=== PATIENT | male | born 1945 | race Caucasian/White ===

== ENCOUNTER → 2016-12-01 | Day surgery (SDC) | payer MEDICARE, OTHER ==
[~2016-12-01] MED LIST: Buffered Lidocaine 1% SYR 3ML* 3 ML/SYR SYRINGE INTRADERM ONE; Buffered Lidocaine 1% SYR 3ML* 3 ML/SYR SYRINGE ONE; DiMENhydriNATE IV* 50 MG/ML VIAL IV PUSH PRN; Famotidine IV* 10 MG/ML 2 ML (20 mg) IV ONE; Famotidine IV* 10 MG/ML 2 ML (20 mg) ONE; Ketorolac INJ* 30 MG/ML 1 ML VIAL ONE; Lidocaine 1% INJ* 10 MG/ML 30 ML SDV ONE; Lidocaine 2% PF * 5 ML VIAL ONE; Midazolam* 1 MG/ML 5 ML VIAL (5 MG) ONE; Ondansetron INJ* 2 MG/ML VIAL ONE; Propofol* 10 MG/ML 20 ML BTL IV PUSH ONE; fentaNYL* 50 MCG/ML 2 ML VIAL (100 MCG VIAL) ONE
[2016-12-01 10:50] VITALS: BP 130/76
--- NOTE | 2016-12-01 22:40 | OP ---
DATE OF OPERATION: 12/01/16 FORMERLY [facility] DATE OF : 49 SURGEON: Dr. Queen EXIT BOOTH AGENT: [facility] Carvajal ANESTHESIOLOGIST: Yudelka Sanches MD ANESTHESIA: Local MAC. PRE-OP DIAGNOSIS: Left carpal tunnel syndrome. POST-OP DIAGNOSIS: Left carpal tunnel syndrome. OPERATIVE PROCEDURE: Left carpal tunnel release. ESTIMATED BLOOD LOSS: Zero. TOURNIQUET TIME: 5 minutes. INDICATION FOR PROCEDURE: Raghavendra is a 71-year-old man with numbness and tingling in the median nerve distribution of his left hand. He presents for left carpal tunnel release. DESCRIPTION OF PROCEDURE: The patient was brought to the operating room, was given a sedation anesthetic, and a local infiltration with 10 cc of 1% plain lidocaine in the palm of his left hand. The skin of his left hand and forearm was prepped and draped in the usual sterile fashion. The hand and forearm were exsanguinated and the tourniquet elevated to 250 mmHg. A longitudinal incision was made in the palm in line with the ring finger. We dissected through the subcutaneous tissue sharply down to the transverse carpal ligament. The ligament was then incised with a knife and then more proximally with the scissors. The nerve was dissected free from the surrounding tissue, and there was an area of moderate compression at the mid portion of the ligament. The wound was irrigated and the skin edges were reapproximated with 4-0 nylon suture. The wound was dressed with Xeroform, 4x4, Webril, and an Mo wrap. The patient tolerated the procedure well and was brought to the recovery room in good condition. [id number]/[facility] #: [id number] MTDD
--- NOTE | 2016-12-27 21:33 | HP ---
PREOPERATIVE HISTORY AND PHYSICAL EXAM: DATE OF SURGERY/ADMISSION: 12/01/16 FOR[facility]LY [facility] DATE OF OFFICE VISIT/ENCOUNTER: 11/06/16 AGE: 71. ATTENDING SURGEON: Mikayla Queen MD PROCEDURE: Left wrist carpal tunnel release. CHIEF COMPLAINT: Numbness and tingling in left hand. HISTORY OF PRESENT ILLNESS: This is a 71-year-old male complaining of numbness and tingling in his left hand that has been present off and on for several years now. However, over the past month, it has been significantly worsening. He is interested in pursuing definitive treatment at this time in the form of a left carpal tunnel release. He had a right carpal tunnel release performed back in 2014 and has done quite well with that. The patient had a history of atrial fibrillation and has had 3 myocardial infarctions in the past. He has a defibrillator in place. He is on warfarin sodium 5 mg and we will plan on having him remain on warfarin throughout the surgical timeframe. We will also receive clearance for surgery from his sap data analyst, Dr. Abraham. PAST MEDICAL HISTORY: 1. History of atrial fibrillation. 2. Hypertension. 3. History of 3 myocardial infarctions. 4. History of stroke. 5. Hypercholesterolemia. PAST SURGICAL HISTORY: 1. Defibrillator placement. 2. Bilateral total knee arthroplasties by Dr. Perez. 3. Cardiac stent placement. 4. Right carpal tunnel release. CURRENT MEDICATIONS: 1. Amlodipine besylate 2.5 mg b.i.d. 2. Aspirin 81 mg daily. 3. Carvedilol 12.5 mg b.i.d. 4. Crestor 10 mg daily. 5. Irbesartan 150 mg daily. 6. Nitrostat 0.4 mg 1 sublingual q.5 minutes up to 3 doses p.r.n. 7. Ranitidine HCl 75 mg b.i.d. 8. Warfarin sodium 5 mg 1 tab daily 6 days a week; 1.5 tabs on Sunday or as directed. ALLERGIES: LIPITOR causes muscle cramps. NIASPAN, reaction unknown. OXYCODONE , reaction unknown. ULTRACET, reaction unknown. FAMILY MEDICAL HISTORY: Noncontributory. SOCIAL HISTORY: The patient is retired. He reports being a former smoker, but quit 40 years ago. He denies illicit drug use. He does admit to alcohol use on occasion. REVIEW OF SYSTEMS: General: Negative for fevers, chills, or night sweats. No known anesthesia problems. HEENT: Negative for headache, lightheadedness, or syncopal episodes. Integumentary: Negative for abrasions, lesions, or open wounds. Cardiothoracic: Positive for history of myocardial infarction x2. Positive for hypertension. Positive for history of atrial fibrillation. Negative for current chest pain, palpitations, or edema. Pulmonary: Positive for shortness of breath with exertion. Negative for chronic cough or COPD. GI : Negative for nausea, vomiting, diarrhea, constipation, or GERD. : Negative for nocturia, urinary frequency, urgency, history of UTIs, or kidney problems. Musculoskeletal: Positive for current complaint. Negative for chronic or intermittent back pain or history of fractures. Neurological: Positive for history of strokes. Negative for history of seizure or epilepsy. Endocrine: Negative for diabetes or thyroid issues. Hematologic: Positive for easy bruising and easy bleeding secondary to Coumadin. Negative for history of DVT. Infectious Disease: Negative for history of MRSA, hepatitis C , or HIV. PHYSICAL EXAMINATION GENERAL: Well-developed, well-nourished 71-year-old male in no acute distress. VITAL SIGNS: Height 5 feet tall, weight 206 pounds, pulse rate 64, blood pressure 116/80. HEENT: Normocephalic, atraumatic. Pupils are equal, round, and reactive to light and accommodation. Extraocular movements are intact. NECK: Supple. No palpable lymph nodes. Throat is clear. PULMONARY: Lungs are clear to auscultation bilaterally. No wheezes, rales, or rhonchi. CARDIOTHORACIC: Regular rate and rhythm. S1, S2. No murmurs, rubs, or gallops. No edema. ABDOMEN: Positive bowel sounds. Soft, nontender. NEUROLOGICAL: Alert and oriented x3. Cranial nerves II through XII are intact. Sensation is intact to light touch. MUSCULOSKELETAL: On exam of his left upper wrist/hand, he has no thenar wasting. There is a negative Tinel's sign, but decreased sensation to light touch in the median nerve distribution of the left hand. Positive Phalen's test. He has good range of motion of his wrist and can make a full fist. There is some weakness with thumb abduction. DIAGNOSTIC STUDIES: EMG nerve conduction study shows [id number] carpal tunnel syndrome on the left. PLAN: The patient is scheduled to undergo left wrist carpal tunnel release with Dr. Queen on 12/01/16. He will return to the office in 10 to 14 days postop for followup and suture removal. A prescription for [place] was e-scribed to the patient's pharmacy for postoperative pain management as he has allergies to ULTRACET and OXYCODONE. He will remain on his Coumadin throughout the surgical timeframe and we will receive clearance from his sap data analyst, Dr. Abraham, prior to surgery. [facility] JHA [id number]/[facility] #: [id number] YURI
== END | disposition home or self-care (01) ==
LOC: OREAST 08:30
PROVIDERS: ATTEND Orthopaedic Surgery
DX: G56.02 Carpal tunnel syndrome, left upper limb (principal); I25.10 Atherosclerotic heart disease of native coronary artery without angina pectoris; I25.2 Old myocardial infarction; Z95.818 Presence of other cardiac implants and grafts; Z79.01 Long term (current) use of anticoagulants; I48.91 Unspecified atrial fibrillation; I10 Essential (primary) hypertension; G47.33 Obstructive sleep apnea (adult) (pediatric)
CPT/HCPCS: J1885; J2250; J2405; J2704; J3010

== ENCOUNTER 2017-07-13 11:41 | Observation (INO) | payer MEDICARE, OTHER ==
[2017-07-13] MEDS ORDERED: Famotidine IV* 10 MG/ML 2 ML (20 mg) IV SLOW PU ONE (12:05)
[2017-07-13] MEDS ORDERED: methylPREDNISolone 125 MG* 2 ML VIAL IV ONE (12:05)
[2017-07-13 12:57] LABS: Hematocrit 40 % (42-52); Hemoglobin 13.3 g/dl (14.0-18.0); Mean Corpuscular HGB Conc 34 g/dl (31-36); Mean Corpuscular Hemoglobin 31 pg (27-31); Mean Corpuscular Volume 91 fL (80-94); Mean Platelet Volume 8 um3 (7.4-10.4); Red Blood Count 4.36 10^6/ul (4.0-5.4); Red Cell Distribution Width 13 % (10.5-15); White Blood Count 5.9 10^3/ul (3.5-10.8)
[2017-07-13 13:09] LABS: Albumin 3.6 g/dL (3.2-5.2); BUN/Creatinine Ratio 14.3 (8-20); Calcium 8.8 mg/dL (8.6-10.3); EGFR African American 83.4 (>60); EGFR Non-African American 64.8 (>60); Globulin 3.1 g/dL (2-4); Magnesium 1.9 mg/dL (1.9-2.7); Total Bilirubin 0.5 mg/dL (0.2-1.0); Total Protein 6.7 g/dL (6.4-8.9)
--- NOTE | 2017-07-13 13:41 | ED ---
Woody Trujillo Benjamin, scribed for Tre Boogie MD on 07/13/17 at 1204 . Allergic Reaction/Systemic - HPI Summary HPI Summary: 72yo male SHERYL c/o having an allergic reaction 30 minutes after taking flagyl, which the pt was rxed for his diverticulitis. 30 minutes after PO intake of flagyl, pt had low BP, became diaphoretic, and mildly SOB. Pt went to PCP for his symptoms and was given 0.5mg Epi. Pt was also given 50mg IV Benadryl by EMS. Pt has a defibrillator in place. Pt denies any CP or palpitations. No swelling in face, throat, or lips. FHx of [place]. - History of Current Complaint Chief Complaint: EDAllergicReaction Time Seen by Provider: 07/13/17 11:53 Hx Obtained From: Patient Onset/Duration: Sudden Onset, Started hours ago - 1 hour ago, Resolved Timing: Intermittent Severity Initially: Moderate Severity Currently: None Pain Intensity: 0 Pain Scale Used: 0-10 Numeric Associated Signs And Symptoms: Positive: Diaphoresis, Difficulty Breathing, Other: - low BP - Allergies/Home Medications Allergies/Adverse Reactions: Allergies Allergy/AdvReac Type Severity Reaction Status Date / Time Acetaminophen [From Ultracet] Allergy Unknown Verified 07/13/17 12:33 Reaction Details Oxycodone [From Percocet] Allergy Hallucinati Verified 07/13/17 12:33 ons Tramadol [From Ultracet] Allergy Unknown Verified 07/13/17 12:33 Reaction Details Atorvastatin [From Lipitor] AdvReac Severe Muscle Ache Verified 07/13/17 12:33 Niacin [From Niaspan] AdvReac Intermediate Rash Verified 07/13/17 12:33 PMH/Surg Hx/FS Hx/Imm Hx Endocrine/Hematology History: Denies: Hx Anticoagulant Therapy, Hx Diabetes, Hx Sickle Cell Disease Cardiovascular History: Reports: Hx Angina, Hx Auto Implanted Cardiovert Defib, Hx Coronary Artery Disease, Hx Hypercholesterolemia, Hx Hypertension - ON MEDICATION FOR, Hx Myocardial Infarction, Hx Pacemaker/ICD - DR. MORALES FOLLOWS - [facility] DEFIBRILLATOR-, Hx Valvular Heart Disease, Other Cardiovascular Problems/Disorders - IRREGULAR HEART BEAT / HX OF A-FIB Denies: Hx Congestive Heart Failure, Hx Hypotension Respiratory History: Reports: Hx Sleep Apnea - NO MACHINE FOR Denies: Hx Asthma, Hx Chronic Obstructive Pulmonary Disease (COPD), Other Respiratory Problems/Disorders GI History: Reports: Hx Gastroesophageal Reflux Disease - PRN ROLAIDS FOR- STATES WATCHES HIS DIET Denies: Other GI Disorders History: Denies: Hx Renal Disease, Other Problems/Disorders Musculoskeletal History: Reports: Hx Arthritis - BOTH KNEES, BOTH HANDS Sensory History: Reports: Hx Contacts or Glasses - GLASSES, Hx Hearing Aid - BILATERAL EARS Opthamlomology History: Reports: Hx Contacts or Glasses - GLASSES Neurological History: Reports: Hx Headaches - NONE IN A WHILE, Hx Transient Ischemic Attacks (TIA), Other Neuro Impairments/Disorders - Cancer History Hx Chemotherapy: No - Surgical History Surgery Procedure, Year, and Place: 2008 - AICD placement-[facility]. CARDIAC STENT - 1993, [facility]. 1999 ATRIAL SEPTAL REPAIR, [facility]. EGD WITH CLOSED BIOPSY. 2012 RIGHT TOTAL KNEE REPLACEMENT, [facility]. 2013 LEFT TOTAL KNEE REPLACEMENT, [facility]. 10/2014 LEFT KNEE ARTHROSCOPIC SURGERY WITH WASHOUT OF HEMOTOMA AND SYNOVIAL BIOPSY, [facility]. 06/2015 RIGHT CARPAL TUNNEL RELEASE, [facility] Hx Anesthesia Reactions: No - Immunization History Date of Tetanus Vaccine: 2010 Date of Influenza Vaccine: 03/09 Infectious Disease History: No Infectious Disease History: Denies: Traveled Outside the [place] in Last 30 Days - Family History Known Family History: Positive: Cardiac Disease - [place] - Social History Occupation: Retired Lives: With Family Alcohol Use: Weekly Alcohol Amount: EVERY OTHER DAY - SEVERAL DRINKS Substance Use Type: Reports: None Smoking Status (MU): Former Smoker Type: Cigarettes Amount Used/How Often: X 1 YEAR Length of Time of Smoking/Using Tobacco: 1 YEAR (1971) Have You Smoked in the Last Year: No Review of Systems Positive: Skin Diaphoresis. Negative: Fever, Chills Eyes: Negative ENT: Negative Negative: Sore Throat Cardiovascular: Negative Negative: Palpitations, Chest Pain Respiratory: Negative Positive: Shortness Of Breath. Negative: Cough Gastrointestinal: Negative Genitourinary: Negative Positive: no symptoms reported Musculoskeletal: Negative Skin: Negative Negative: Rash Neurological: Negative Psychological: Normal All Other Systems Reviewed And Are Negative: Yes Physical Exam Triage Information Reviewed: Yes Vital Signs On Initial Exam: Initial Vitals Temp Pulse Resp BP Pulse Ox 96.9 F 58 12 131/81 100 07/13/17 11:48 07/13/17 11:48 07/13/17 11:48 07/13/17 11:48 07/13/17 11:48 Vital Signs Reviewed: Yes Appearance: Positive: Well-Appearing, No Pain Distress Skin: Positive: Warm, Skin Color Reflects Adequate Perfusion Head/Face: Positive: Normal Head/Face Inspection ENT: Positive: Pharynx normal Neck: Positive: Nontender Respiratory/Lung Sounds: Positive: Clear to Auscultation, Breath Sounds Present Cardiovascular: Positive: RRR, Other - aicd in right upper anterior chest wall.. Negative: Murmur Abdomen Description: Positive: Nontender Musculoskeletal: Positive: Strength/ROM Intact Neurological: Positive: Sensory/Motor Intact, Alert, Oriented to Person Place, Time, CN Intact II-III, Speech Normal Psychiatric: Positive: Normal Diagnostics - Vital Signs Vital Signs Temp Pulse Resp BP Pulse Ox 07/13/17 11:48 96.9 F 58 12 131/81 100 - Laboratory Result Diagrams: 07/13/17 12:37 07/13/17 12:37 Lab Statement: Any lab studies that have been ordered have been reviewed, and results considered in the medical decision making process. - EKG 1207. Cardiac Rate: Bradycardia - 54bpm EKG Rhythm: Sinus Bradycardia EKG Interpretation: NO STEMI EKG Comparison: No Significant Change - No acute changes compared to 10/04/13. Re-Evaluation - Re-Evaluation First Eval Re-Evaluation Time: 13:07 Change: Improved - Pt states feeling better now. Second Eval Re-Evaluation Time: 13:24 Comment: Reviewed pts lab results with the pt. Also discussed course of treatment and admission disposition. Allergic Reaction Course/Dx - Course Course Of Treatment: Reviewed pts medication and allergy lists. Blood pressure noted. Discussed with Dr. Weiner (Hospitalist) at 1325 hour. The patient should be observed for more time perhaps another 8 hours to be sure he does not relapse. - Diagnoses Provider Diagnoses: Anaphylaxis Discharge - Discharge Plan Condition: Good Disposition: ADMITTED TO [facility] documentation as recorded by the Woody samson Benjamin accurately reflects the service I personally performed and the decisions made by me, Tre Boogie MD.
[2017-07-13 13:43] LABS: TSH (Thyroid Stimulating Horm) 1.21 mcIU/mL (0.34-5.60)
[2017-07-13 14:08] LABS: Urine Bacteria Absent (Absent); Urine Bilirubin Negative (Negative); Urine Glucose Negative (Negative); Urine Nitrite Negative (Negative)
[2017-07-13] MEDS ORDERED: Al Hydrox/Mg Hydrox/Simet LIQ* 30 ML UDC PO PRN (14:20)
[2017-07-13] MEDS ORDERED: Albuterol 2.5 MG/3 ML NEB.SOL* (0.083%) INH PRN (14:20)
[2017-07-13] MEDS ORDERED: Nitroglycerin TAB 0.4 MG* 0.4 MG TAB SL PRN (14:23)
[2017-07-13] MEDS ORDERED: Warfarin TAB(*) 5 MG PO SCH (17:00)
[2017-07-13] MEDS ORDERED: CMC:Irbesartan (NF) 150 MG TAB PO SCH (18:00)
[2017-07-13] MEDS ORDERED: CMC:Rosuvastatin (NF) 20 MG TAB PO SCH (18:00)
--- NOTE | 2017-07-13 21:23 | HP ---
HISTORY AND PHYSICAL: DATE OF ADMISSION: 07/13/17 PRIMARY CARE PHYSICIAN: Dr. Winters. CHIEF COMPLAINT: Hypotension. HISTORY OF PRESENT ILLNESS: This is a 72-year-old man, who was diagnosed with diverticulitis by his PCP 2 days ago, who was being treated with ciprofloxacin and metronidazole. He took his first dose of metronidazole this morning and approximately 30 minutes later, he began to feel lightheaded, diz zy, and like he was going to pass out. He had his take his blood pressure and it was reported to be low; however, he does not remember the numbers. They went to their PCP office, where he began to feel shortness of breath and like "his throat was closing up" and was reported to be hypotensive at his PCP's office as well. He received epinephrine there and was sent to the emergency departmen t. He reports after he received epinephrine at his PCP's office, he began to feel much better quick ly. At the time of symptoms, he denied chest pain, palpitations, nausea, vomiting, but did endorse diaphoresis and shortness of breath. He did not lose consciousness. ED COURSE: Pepcid, Solu-Medrol. He had received 50 mg IV Benadryl in EMS and 0.5 mg of IM epinephr ine at his primary care physician's office. PAST MEDICAL HISTORY: 1. CAD, status post PCI, AICD (he is unsure why this was placed). 2. Diverticulitis diagnosed 2 days ago. 3. CVA without residual deficits. 4. Atrial fibrillation, on anticoagulation. MEDICATIONS: Current home medications: 1. Amlodipine 2.5 mg daily. 2. Crestor 10 mg daily. 3. Irbesartan 150 mg daily. 4. Coreg 12.5 mg b.i.d. 5. Aspirin 81 mg daily. 6. Coumadin 5 mg daily, Sunday through Sunday and 7.5 on Mondays. SOCIAL HISTORY: He lives at home with his at [place]. 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 He does not smoke and he does drink alcohol; however, he was not drinking yesterday or today. REVIEW OF SYSTEMS: Negative for weight loss, fevers, or chills. Positive for diarrhea that is impr oving, left lower quadrant abdominal pain that is improving. Denies nausea. Denies dysuria. Denies weakness, headache. Denies rashes. Denies tongue swelling. PHYSICAL EXAMINATION GENERAL: Alert, well-appearing man, in no distress. VITAL SIGNS: Blood pressure 131/81, heart rate 58, pulse ox 100% on room air, respiratory rate 12, temperature 96.9. HEENT: Pupils equal, round, and reactive to light. Tongue is normal. No pharyngeal exudates. NECK: No JVP. No lymphadenopathy. Thyroid is nonpalpable. CHEST: Regular rate and rhythm with no murmurs. PMI is nondisplaced. AICD is on the right chest w all. Lungs are clear bilaterally. No bronchospasm. ABDOMEN: Soft, mildly tender in the left lower quadrant without guarding or rebound. Bowel sounds are normoactive. EXTREMITIES: Distal hair loss is noted on bilateral legs. No edema. No rashes. No swelling. DIAGNOSTIC STUDIES/LAB DATA: On admission, white blood cells 5.9, hemoglobin 13.3, platelets 198. Sodium 134, potassium 4.0, chloride 104, bicarb 27, BUN 16, creatinine 1.1. LFTs are within normal limits. First troponin was 0.00. EKG: Sinus bradycardia, left axis deviation, first-degree AV block, Q wave in V1 through V3, T-wave inversions precordially, this is unchanged from prior EKG. A CT abdomen on 07/12/17 showed mild diverticulitis of the sigmoid colon. ASSESSMENT AND PLAN: This is a 72-year-old man with history of coronary artery disease, cerebrovasc ular accident, and recent diagnosis of diverticulitis, presenting with shortness of breath and hypot ension shortly after taking his first of metronidazole. 1. Anaphylaxis. While metronidazole is an uncommon medication to cause anaphylaxis, his history, s ymptoms, timing, and presentation do correlate with the diagnosis of anaphylaxis as to his response to epinephrine. His symptoms have all resolved at this time. He is being admitted for observation in case of a biphasic reaction. I will continue IV fluids and monitor his vitals as well as telemet ry. 2. Acute diverticulitis. He has been able to tolerate good p.o. intake. I do not suspect dehydrat ion was contributing to his presentation. I will switch his antibiotics from Cipro and Flagyl to am oxicillin clavulanate p.o. and continue p.o. intake as tolerated. 3. Coronary artery disease. Continue aspirin and statin. No evidence of acute coronary syndrome. 4. Cerebrovascular accident. Continue aspirin and statin. No evidence of neurologic dysfunction. 5. Atrial fibrillation. He is not currently noted to be in atrial fibrillation. Check INR and cont inue warfarin. [id number]/[facility] #: [id number]
[2017-07-13] MEDS: Amoxicillin/Clavulanate TAB* 875 MG PO SCH (21:37)
[2017-07-13] MEDS: Carvedilol TAB* 6.25 MG PO SCH (21:37)
[2017-07-14 06:04] LABS: Hematocrit 40 % (42-52); Hemoglobin 13.5 g/dl (14.0-18.0); Mean Corpuscular HGB Conc 34 g/dl (31-36); Mean Corpuscular Hemoglobin 31 pg (27-31); Mean Corpuscular Volume 92 fL (80-94); Mean Platelet Volume 8 um3 (7.4-10.4); Red Blood Count 4.35 10^6/ul (4.0-5.4); Red Cell Distribution Width 13 % (10.5-15); White Blood Count 9.3 10^3/ul (3.5-10.8)
[2017-07-14 06:21] LABS: Albumin 3.6 g/dL (3.2-5.2); BUN/Creatinine Ratio 15.6 (8-20); Calcium 8.5 mg/dL (8.6-10.3); EGFR African American 107.3 (>60); EGFR Non-African American 83.4 (>60); Potassium 3.9 mmol/L (3.5-5.0); Total Bilirubin 0.4 mg/dL (0.2-1.0); Total Protein 6.6 g/dL (6.4-8.9)
[2017-07-14] MEDS: Carvedilol TAB* 6.25 MG PO SCH (07:53)
[2017-07-14] MEDS: Amoxicillin/Clavulanate TAB* 875 MG PO SCH (07:53)
[2017-07-14] MEDS: NS 0.9% 1000 ML* 1,000 ML IV SCH ×2 (07:53)
[2017-07-14] MEDS ORDERED: Aspirin EC Low Dose* 81 MG TAB.EC PO SCH (09:00)
--- NOTE | 2017-07-14 13:00 | PN ---
Subjective Date of Service: 07/14/17 Interval History: Mr. Ordonez choked while eating breakfast this morning. He thinks it is entirely attributable to the fact that he was eating to fast. He denies any sensation of throat tightness, difficulty swallowing, or shortness of breath. A staff member was at the bedside and performed the heimlich maneuver successfully. He is feeling well now and tolerated lunch without difficulty. Objective Active Medications: Al Hydrox/Mg Hydrox/Simethicone (Maalox Plus*) 30 ml PO Q6H PRN Albuterol (Ventolin 2.5 Mg/3 Ml Neb.Petra*) 2.5 mg INH [id number] AWAKE PRN Amoxicillin/Clavulanate Potassium (Augmentin Tab*) 875 mg PO BID JAIRON Aspirin (Aspirin Ec Low Dose*) 81 mg PO QAM JAIRON Carvedilol (Coreg Tab*) 12.5 mg PO BID JAIRON Sodium Chloride (Ns 0.9% 1000 Ml*) 1,000 mls @ 125 mls/hr IV PER RATE JAIRON Irbesartan (Avapro (Nf)) 75 mg PO QPM JAIRON Nitroglycerin (Nitroglycerin Tab 0.4 Mg*) 0.4 mg SL . NEEDED PRN Rosuvastatin Calcium (Crestor (Nf)) 20 mg PO QPM JAIRON Warfarin Sodium (Coumadin Tab(*)) 5 mg PO SuTuWeThFrSa@1700 JAIRON Warfarin Sodium (Coumadin Tab(*)) 7.5 mg PO Mo@1700 JAIRON Vital Signs: Temp Pulse Resp BP Pulse Ox 97.7 F 59 18 133/80 98 07/14/17 07:27 07/14/17 07:27 07/14/17 08:00 07/14/17 07:27 07/14/17 07:27 Oxygen Devices in Use Now: None Appearance: Male sitting up in bed in NAD Eyes: No Scleral Icterus Ears/Nose/Mouth/Throat: Mucous Membranes Moist Neck: Trachea Midline Respiratory: Symmetrical Chest Expansion and Respiratory Effort, Clear to Auscultation Cardiovascular: NL Sounds; No Murmurs; No JVD, No Edema Abdominal: NL Sounds; No Tenderness; No Distention Lymphatic: No Cervical Adenopathy Extremities: No Edema Skin: No Rash or Ulcers Neurological: Alert and Oriented x 3, NL Muscle Strength and Tone Nutrition: Taking PO's Result Diagrams: 07/14/17 05:57 07/14/17 05:57 Microbiology and Other Data: Microbiology 07/13/17 13:40 Urine Culture - Final Urine No Growth (<1,000 CFU/mL) Assess/Plan/Problems-Billing Assessment: Mr. Ordonez is a 72 yo male with a PMH of CAD, CVA, afib, and recent diagnosis of diverticulitis for which he was placed on cipro and metronidazole who was admitted on 07/13/17 with concern for anaphylaxis to metronidazole. - Patient Problems (1) Anaphylactic reaction Comment: - No evidece of biphasic reaction. (2) Diverticulitis Comment: - Continue augmentin x 10 days. (3) Afib Comment: - Continue warfarin and carvedilol. (4) CAD (coronary artery disease) Comment: - Asymptomatic. - Continue aspirin and rosuvastatin with BB and ARB. (5) DVT prophylaxis Comment: - Early mobility. (6) Full code status Status and Disposition: OBV. Discharge to home.
[2017-07-14 14:03] VITALS: BP 126/71
[2017-07-14] MEDS ORDERED: Enoxaparin(*) 40 MG/0.4 ML SYR SUBCUT SCH (15:00)
--- NOTE | 2017-07-15 02:14 | DS ---
CC: Dr. Ministerio Winters * [facility] MEDICINE DISCHARGE SUMMARY: DATE OF ADMISSION: 07/13/17 DATE OF DISCHARGE: 07/14/17 PRIMARY CARE PHYSICIAN: Dr. Ministerio Winters. ATTENDING PHYSICIAN: Dr. Dae Garcia * (dictation provided by Vesna Brice NP). PRIMARY DIAGNOSIS: Anaphylactic reaction to metronidazole. SECONDARY DIAGNOSES: 1. Atrial fibrillation. 2. History of cerebrovascular accident. 3. History of coronary artery disease, status post PCI. 4. History of AICD placement. 5. Diverticulitis, diagnosed 07/12/17 MEDICATIONS AT THE TIME OF DISCHARGE: 1. Augmentin 875/125 one tab p.o. b.i.d. x10 days. 2. Amlodipine 2.5 mg p.o. daily. 3. Crestor 10 mg p.o. daily. 4. Irbesartan 150 mg p.o. daily. 5. Coreg 12.5 mg p.o. b.i.d. 6. Aspirin 81 mg daily. 7. Coumadin 5 mg Sunday through Sunday and 7.5 mg on Sunday. HOSPITAL COURSE: Mr. Ordonez is a 72-year-old male with a past medical history of diverticulitis diagnosed by his PCP the day before the admission who was treated with ciprofloxacin and metronidazole. He took his first dose of metronidazole and very shortly thereafter states that he felt "weird." He ended up taking his blood pressure and it was low, though he does not know the exact number. He ultimately was seen by his primary care physician and while at the office, he had felt that his throat was tightening. He was given epinephrine and transitioned to the emergency room. In the emergency room, he received Pepcid, Solu-Medrol and Benadryl for suspected anaphylactic reaction to metronidazole. Mr. Ordonez is doing well today. He has been monitored overnight out of concern for possible biphasic reaction. He has had no throat swelling, no evidence of difficulty swallowing, or shortness of breath. I will note that this morning the patient had an episode where he choked on a piece of egg during breakfast. He was given the Heimlich maneuver and recovered well. He feels certain that this happened because he often eats very quickly. He felt no throat tightness prior to that episode or after and has tolerated lunch well. Mr. Ordonez is doing well and is medically stable for discharge to home to follow up with Dr. Winters. DISPOSITION: To home. DIET: Low fat, low salt. ACTIVITY: As tolerated. FOLLOW-UP PLANS: Please follow up with doctor in Dr. Winters in the next 5 to 7 days regarding this acute observation stay in the hospital. TIME SPENT: Approximately 60 minutes were spent on the discharge of this patient, more than half that time was spent with the patient at the bedside reviewing the events leading up this hospitalization, performing the physical exam, and reviewing my plan of care. VESNA BRICE NP [id number]/[facility] #: [id number] YURI
[2017-07-16] MEDS ORDERED: Warfarin TAB(*) 7.5 MG PO SCH (17:00)
== END 2017-07-14 14:05 | disposition home or self-care (01) ==
LOC: ED 11:41 → MEDTELE 13:22
PROVIDERS: ADMIT Internal Medicine; ATTEND Internal Medicine
DX: T88.6XXA Anaphylactic reaction due to adverse effect of correct drug or medicament properly administered, initial encounter (principal); T37.8X5A Adverse effect of other specified systemic anti-infectives and antiparasitics, initial encounter; Y65.8 Other specified misadventures during surgical and medical care; Y92.9 Unspecified place or not applicable; I48.91 Unspecified atrial fibrillation; Z86.73 Personal history of transient ischemic attack (TIA), and cerebral infarction without residual deficits; I25.10 Atherosclerotic heart disease of native coronary artery without angina pectoris; Z95.5 Presence of coronary angioplasty implant and graft; Z95.810 Presence of automatic (implantable) cardiac defibrillator; K57.92 Diverticulitis of intestine, part unspecified, without perforation or abscess without bleeding; Z79.01 Long term (current) use of anticoagulants; Z79.82 Long term (current) use of aspirin; Z88.1 Allergy status to other antibiotic agents; Z88.5 Allergy status to narcotic agent; Z88.8 Allergy status to other drugs, medicaments and biological substances; K21.9 Gastro-esophageal reflux disease without esophagitis; Z96.652 Presence of left artificial knee joint; Z82.49 Family history of ischemic heart disease and other diseases of the circulatory system; Z87.891 Personal history of nicotine dependence
CPT/HCPCS: 36415; 80053; 81003; 81015; 83605; 83735; 84443; 84484; 85025; 85610; 87086; 93005; 96374; 99284; A9270-GY; G0378; J2930

== ENCOUNTER 2017-08-26 12:55 | Observation (INO) | payer MEDICARE, OTHER ==
[2017-08-26] MEDS ORDERED: Nitroglycerin TAB 0.4 MG* 0.4 MG TAB SL ONE (13:12)
[2017-08-26] MEDS ORDERED: Morphine INJ* 4 MG/ML 1 ML CARPUJECT IV ONE (13:12)
[2017-08-26] MEDS ORDERED: Ondansetron INJ* 2 MG/ML VIAL IV ONE (13:12)
[2017-08-26] MEDS: NS 0.9% 1000 ML* 1,000 ML IV SCH ×2 (13:23→17:07)
[2017-08-26] MEDS ORDERED: Pantoprazole IV* 40 MG IV ONE (13:25)
[2017-08-26] MEDS ORDERED: Lidocaine 2% VISCOUS* 15 ML UDC PO ONE (13:25)
[2017-08-26] MEDS ORDERED: Al Hydrox/Mg Hydrox/Simet LIQ* 30 ML UDC PO ONE (13:25)
[2017-08-26] MEDS ORDERED: Heparin for STEMI(*) 5,000 UNITS/ML 1 ML VIAL IV ONE (13:26)
[2017-08-26 13:32] LABS: Hematocrit 39 % (42-52); Hemoglobin 13.5 g/dl (14.0-18.0); Mean Corpuscular HGB Conc 34 g/dl (31-36); Mean Corpuscular Hemoglobin 31 pg (27-31); Mean Corpuscular Volume 91 fL (80-94); Mean Platelet Volume 8 um3 (7.4-10.4); Red Blood Count 4.32 10^6/ul (4.0-5.4); Red Cell Distribution Width 14 % (10.5-15); White Blood Count 7.6 10^3/ul (3.5-10.8)
--- NOTE | 2017-08-26 13:36 | RAD ---
HISTORY: Chest pain COMPARISONS: June 08, 2014 VIEWS: 1: frontal portable view of the chest at 1:20 PM FINDINGS: LINES AND TUBES: An ICD is noted. CARDIOMEDIASTINAL SILHOUETTE: The cardiomediastinal silhouette is normal for portable technique. PLEURA: The costophrenic angles are sharp. No pleural abnormalities are noted. LUNG PARENCHYMA: The lungs are clear. ABDOMEN: The upper abdomen is clear. There is no subphrenic gas. BONES AND SOFT TISSUES: No bone or soft tissue abnormalities are noted. IMPRESSION: NO ACTIVE CARDIOPULMONARY DISEASE.
[2017-08-26 13:45] LABS: Albumin 3.9 g/dL (3.2-5.2); BUN/Creatinine Ratio 16.7 (8-20); C Reactive Protein 1.28 mg/L (< 5.00); Calcium 9.1 mg/dL (8.6-10.3); EGFR African American 99.6 (>60); EGFR Non-African American 77.4 (>60); Potassium 4.4 mmol/L (3.5-5.0); Total Bilirubin 0.7 mg/dL (0.2-1.0); Total Protein 6.9 g/dL (6.4-8.9)
[2017-08-26 13:49] LABS: Troponin I 0.02 ng/mL (<0.04)
[2017-08-26 14:50] LABS: TSH (Thyroid Stimulating Horm) 1.19 mcIU/mL (0.34-5.60)
--- NOTE | 2017-08-26 16:35 | ED ---
Shahram Trujillo Jason, scribed for Jose Martinez MD on 08/26/17 at 1332 . HPI Chest Pain - HPI Summary HPI Summary: This patient is a 72 year old M BIBA to [facility] accompanied by with a chief complaint of intermittent pressured pain across the chest since 0800 today. The patient states that he woke up at 0600 and gradually developed pain that started in the abdomen and travelled to the chest by 0800. Additionally, he reports that the pain reminds him of previous heart attack pain that spread across the chest. The patient rates the pain at 0800 to be 5/10 in severity and the current pain 3/10 in severity. Symptoms aggravated by nothing. Symptoms alleviated by nitroglycerin (administered en route to [facility]), and 324 mg of Aspirin. The patient reports diaphoresis, presence of a gallbladder, history of heartburn, and currently taking HTN and HLD medication. The patient denies nausea, and SOB. 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 Abraham. - History of Current Complaint Chief Complaint: EDChestPainROMI Time Seen by Provider: 08/26/17 13:00 Hx Obtained From: Patient Onset/Duration: Started Hours Ago - 0800, Still Present Timing: Intermittent Initial Severity: Moderate Current Severity: Mild Pain Intensity: 3 Pain Scale Used: 0-10 Numeric Chest Pain Location: Diffuse - Across chest Chest Pain Radiates: No Character: Pressure/Squeezing Aggravating Factor(s): Nothing Alleviating Factor(s): Other: - Nitroglycerin Associated Signs and Symptoms: Positive: Other: - The patient reports diaphoresis. The patient denies nausea, and SOB. - Allergy/Home Medications Allergies/Adverse Reactions: Allergies Allergy/AdvReac Type Severity Reaction Status Date / Time Acetaminophen [From Ultracet] Allergy Unknown Verified 08/26/17 13:24 Reaction Details Metronidazole Allergy Anaphylatic Verified 08/26/17 13:24 Shock Oxycodone [From Percocet] Allergy Hallucinati Verified 08/26/17 13:24 ons Tramadol [From Ultracet] Allergy Unknown Verified 08/26/17 13:24 Reaction Details Atorvastatin [From Lipitor] AdvReac Severe Muscle Ache Verified 08/26/17 13:24 Niacin [From Niaspan] AdvReac Intermediate Rash Verified 08/26/17 13:24 Home Medications: Home Medications Amlodipine Besylate [Amlodipine Besylate] 2.5 mg PO DAILY 08/26/17 [History Confirmed 08/26/17] Multiple Vitamins W/ Minerals [Centrum Silver 50+Men] 1 tab PO DAILY 08/26/17 [ History Confirmed 08/26/17] Garrett-3 Fatty Acids [Fish Oil] 1,000 mg PO DAILY 08/26/17 [History Confirmed ] Ranitidine HCl 150 mg PO BID 08/26/17 [History Confirmed 08/26/17] Warfarin TAB(*) [Coumadin TAB(*)] 6 mg PO MO 08/26/17 [History Confirmed ] PMH/Surg Hx/FS Hx/Imm Hx Previously Healthy: No Endocrine/Hematology History: Denies: Hx Anticoagulant Therapy, Hx Diabetes, Hx Sickle Cell Disease Cardiovascular History: Reports: Hx Angina, Hx Auto Implanted Cardiovert Defib, Hx Coronary Artery Disease, Hx Hypercholesterolemia, Hx Hypertension - ON MEDICATION FOR, Hx Myocardial Infarction, Hx Pacemaker/ICD - DR. ABRAHAM FOLLOWS - [facility] DEFIBRILLATOR-, Hx Valvular Heart Disease, Other Cardiovascular Problems/Disorders - IRREGULAR HEART BEAT / HX OF A-FIB Denies: Hx Congestive Heart Failure, Hx Hypotension Respiratory History: Reports: Hx Sleep Apnea - NO MACHINE FOR Denies: Hx Asthma, Hx Chronic Obstructive Pulmonary Disease (COPD), Other Respiratory Problems/Disorders GI History: Reports: Hx Gastroesophageal Reflux Disease - PRN ROLAIDS FOR- STATES WATCHES HIS DIET Denies: Other GI Disorders History: Denies: Hx Renal Disease, Other Problems/Disorders Musculoskeletal History: Reports: Hx Arthritis - BOTH KNEES, BOTH HANDS Sensory History: Reports: Hx Contacts or Glasses, Hx Hearing Aid Opthamlomology History: Reports: Hx Contacts or Glasses Neurological History: Reports: Hx Headaches - NONE IN A WHILE, Hx Transient Ischemic Attacks (TIA), Other Neuro Impairments/Disorders - Cancer History Hx Chemotherapy: No - Surgical History Surgery Procedure, Year, and Place: 2008 - AICD placement-[facility]. CARDIAC STENT - 1993, [place]. 1999 ATRIAL SEPTAL REPAIR, [facility]. EGD WITH CLOSED BIOPSY. 2012 RIGHT TOTAL KNEE REPLACEMENT, [facility] – [place]. 2013 LEFT TOTAL KNEE REPLACEMENT, [facility] [place]. 10/2014 LEFT KNEE ARTHROSCOPIC SURGERY WITH WASHOUT OF HEMOTOMA AND SYNOVIAL BIOPSY, [facility] – [place]. 06/2015 RIGHT CARPAL TUNNEL RELEASE, [facility] Hx Anesthesia Reactions: No - Immunization History Date of Tetanus Vaccine: 2010 Date of Influenza Vaccine: 03/09 Infectious Disease History: Reports: Hx Shingles Denies: Traveled Outside the [place] in Last 30 Days - Family History Known Family History: Positive: Cardiac Disease - MS - Social History Occupation: Retired Lives: With Family Alcohol Use: Rare Alcohol Amount: EVERY OTHER DAY - SEVERAL DRINKS Substance Use Type: Reports: None Smoking Status (MU): Former Smoker Type: Cigarettes Amount Used/How Often: X 1 YEAR Length of Time of Smoking/Using Tobacco: 1 YEAR (1971) Have You Smoked in the Last Year: No Review of Systems Positive: Skin Diaphoresis Positive: Chest Pain - across chest Negative: Shortness Of Breath Negative: Nausea All Other Systems Reviewed And Are Negative: Yes Physical Exam - Summary Physical Exam Summary: General: well-appearing, no pain distress Skin: warm, color reflects adequate perfusion, dry Head: normal Eyes: EOMI, CINTHIA ENT: normal Neck: supple, nontender Respiratory: CTA, breath sounds present Cardiovascular: RRR Abdomen: soft, nontender Bowel: present Musculoskeletal: normal, strength/ROM intact Neurological: normal, sensory/motor intact, A&O x3 Triage Information Reviewed: Yes Vital Signs On Initial Exam: Initial Vitals Temp Pulse Resp BP Pulse Ox 97.4 F 66 23 120/81 97 08/26/17 13:03 08/26/17 13:03 08/26/17 13:03 08/26/17 13:03 08/26/17 13:03 Vital Signs Reviewed: Yes Diagnostics - Vital Signs Vital Signs Temp Pulse Resp BP Pulse Ox 08/26/17 13:30 72 15 117/79 97 08/26/17 13:27 56 8 115/82 98 08/26/17 13:23 16 08/26/17 13:04 74 16 98 08/26/17 13:03 97.4 F 66 23 120/81 97 - Laboratory Lab Results: Lab Results 08/26/17 08/26/17 08/26/17 Range/Units 13:10 13:10 13:10 WBC (3.5-10.8) 10^3/ul RBC (4.0-5.4) 10^6/ul Hgb (14.0-18.0) g/dl Hct (42-52) % MCV (80-94) fL MCH (27-31) pg MCHC (31-36) g/dl RDW (10.5-15) % Plt Count (150-450) 10^3/ul MPV (7.4-10.4) um3 Neut % (Auto) (38-83) % Lymph % (Auto) (25-47) % [place] % (Auto) (1-9) % Eos % (Auto) (0-6) % Baso % (Auto) (0-2) % Absolute Neuts (auto) (1.5-7.7) 10^3/ul Absolute Lymphs (auto) (1.0-4.8) 10^3/ul Absolute Monos (auto) (0-0.8) 10^3/ul Absolute Eos (auto) (0-0.6) 10^3/ul Absolute Basos (auto) (0-0.2) 10^3/ul Absolute Nucleated RBC 10^3/ul Nucleated RBC % INR (Anticoag Therapy) 2.12 H (0.89-1.11) APTT 35.4 (26.0-36.3) seconds D-Dimer, Quantitative < 200 (Less Than 230) ng/mL Sodium 132 L (133-145) mmol/L Potassium 4.4 (3.5-5.0) mmol/L Chloride 104 (101-111) mmol/L Carbon Dioxide 23 (22-32) mmol/L Anion Gap 5 (2-11) mmol/L BUN 16 (6-24) mg/dL Creatinine 0.96 (0.67-1.17) mg/dL Est GFR ( Amer) 99.6 (>60) Est GFR (Non-Af Amer) 77.4 (>60) BUN/Creatinine Ratio 16.7 (8-20) Glucose 103 H (70-100) mg/dL Lactic Acid (0.5-2.0) mmol/L Calcium 9.1 (8.6-10.3) mg/dL Magnesium 2.0 (1.9-2.7) mg/dL Total Bilirubin 0.70 (0.2-1.0) mg/dL AST 36 (13-39) U/L ALT 36 (7-52) U/L Alkaline Phosphatase 48 (34-104) U/L Total Creatine Kinase 131 (10-223) U/L CK-MB (CK-2) 1.6 (0.6-6.3) ng/mL Myoglobin 39.3 (17.4-105.7) ng/mL Troponin I 0.02 (<0.04) ng/mL C-Reactive Protein 1.28 (< 5.00) mg/L B-Natriuretic Peptide 103 H ( - 100) pg/mL Total Protein 6.9 (6.4-8.9) g/dL Albumin 3.9 (3.2-5.2) g/dL Globulin 3.0 (2-4) g/dL Albumin/Globulin Ratio 1.3 (1-3) Lipase 13 (11.0-82.0) U/L TSH 1.19 (0.34-5.60) mcIU/mL 08/26/17 08/26/17 Range/Units 13:10 13:10 WBC 7.6 (3.5-10.8) 10^3/ul RBC 4.32 (4.0-5.4) 10^6/ul Hgb 13.5 L (14.0-18.0) g/dl Hct 39 L (42-52) % MCV 91 (80-94) fL MCH 31 (27-31) pg MCHC 34 (31-36) g/dl RDW 14 (10.5-15) % Plt Count 214 (150-450) 10^3/ul MPV 8 (7.4-10.4) um3 Neut % (Auto) 71.5 (38-83) % Lymph % (Auto) 17.2 L (25-47) % [place] % (Auto) 7.6 (1-9) % Eos % (Auto) 3.1 (0-6) % Baso % (Auto) 0.6 (0-2) % Absolute Neuts (auto) 5.4 (1.5-7.7) 10^3/ul Absolute Lymphs (auto) 1.3 (1.0-4.8) 10^3/ul Absolute Monos (auto) 0.6 (0-0.8) 10^3/ul Absolute Eos (auto) 0.2 (0-0.6) 10^3/ul Absolute Basos (auto) 0 (0-0.2) 10^3/ul Absolute Nucleated RBC 0 10^3/ul Nucleated RBC % 0 INR (Anticoag Therapy) (0.89-1.11) APTT (26.0-36.3) seconds D-Dimer, Quantitative (Less Than 230) ng/mL Sodium (133-145) mmol/L Potassium (3.5-5.0) mmol/L Chloride (101-111) mmol/L Carbon Dioxide (22-32) mmol/L Anion Gap (2-11) mmol/L BUN (6-24) mg/dL Creatinine (0.67-1.17) mg/dL Est GFR ( Amer) (>60) Est GFR (Non-Af Amer) (>60) BUN/Creatinine Ratio (8-20) Glucose (70-100) mg/dL Lactic Acid 0.9 (0.5-2.0) mmol/L Calcium (8.6-10.3) mg/dL Magnesium (1.9-2.7) mg/dL Total Bilirubin (0.2-1.0) mg/dL AST (13-39) U/L ALT (7-52) U/L Alkaline Phosphatase (34-104) U/L Total Creatine Kinase (10-223) U/L CK-MB (CK-2) (0.6-6.3) ng/mL Myoglobin (17.4-105.7) ng/mL Troponin I (<0.04) ng/mL C-Reactive Protein (< 5.00) mg/L B-Natriuretic Peptide ( - 100) pg/mL Total Protein (6.4-8.9) g/dL Albumin (3.2-5.2) g/dL Globulin (2-4) g/dL Albumin/Globulin Ratio (1-3) Lipase (11.0-82.0) U/L TSH (0.34-5.60) mcIU/mL Result Diagrams: 08/26/17 13:10 08/26/17 13:10 Lab Statement: Any lab studies that have been ordered have been reviewed, and results considered in the medical decision making process. - Radiology CXR Radiology Interpretation Completed By: Radiologist - NO ACTIVE CARDIOPULMONARY DISEASE. ED physician has reviewed this radiology report and agrees. - EKG 1300 Cardiac Rate: Bradycardia EKG Rhythm: Sinus Bradycardia ST Segment: Non-Specific - Anterior ST Elevation Ectopy: PVCs EKG Interpretation: Slight ST depression V5-V6. No ST change in inferior leads. EKG Comparison: No Significant Change - from 2016 EKG 1418 Cardiac Rate: Bradycardia EKG Rhythm: Sinus Bradycardia ST Segment: Non-Specific - Anterior ST Elevation Ectopy: None EKG Interpretation: Slight ST depression V5-V6. No ST change in inferior leads. Re-Evaluation - Re-Evaluation First Eval Re-Evaluation Time: 13:52 Change: Improved Comment: Patient has received pain medication and has improved condition. Chest Pain Course/Dx - Course Course Of Treatment: This patient is a 72 year old M BIBA to [facility] accompanied by with a chief complaint of intermittent pressured pain across the chest since 0800 today. The patient states that he woke up at 0600 and gradually developed pain that started in the abdomen and travelled to the chest by 0800. Additionally, he reports that the pain reminds him of previous heart attack pain that spread across the chest. The patient rates the pain at 0800 to be 5/ 10 in severity and the current pain 3/10 in severity. Symptoms aggravated by nothing. Symptoms alleviated by nitroglycerin. The patient reports diaphoresis, presence of a gallbladder, history of heartburn, and currently taking HTN and HLD medication. The patient denies nausea, and SOB. Critical care time less than 30 minutes. CXR reveals no active cardiopulmonary disease. ON ARRIVAL TO ED, DISCUSSED WITH DR ABRAHAM WHO WAS ALSO ABLE TO REVIEW THE EKG. NO OBVIOUS EKG CHANGES FROM 07/15. PAIN IMPROVED IN ED. TROPONIN NEGATIVE. DR ABRAHAM SAW PATIENT IN ED. ADMIT HOSPITALIST. CRITICAL CARE TIME LESS THAN 30 MINUTES. - Diagnoses Provider Diagnoses: Chest pain, Epigastric pain - Provider Notifications Discussed Care Of Patient With: Jr Abraham Time Discussed With Above Provider: 13:18 Instructed by Provider To: Other - No significant change in EKG since June. Administer medication for GI issues, administer Heparin, and repeat EKG. Discharge - Discharge Plan Condition: Stable Disposition: ADMITTED TO [facility] Consult Consult: [address] Abraham, who recommends admission. [address] Parsons ([facility] hospitalist), who admitted the patient. The documentation as recorded by the Shahram samson Jason accurately reflects the service I personally performed and the decisions made by me, Jose Martinez MD.
[2017-08-26] MEDS ORDERED: Warfarin TAB(*) 5 MG PO SCH (17:00)
[2017-08-26] MEDS ORDERED: Losartan TAB* 25 MG PO SCH (18:00)
[2017-08-26] MEDS ORDERED: CMC: Rosuvastatin (NF) 20 MG TAB PO SCH (18:00)
[2017-08-26] MEDS: Famotidine TAB* 20 MG PO SCH (21:00)
[2017-08-26] MEDS ORDERED: Carvedilol TAB* 6.25 MG PO SCH ×2 (21:00→21:06)
--- NOTE | 2017-08-26 22:42 | HP ---
CC: Jr Abraham MD; Ministerio Winters MD * HISTORY AND PHYSICAL: DATE OF ADMISSION: 08/26/17 PRIMARY CARE PROVIDER: Ministerio Winters MD PRIMARY [employer]OBBIN LOOSE END FINDER: Jr Abraham MD ATTENDING PHYSICIAN: Enriqueta Mckeon DO * (dictated by Nicole Cook NP). CHIEF COMPLAINT: Chest pressure. HISTORY OF PRESENT ILLNESS: Mr. Ordonez is a 72-year-old male with past medical history significant for coronary artery disease, status post NV x3; history of CVA; paroxysmal atrial fibrillation; hypertension; ischemic cardiomyopathy; hyperlipidemia; history of apical thrombus; and sleep apnea, who presented to the emergency room after developing a chest discomfort that did not go away this morning. According to the patient, he was in his usual state of health this morning when he got up and had 2 cups of coffee. Shortly after drinking the 2 cups of coffee, he noticed what he described to be as a gas discomfort in his epigastric area. He was able to burp a few times. He went about his day, ate breakfast. He noticed that he was just not feeling right and he had noticed that he developed a discomfort that had radiated from his epigastric area up his sternum. He describes this as a chest pressure and then he said it radiated across to his breasts, it did not radiate to his arms. He also has associated diaphoresis at that time. He denies any fever or chills, shortness of breath, nausea or vomiting, lightheadedness. The patient took a nitro and had a little bit of relief. When the pain persisted, he had also tried to drink some water, which occasionally helps when he has this discomfort, it did not help. The patient's called EMS. EMS administered 324 mg of aspirin and nitro. The patient had more improvement in his chest discomfort. While in the emergency room, the patient was given GI cocktail, morphine, nitro , and Protonix and his pain resolved. He had a chest x-ray showing no active cardiopulmonary disease. He had 2 EKGs showing sinus lyle with rates in the 50s. He was noted to have ST depression in leads V5 to 6 in addition to T-wave inversions in V4 and flat T-waves in V5 to 6 and AVL. The patient had nondiagnostic ST-T changes. All of these EKG changes are consistent with previous EKG compared to 07/13/17. The patient had labs with initial troponin of 0.02, D-dimer of less than 200. His other labs were fairly unremarkable. Dr. Abraham saw the patient in consultation while in the emergency room. The patient was currently chest pain free when assessed in the emergency room for admission. Due to the patient's cardiac history, it was felt that the patient should be monitored overnight and have a stress test tomorrow, so the hospitalists were asked to evaluate the patient for admission. PAST MEDICAL HISTORY: 1. Coronary artery disease, status post myocardial infarction x3. 2. Cerebrovascular accident. 3. Paroxysmal atrial fibrillation. 4. Hypertension. 5. Ischemic cardiomyopathy. 6. Diverticulitis. 7. Hyperlipidemia. 8. History of apical thrombus. 9. History of TIA. 10. History of patent foramen ovale. 11. Sleep apnea. PAST SURGICAL HISTORY: 1. Status post bilateral carpal tunnel release. 2. Status post ICD placement. 3. Status post atrial septal defect closure. 4. Status post LAD stenting in 1996 and 1998. 5. Status post bilateral total knee replacements. HOME MEDICATIONS: Include: 1. Warfarin 5 mg oral daily on Sunday, Sunday, Sunday, , Sunday, Sunday. 2. Warfarin 6 mg on Mondays. 3. Rosuvastatin 10 mg oral every evening. 4. Nitroglycerin 0.4 mg sublingual as needed for chest pain. 5. Zofran 4 mg oral every 8 hours as needed for nausea. 6. Irbesartan 150 mg oral every evening. 7. Carvedilol 12.5 mg oral twice daily. 8. Aspirin 81 mg oral every morning. 9. Amlodipine 2.5 mg oral twice daily. 10. Ranitidine 150 mg oral twice daily. 11. Centrum Silver 1 tablet oral daily. 12. Fish oil 1000 mg oral daily. ALLERGIES: METRONIDAZOLE caused anaphylactic reaction; OXYCODONE caused hallucinations, ATORVASTATIN caused muscle aches; NIACIN caused a rash. Due to the patient's PERCOCET allergy, ACETAMINOPHEN is listed as an allergy. The patient is unsure if he has had a reaction as he has never taken ACETAMINOPHEN alone to his knowledge. FAMILY HISTORY: The patient's mother had a heart valve replacement. The patient's father had a history of coronary artery disease and passed from a myocardial infarction at age 58. The patient denies any family history of diabetes mellitus or cancer. SOCIAL HISTORY: The patient had a brief stint of smoking at age 19 and currently does not smoke. He drinks 0 to 2 beers daily. The patient denies recreational drug use. He lives with his and his , Austin Ordonez. Austin Ordonez is his surrogate decision maker in the event he is unable to make decisions for himself. REVIEW OF SYSTEMS: I performed a 14-point review of systems. All the pertinent positives and negatives are mentioned in the history of present illness. The patient denies any backaches, radiation of pain to his hands or tingling in his hands. Although the patient reported no shortness of breath during this episode, the patient reports that at baseline if he walks quickly, he develops shortness of breath. The remaining review of systems are negative. PHYSICAL EXAMINATION GENERAL APPEARANCE: The patient is alert, pleasant, appears to be in no acute distress. VITAL SIGNS: Temperature 97.7, heart rate 60, respiratory rate 18, O2 sat 96% on 2 L via nasal cannula, blood pressure 127/88. HEENT: Normocephalic, atraumatic. Pupils are equal and reactive to light. Extraocular movements are intact. RESPIRATORY: There is no accessory muscle use and lungs are clear to auscultation bilaterally. CARDIOVASCULAR: Regular rate and rhythm. S1, S2 present. There are no murmurs , rubs, or gallops heard. ABDOMEN: Soft, nontender, nondistended. There are bowel sounds present x4. EXTREMITIES: There is no lower extremity edema. DP and PT pulses are 2+ and symmetric. MUSCULOSKELETAL: There is no clubbing or cyanosis noted. The patient exhibits good strength in all extremities. NEUROLOGICAL: The patient is alert and oriented x4. Cranial nerves II through XII are grossly intact. PSYCHOLOGICAL: The patient is calm and cooperative. SKIN: There are no rashes or abnormalities seen. The patient is noted to be flush across his cheeks and nose. DIAGNOSTIC STUDIES/LABORATORY DATA: Sodium 132, potassium 4.4, chloride 104, CO2 23, BUN 16, creatinine 0.96, glucose 103. White blood cell count 7.6, hemoglobin 13.5, hematocrit 39, and platelet count 214,000. INR 2.12, D-dimer less than 200 and troponin 0.02. EKG from 1300 shows a sinus lyle with a rate of 57. He had a repeat EKG at 1418 also showing a sinus lyle and a rate of 56. Both EKGs have ST depression in leads V5 to 6 in addition to T-wave inversion in V4 and flat T-waves in V5 to 6 and aVL. The patient appears to be early repolarization in leads V1 to 3. These EKGs are very similar to previous EKG from 07/13/17. Chest x-ray from today. Radiologist impression: No active cardiopulmonary disease. IMPRESSION: Mr. Ordonez is a 72-year-old male with past medical history significant for coronary artery disease, status post 3 myocardial infarctions and cardiac stenting; cerebrovascular accident; paroxysmal atrial fibrillation; hypertension, ischemic cardiomyopathy, hyperlipidemia, history of apical thrombus, history of patent foramen ovale and sleep apnea who presented to the emergency room with complaints of chest pressure and discomfort that started as epigastric pain and radiated to sternal pain. He will be admitted as an observation for chest pain. ASSESSMENT/PLAN: 1. Chest pain. The patient will be monitored on telemetry, we will trend his troponins. He does not have EKG changes when compared to his previous EKG. We will check an EKG in the morning. We will also get a nuclear stress test in the morning in addition to an echocardiogram to evaluate the patient's EF. He was last cathed in 2007 and his last EF was approximately 25% to 30%. I suspect some of the patient's discomfort can be gastroesophageal reflux disease symptoms as this occurred after he had coffee this morning, and he is taking ranitidine currently. I recommend if he continues to have this discomfort, he may benefit from an outpatient GI consult. Dr. Abraham has consulted on the patient. CHIDI score is 3. We will check fasting lipids in the morning. 2. History of coronary artery disease. The patient will be continued on his home aspirin and statin. Continue the patient's home carvedilol. 3. History of cerebrovascular accident. The patient will be continued on his home aspirin and statin. 4. History of paroxysmal atrial fibrillation. The patient is on carvedilol. The patient is anticoagulated with warfarin and his INR is therapeutic. 5. History of hypertension. The patient will be continued on his home carvedilol, amlodipine, and irbesartan. 6. Fluids, electrolytes, and nutrition. The patient will be on heart healthy diet. 7. Code status. Full code. 8. DVT prophylaxis. The patient is at high risk and will be continued on his home warfarin. 9. Disposition. Observation. TIME SPENT: Time for this admission was approximately 60 minutes, greater than half of that was spent with the patient and his discussing medications, past medical history and the events leading up to his arrival today, performing a physical examination. The case has been reviewed with the attending, Dr. Mckeon, who agrees with the plan of care. Reviewed by DAMIAN MARLEY 08/29/17 1313 [id number]/[facility] #: [id number]
[2017-08-27] MEDS: NS 0.9% 1000 ML* 1,000 ML IV SCH
--- NOTE | 2017-08-27 00:04 | CONS ---
CC: Dr. Winters; Jr Abraham MD CARDIOLOGY CONSULTATION: DATE OF CONSULT: 08/26/17 REASON FOR EVALUATION: Chest pain. HISTORY OF PRESENT ILLNESS: This is a very pleasant 72-year-old gentleman with a history of coronary disease, ischemic cardiomyopathy, who was in his usual state of health until this morning about 8 o'clock he had 2 cups of coffee and then developed epigastric discomfort, which radiated to his chest and to both sides. He said he was a little sweaty with it, not short of breath. He said there was some gas with it. He tried drinking water and eating and there was no improvement. Typically in the past, these symptoms have improved with eating or drinking water. He took a nitro with some partial relief. His symptoms persisted, so he called the EMT's at about 12:30 and got to the ER around 1 o' clock. Here, he received additional nitro in the ambulance and 4 baby aspirin. In the emergency room, he still was having some pain, but it improved. He was given a GI cocktail as well as IV Protonix and currently is pain free. He had an EKG consistent with old anterior septal DE and nonspecific lateral ST-T changes, but similar to his previous of June of last year. He denies any diarrhea, fever, chills, sweats, cough. No orthopnea. No peripheral edema. He rides a stationary bike for 20 minutes most days. He said that if he tries to walk quickly, he gets short of breath and that has been longstanding. PAST MEDICAL HISTORY: Includes coronary artery disease with DE in 1996 and LAD stent. He had a repeat cath and stent in LAD in approximately 1998. A re-cath in 2000, stent was patent. Cath in November 2003, LAD 25% and the stent mid 50 , distal 60 to 70, OM branch was large 60% to 70%, dominant circ with a proximal 60% to 70%, EF of 25% similar to 2000. He had a cath in August [address] Colunga, the OM1 was 60%, RCA was non-obstructive, the 40% LAD was patent. EF of 25%. He had apical thrombus in September 2013, started on Coumadin. He had a TIA in December 2003. DONAL revealed PFO and he had a left internal carotid that was less than 40%. He was treated with anticoagulation. He discontinued anticoagulation in February 2010 at his wishes. In December 2010, he had a CVA with impaired speech and comprehension. In January 2011, he had an Amplatzer occlusion device over his atrial septum and was started on Plavix. He developed AFib in 2000 detected on his ICD and he declined anticoagulation. He has a history of hypertension. He declined hypertension at that time. Sleep apnea, hyperlipidemia. PAST SURGICAL HISTORY: Includes ICD placed in September 2008 for primary intervention. He had an infected pocket hematoma, leads were extracted in September 2009; new unit was placed on the right. In October 2009, he had chest pain, hemopericardium, transferred to [facility] with suspected RV beat perforation. In October 2009, he had pericardial drainage and lead revision , a percutaneous ASD repair with an Amplatzer device in January 2011. Right total knee replacement in 2012, ICD replaced in March [address] [employer] model. Knee surgery in May 2014, left knee replacement. In January 2016, he had pharmacologic stress test, revealed dilated LV with infarct anterior, anterior apical, inferior apical with no ischemic changes. EF was 34%. MEDICATIONS: Include: 1. Crestor 10 mg a day. 2. Centrum. 3. Carvedilol 12.5 mg b.i.d. 4. Aspirin 81 mg a day. 5. Amlodipine 2.5 mg twice a day. 6. Fish oil 1000 mg a day. 7. Irbesartan 150 mg a day. 8. Ranitidine 75 mg twice a day. 9. Warfarin as directed. 10. Nitrostat on p.r.n. ALLERGIES: Include LIPITOR, myalgias; NIASPAN, OXYCODONE, ULTRACET, PERCOCET and in June he got clindamycin and had a serious reaction. SOCIAL HISTORY: He smoked a few years when he was 19. He drinks 2 beers a day. He has 2 cups of coffee a day. He exercised on a stationary bike for 20 minutes most days. He is , accompanied by his . He had 3 children, 2 are . He has 1 child who is alive. ROS; neg x 10 except as above. PHYSICAL EXAM: General: He is a well-developed, well-nourished gentleman, in no apparent distress. Pulse is 59, blood pressure 121/80, O2 sat is 98%. Atraumatic, normocephalic. Extraocular muscles are intact. Sclerae anicteric. No significant JVD. Carotids 2+ without bruits. No cervical lymphadenopathy or thyromegaly. Cardiac Exam: S1, S2, with a soft 1/6 holosystolic murmur at the left lower sternal border apex. Chest was clear. No CVAT. Abdomen: Bowel sounds are present, nontender. Femoral pulses are intact with no bruits. Distal pulses intact. No edema. Motor strength 5/5 bilaterally. Deep tendon reflexes 2/4. Skin turgor normal. DIAGNOSTIC STUDIES/LAB DATA: Include sodium 134, potassium of 4.4, BUN of 16, creatinine of 0.9, troponin 0.02, BNP of 103, CRP of 1.28. Cholesterol in March was 145. TSH is pending. White count 7.6, hemoglobin 13.5, hematocrit of 39, MCV of 91. Chest x-ray revealed no active cardiopulmonary disease and EKG from 1300 revealed sinus rhythm with lateral ST-T changes, anterior septal DE and his repeat EKG from 1418 was similar. His EKGs are similar, he had one on 07/13/17 , it was similar. IMPRESSION: My impression is that Mr. Ordonez had an episode of chest discomfort prolonged without significant troponin elevation and no diagnostic EKG changes. Certainly, he is at risk for progression and recurrence of his coronary disease. He did respond to nitro. Other possibilities include gastroesophageal reflux and biliary colic and vasomotor dysfunction. For the time being, I would recommend the followin. I strongly recommend that he decrease his intake of coffee and alcohol in case it was contributing to GI upset. 2. He is to be admitted and follow serial troponins and EKGs. I would suggest obtaining a pharmacologic stress test given his exercise intolerance and an echo tomorrow. 3. We would continue anticoagulation given his history of apical thrombus, paroxysmal atrial fibrillation and transient ischemic attack. 4. Consider obtaining thiamine, B12, folic acid given his mildly elevated MCV and alcohol history. discussed with Elena Steinberg NP. [id number]/[facility] #: [id number] YURI
[2017-08-27 06:59] LABS: HDL Cholesterol 38.4 mg/dL
[2017-08-27] MEDS ORDERED: amLODIPine TAB* 5 MG PO SCH (09:00)
[2017-08-27] MEDS ORDERED: Aspirin EC Low Dose* 81 MG TAB.EC PO SCH (09:00)
[2017-08-27 09:10] LABS: Folate > 20.00 ng/mL (>3.99)
[2017-08-27 09:11] LABS: Vitamin B12 353 pg/mL (180-914)
[2017-08-27] MEDS: Famotidine TAB* 20 MG PO SCH (09:52)
--- NOTE | 2017-08-27 10:28 | RAD ---
Edited for charges. INDICATION: Chest pain. COMPARISON: Comparison is made with a prior myocardial perfusion stress study from October 04, 2013. Technique: A single day myocardial perfusion stress study was performed. Initially the resting study was performed. The patient was given an intravenous injection of 11.0 mCi of technetium 99m tetrofosmin and and the heart was imaged in multiple projections. The patient returned later in the day and under the direction of Dr. Harrison, the patient was given intervenous injection of Lexiscan. Subsequently the patient was given intravenous injection of 25.5 mCi of technetium 99m tetrofosmin and the heart was imaged in multiple projections. Images were reconstructed in the axial, sagittal and coronal planes and in a 3- D format. FINDINGS: There is akinesis at the cardiac apex and otherwise a global hypokinesis. The left ventricular ejection fraction is calculated to be 34% which is similar to the prior study at that time it was 31%. Review of the images demonstrates a large defect centered in the cardiac apex with extension into the anterior, inferior and septal sorensen which appears slightly more prominent than on the prior exam. The defect is mainly fixed with very mild decrease in size on the resting portion of the study consistent with a large infarct with mild vineet-infarct ischemia. IMPRESSION: 1. LARGE INFARCT DESCRIBED WITH MILD VINEET-INFARCT ISCHEMIA. THE INFARCT IS SLIGHTLY LARGER THAN ON THE PRIOR STUDY. 2. LEFT VENTRICULAR EJECTION FRACTION OF 34% SIMILAR TO THE PRIOR EXAM. ASSESSMENT: High risk. Based on imaging criteria from ACC/AHA 2002 Guideline Update for the Management of Patients With Chronic Stable Angina Table 23. Noninvasive Risk Stratification. MTDD
[2017-08-27 10:41] LABS: Urine Bilirubin Negative (Negative); Urine Glucose Negative (Negative); Urine Nitrite Negative (Negative)
[2017-08-27] MEDS ORDERED: Regadenoson* 0.4 MG/5 ML SYRINGE ONE (13:02)
[2017-08-27 15:51] VITALS: BP 135/89
--- NOTE | 2017-08-27 16:24 | ECHO ---
Patient: DELLA SAXENA [facility] Rec#: [id number] : 1945 Date: 08/27/2017 Age: 72y Height: 177.8 cm / 70.0 in Weight: 90.72 kg / 199.9 lbs Sex: M BSA: 2.09 Room#: [facility] Admit Date#: 08/26/2017 Type: Inpatient Referring: Jr Abraham MD Reading: Oli Cornejo MD Boat Joiner: Nicole SolitarioTARIK CC: Ministerio Winters MD Transthoracic Echocardiogram Indication: Chest Pain BP: 122/70 HR: 52 Rhythm: Paced Findings History: CAD, ischemic cardiomyopathy, old NH, s/p PCI stent of LAD, s/p AICD, remote smoker, / systolic murmur. Technical Comments: The study quality is fair. The study is technically limited due to the patient's smoking history. Completed at 1515. Left Ventricle: The left ventricular chamber size is mildly dilated. Mild concentric left ventricular hypertrophy is observed. Severe global hypokinesis of the left ventricle is observed. There is severely decreased left ventricular systolic function. The estimated ejection fraction is 25-30%. There is no consistent Doppler evidence of clinically significant diastolic dysfunction. Left Atrium: The left atrium is severely dilated. Right Ventricle: The right ventricle is mildly dilated. The right ventricular global systolic function is low normal. The septum has abnormal paradoxical motion consistent with RV pacemaker. A pacemaker wire is visualized in the right ventricle. Right Atrium: The right atrium is moderate to severely dilated. A pacemaker wire is visualized in the right atrium. Aortic Valve: The aortic valve is trileaflet. The aortic valve leaflets are mildly thickened. There is evidence of aortic sclerosis without stenosis. There is a trace of aortic regurgitation. There is no evidence of aortic stenosis. Mitral Valve: There is mitral annular calcification. The mitral valve leaflets are mildly thickened. There is mild mitral regurgitation. There is no evidence of mitral stenosis. Tricuspid Valve: The tricuspid valve leaflets are mildly thickened. There is mild to moderate tricuspid regurgitation. The right ventricular systolic pressure is estimated at 40 mmHg. There is evidence of mild pulmonary hypertension. There is no tricuspid stenosis. Pulmonic Valve: The pulmonic valve appears normal. There is a trace pulmonic regurgitation. There is no pulmonic stenosis. Pericardium: There is no significant pericardial effusion. Aorta: There is mild dilatation of the ascending aorta. There is no dilatation of the aortic arch. There is mild dilatation of the aortic root. Pulmonary Artery: The main pulmonary artery appears normal. Venous: The inferior vena cava is dilated. There is an approximate 50% respiratory change in the inferior vena cava dimension. Summary: There are no significant changes when compared to the previous study done on 02/16/17 Conclusions Mild concentric left ventricular hypertrophy is observed. Severe global hypokinesis of the left ventricle is observed. The estimated ejection fraction is 25-30%. There is no consistent Doppler evidence of clinically significant diastolic dysfunction. The right ventricular global systolic function is low normal. There is evidence of aortic sclerosis without stenosis. There is a trace of aortic regurgitation. There is mild mitral regurgitation. There is mild to moderate tricuspid regurgitation. The right ventricular systolic pressure is estimated at 40 mmHg. There is no significant pericardial effusion. There are no significant changes when compared to the previous study done on 02/17/16 Measurements Name Value Normal Range RVIDd (AP) 2D 3.4 cm (0.9 - 2.6) RVDdMajor (2D) 4.6 cm (2.2 - 4.4) RAd ISD 4CH 5.9 cm (3.4 - 4.9) RA (A4C)W 5.4 cm (2.9 - 4.6) IVSd (2D) 1.2 cm (0.6 - 1) LVPWd (2D) 1.1 cm (0.6 - 1) LVIDd (2D) 5.7 cm (3.6 - 5.4) LVIDs (2D) 4.2 cm - LV FS (2D) 26 % (25 - 45) Aortic Annulus 2.3 cm (1.4 - 2.6) Ao root diameter (2D) 3.6 cm (2.1 - 3.5) Ascending Ao 3.9 cm (2.1 - 3.4) Aortic arch 3.1 cm (1.8 - 3.4) LA dimension (AP) 2D 4.8 cm (2.3 - 3.8) LAd ISD 4CH 6.5 cm (2.9 - 5.3) LA ISD 4CH W 5.1 cm (2.5 - 4.5) Name Value Normal Range LA ESV SP 4CH (A/L) 117 ml - LA ESV SP 2CH (A/L) 127 ml - LA ESV BP (A/L) 128 ml - LA ESV BP (A/L) index 61.42 ml/m2 - LA ESV SP 4CH (MOD) 109 ml - LA ESV SP 2CH (MOD) 123 ml - Name Value Normal Range MV E-wave Vmax 1 m/sec - MV deceleration time 208 msec - MV A-wave Vmax 0.4 m/sec - MV E:A ratio 2.13 ratio - LV septal e' Vmax 0.04 m/sec - LV lateral e' Vmax 0.1 m/sec - LV E:e' septal ratio 23.75 ratio - LV E:e' lateral ratio 9.5 ratio - Name Value Normal Range AV Vmax 1.5 m/sec - AV VTI 40 cm - AV peak gradient 9.33 mmHg - AV mean gradient 4.63 mmHg - LVOT Vmax 1 m/sec - LVOT VTI 24.45 cm - LVOT peak gradient 4.06 mmHg - LVOT mean gradient 2.4 mmHg - STEVIE Vmax 0.55 m/sec - Name Value Normal Range TR Vmax 25 m/sec - TR peak gradient 25 mmHg - RAP 15 mmHg - RVSP 40 mmHg - IVC diameter 2.2 cm - Name Value Normal Range PV Vmax 0.7 m/sec - PV peak gradient 1.73 mmHg -
[2017-08-27] MEDS ORDERED: Warfarin TAB(*) 6 MG PO SCH (17:00)
--- NOTE | 2017-08-28 06:52 | DS ---
CC: Dr. Ministerio Winters; Dr. Abraham * DISCHARGE SUMMARY: DATE OF ADMISSION: 08/26/17. DATE OF DISCHARGE: 08/27/17. PRIMARY CARE PROVIDER: Dr. Ministerio Winters. PRIMARY JAVA SPRING DEVELOPER: Dr. Abraham. DISCHARGING PROVIDER: ALBAN Arriaza. SUPERVISING PHYSICIAN: Dr. Latha Santos * (DICTATED BY ALBAN ARRIAZA) PRIMARY DISCHARGE DIAGNOSIS: Chest pain - no evidence of acute coronary syndrome, unclear if this was cardiac versus GI, but it seems more likely to be GI in nature. SECONDARY DISCHARGE DIAGNOSES: 1. Chronic systolic heart failure secondary to ischemic cardiomyopathy with an EF of 25% to 30%. 2. Coronary artery disease. 3. History of cerebrovascular accident. 4. Paroxysmal atrial fibrillation, anticoagulated on Coumadin with a therapeutic INR. 5. Hypertension. 6. Hyperlipidemia. 7. History of apical thrombus, again anticoagulated on Coumadin. 8. Obstructive sleep apnea. DISCHARGE MEDICATIONS: 1. Amlodipine 2.5 mg p.o. daily. 2. Aspirin 81 mg p.o. daily. 3. Carvedilol 12.5 mg p.o. twice daily. 4. Irbesartan 150 mg p.o. daily. 5. Isosorbide mononitrate 30 mg p.o. daily. 6. Multivitamin 1 tablet p.o. daily. 7. Nitro 0.4 mg sublingual as needed for chest pain. 8. Novi-3 fatty acids 1000 mg p.o. daily. 9. Omeprazole 20 mg p.o. twice daily. 10. Crestor 20 mg p.o. daily. 11. Coumadin 5 mg daily with the exception of Sunday where he takes 6 mg. MEDICATION CHANGES: 1. Start omeprazole. 2. Stop ranitidine. 3. Start Imdur. HOSPITAL IMAGIN. Chest x-ray shows no acute process. 2. Nuclear stress test shows a large infarct with mild isai-infarct ischemia perhaps slightly larger than prior studies, LVEF 35% similar to prior to exam with exercise. 3. Transthoracic echocardiogram shows a left ventricular ejection fraction of 25% to 30%. No evidence of diastolic dysfunction, he has mild LVH. No significant valvular disease. When compared to last echo from January 2016, this is essentially unchanged. HOSPITAL COURSE: This is a 72-year-old gentleman with a history of severe ischemic cardiomyopathy prior CVA, paroxysmal AFib, hypertension, hyperlipidemia , and obstructive sleep apnea, who presented to the emergency department with complaints of chest pain. The patient states that his pain started as epigastric discomfort and then radiated into his chest. He has had similar symptoms intermittently for several months and has even had a prior endoscopy procedure which was unrevealing. He has had prior cardiac workups with Dr. Abraham, which did not show any evidence of new ischemia. He is currently on a H2 estephania without improvement in his symptoms. He came to the emergency department yesterday because the pain seems somewhat different and more severe and concentrated in his chest than what was usual for him, and he does have a significant cardiac history, which prompted him to be evaluated in the emergency department. When patient arrived he had normal labs including a CBC. There was an unremarkable D-dimer that is negative. INR therapeutic at 2.1. Comprehensive metabolic panel remarkable only for mildly depressed sodium of 132 mmol/L, glucose 103, troponin negative at 0.02. Inflammatory markers negative. TSH normal. Due to the patient's extensive cardiac history he was subsequently admitted for a period of observation with recommendations for repeat stress test and echocardiogram per his maintenance and custodian supervisor Dr. Abraham. The patient reported that he remained asymptomatic throughout his hospital stay. Repeat troponins remained negative. No changes on EKG. He underwent a nuclear stress test which did show a large infarct, but similar to prior with only a small area of isai-infarct ischemia. His echocardiogram was similar to prior. Due to patient's description of symptoms, they certainly sound GI in origin, but he does have a rather large areas of poor cardiac perfusion with a small area of isai- infarct ischemia and this pain could be cardiac in origin. Discussed treatment options with patient in detail and he elected to initiate a PPI as well as antianginal medication. In the event if the symptoms improve, would first discontinue his antianginal medication to see if it recurs after several weeks. DISPOSITION AND FOLLOWUP PLAN: The patient is being discharged to home. New medications include Imdur and omeprazole, as described above. He requires followup with his primary care provider and maintenance and custodian supervisor regarding this hospitalization, review of symptoms as they respond to changes in medical regimen. ALBAN ARRIAZA [id number]/[facility] #: [id number] [facility] MEDICAL CENTERMerlene
== END 2017-08-27 16:30 | disposition home or self-care (01) ==
LOC: ED 12:55 → MEDTELE 14:05
PROVIDERS: ADMIT Hospitalist; ATTEND Hospitalist
DX: R07.9 Chest pain, unspecified (principal); I11.0 Hypertensive heart disease with heart failure; I50.22 Chronic systolic (congestive) heart failure; I25.10 Atherosclerotic heart disease of native coronary artery without angina pectoris; I48.0 Paroxysmal atrial fibrillation; Z79.01 Long term (current) use of anticoagulants; E78.5 Hyperlipidemia, unspecified; G47.33 Obstructive sleep apnea (adult) (pediatric); Z86.73 Personal history of transient ischemic attack (TIA), and cerebral infarction without residual deficits; Z79.899 Other long term (current) drug therapy; Z88.8 Allergy status to other drugs, medicaments and biological substances; R94.31 Abnormal electrocardiogram [ECG] [EKG]; I51.7 Cardiomegaly
CPT/HCPCS: 36415; 71010; 78452; 80053; 80061; 81003; 82550; 82553; 82607; 82746; 83605; 83690; 83735; 83874; 83880; 84443; 84484; 85025; 85379; 85610; 85730; 86140; 93005; 93017; 93306; 96361; 96374; 96375; 99284; A9270-GY; A9502; G0378; J1644; J2270; J2405; J2785

== ENCOUNTER 2018-02-24 11:52 | Inpatient (IN) | payer MEDICARE, OTHER ==
[2018-02-24] MEDS ORDERED: Morphine INJ* 10 MG/ML 1 ML CARPUJECT ONE (13:31)
[2018-02-24] MEDS ORDERED: Morphine VIAL* 4 MG/ML VIAL (1 ml vial) IV ONE (13:34)
[2018-02-24 14:24] LABS: Hematocrit 36 % (42-52); Hemoglobin 12.5 g/dl (14.0-18.0); Mean Corpuscular HGB Conc 34 g/dl (31-36); Mean Corpuscular Hemoglobin 31 pg (27-31); Mean Corpuscular Volume 89 fL (80-94); Mean Platelet Volume 6.9 um3 (7.4-10.4); Platelet Count 330 10^3/ul (150-450); Red Blood Count 4.08 10^6/ul (4.0-5.4); Red Cell Distribution Width 13 % (10.5-15); White Blood Count 10.9 10^3/ul (3.5-10.8)
[2018-02-24 14:32] LABS: INR 2.49 (0.77-1.02)
[2018-02-24 14:45] LABS: EGFR Non-African American 76.5 (>60)
[2018-02-24] MEDS ORDERED: HYDROcodone/ACETAMIN 5-325 MG* 1 TAB PO ONE (14:47)
--- NOTE | 2018-02-24 16:07 | RAD ---
Indication: Severe RIGHT shoulder pain without proceeding injury. Comparison: No relevant prior exams available on the [facility] PACS for comparison. Technique: AP and scapular Y views RIGHT shoulder. Report: Obliquity on the scapular Y-view limits assessment. Negative for AC joint separation or glenohumeral joint dislocation. Bone density appears decreased. No fracture evident. Mild AC joint osteophytosis. Mild superior subluxation of the humeral head relative to the glenoid and reactive sclerosis and cystic change at the greater tuberosity is consistent with presence of rotator cuff pathology. Small focus of calcific tendinopathy which may involve the supraspinatus or infraspinatus tendons. Unremarkable soft tissue contours. IMPRESSION: Osteoarthritis, stigmata of chronic rotator cuff pathology, and calcific tendinopathy.
--- NOTE | 2018-02-24 16:13 | RAD ---
INDICATION: Severe RIGHT elbow pain and limited range of motion without reported injury. COMPARISON: No relevant prior exams available on the [facility] [place] for comparison. TECHNIQUE: AP, lateral, and oblique views RIGHT elbow. AP and lateral views RIGHT forearm REPORT: While obliquity limits assessment there is suggestion of anterior fat pad displacement at the elbow consistent with joint effusion. Normal articular alignment. No fracture evident about the elbow or forearm. Polyarticular osteoarthritis moderately severe with associated subchondral cystic change and sclerosis at the humeral capitellum. Severe osteophytic lipping at the radial head. Small loose bodies and/or chondrocalcinosis at the peripheral margin of the humeral radial articulation. Additionally there is suggestion of small loose bodies at the dorsal margin of the humeral ulnar articulation. Nonfocal soft tissue swelling. No conspicuous foreign body or subcutaneous emphysema. IMPRESSION: Osteoarthritis. Associated elbow joint effusion and loose bodies. Negative for fracture at the elbow or forearm.
--- NOTE | 2018-02-24 16:13 | RAD ---
INDICATION: Severe RIGHT elbow pain and limited range of motion without reported injury. COMPARISON: No relevant prior exams available on the [facility] PACS for comparison. TECHNIQUE: AP, lateral, and oblique views RIGHT elbow. AP and lateral views RIGHT forearm REPORT: While obliquity limits assessment there is suggestion of anterior fat pad displacement at the elbow consistent with joint effusion. Normal articular alignment. No fracture evident about the elbow or forearm. Polyarticular osteoarthritis moderately severe with associated subchondral cystic change and sclerosis at the humeral capitellum. Severe osteophytic lipping at the radial head. Small loose bodies and/or chondrocalcinosis at the peripheral margin of the humeral radial articulation. Additionally there is suggestion of small loose bodies at the dorsal margin of the humeral ulnar articulation. Nonfocal soft tissue swelling. No conspicuous foreign body or subcutaneous emphysema. IMPRESSION: Osteoarthritis. Associated elbow joint effusion and loose bodies. Negative for fracture at the elbow or forearm.
[2018-02-24 16:37] LABS: Uric Acid 3.7 mg/dL (4.4-7.6)
[2018-02-24] MEDS ORDERED: Vancomycin(*) 1,250 MG in NS 0.9% 250 ML* 250 ML IVPB ONE (19:23)
[2018-02-24] MEDS ORDERED: Lidocaine 1% INJ* 10 MG/ML 30 ML SDV ONE (19:38)
[2018-02-24] MEDS ORDERED: Acetaminophen TAB* 325 MG PO PRN (19:45)
[2018-02-24] MEDS ORDERED: NS 0.9% 1000 ML* 1,000 ML IV SCH (19:45)
--- NOTE | 2018-02-24 20:52 | CONS ---
CONSULTATION REPORT: DATE OF CONSULT: 02/24/18 CHIEF COMPLAINT: Right arm pain. HISTORY OF PRESENT ILLNESS: Raghavendra is 72 years old. He has 2 weeks of right arm pain. Pain is worse with activity. It is relieved by not moving the arm. Initially, it started more up in the shoulder area and more recently it has moved down towards the elbow. It is become more difficult for him to use the arm. He has never had anything like this before. He denies any fevers or constitutional symptoms. The pain became so severe over the last couple of days and was not responding to Tylenol and he came in for evaluation. PAST MEDICAL HISTORY: Significant for coronary artery disease. He does have a stent. He has had a CVA in the past, which has left him with slight impaired speech and comprehension. He has AFib, he has an ICD in place. He also has a history of hypertension, sleep apnea, and hyperlipidemia. PAST SURGICAL HISTORY: ICD placement, September 2008, which became infected and was extracted and he had the ICD most recently replaced in March 2014. He has had a left total knee replacement. He has had what looks like carpal tunnel surgery. MEDICATIONS: 1. Crestor. 2. Carvedilol. 3. Aspirin. 4. Amlodipine. 5. Fish oil. 6. Irbesartan. 7. Ranitidine. 8. Nitrostat. FAMILY HISTORY: He is not able to recall if family history is significant for gout or other inflammatory arthritis. SOCIAL HISTORY: He lives with his spouse. He does not smoke. REVIEW OF SYSTEMS: Full 14-point review of systems was conducted and it is negative except for the right arm pain mentioned above. He denies neck pain. Denies any neurological symptoms. PHYSICAL EXAM: General: Awake and alert, very pleasant. Skin: Intact. There are no rashes or lesions or erythema. Musculoskeletal: The left arm, bilateral lower extremity exam is unremarkable. The right wrist and hand move well without much pain. There are no focal masses that are palpable. The right shoulder moves reasonably well with minimal pain. The right elbow is quite painful with any movement. I cannot get him to passively flex it about through an 80-degree motion arc. Pronation and supination are full with minimal pain. There is not a lot of joint line tenderness. The upper arm and forearm exams were unremarkable. DIAGNOSTIC STUDIES/LAB DATA: Imaging: X-rays of the right shoulder show some degenerative changes, some calcific tendinitis, but otherwise negative. X-rays of the right elbow show arthritis and significant chondrocalcinosis consistent with pseudogout. Forearm x-rays were unremarkable. The visualized wrist was unremarkable. IMPRESSION: Right elbow pain for 2 weeks. I think this is most likely due to pseudogout. PLAN: I aspirated the elbow in the ER. I got 7 cc of cloudy yellow fluid. It did not look purulent, there was good string sign. We will send off for cell count, Gram stain and culture as well as crystal analysis. I did ask him to check in for fungus as well. Additionally, we will have him do the serology for Lyme disease. I think there is a low chance of this due to bacterial infection. I think it is pseudogout, potentially Lyme disease. Either way, we will treat it appropriately and assuming it is not bacterial, then I would have him follow up as an outpatient. His cell count came back as 70,000. Gram stain is negative, no crystals seen. Will do the an incision and drainage of the right elbow this morning. [id number]/[facility] #: [id number] [facility] HOSPITALMerlene
[2018-02-25] MEDS ORDERED: Vancomycin per Pharmacy* NOTE FOLLOW UP PRN (04:09)
[2018-02-25] MEDS: oxyCODONE TAB* 5 MG TAB PO PRN (04:37)
[2018-02-25] MEDS: Vancomycin(*) 1,000 MG in NS 0.9% 250 ML* 250 ML IVPB SCH ×3 (05:49→22:02)
[2018-02-25] MEDS ORDERED: Buffered Lidocaine 0.9% SYRIN* 5 ML/SYR SYRINGE ONE (06:46)
[2018-02-25] MEDS ORDERED: Lidocain 1% EPI 1:100,000 * 30 ML MDV ONE (07:10)
[2018-02-25] MEDS ORDERED: Sodium Bicarbonate 8.4% SYR* 10 ML SYRINGE ONE (07:10)
[2018-02-25] MEDS ORDERED: Bupivacaine 0.25% SDV* 30 ML ONE (07:17)
[2018-02-25] MEDS ORDERED: fentaNYL* 50 MCG/ML 2 ML VIAL (100 MCG VIAL) ONE (08:02)
[2018-02-25] MEDS ORDERED: Lidocaine 2% PF * 5 ML VIAL ONE (08:06)
[2018-02-25] MEDS ORDERED: Propofol* 10 MG/ML 20 ML BTL IV PUSH ONE (08:06)
[2018-02-25] MEDS ORDERED: Midazolam* 1 MG/ML 2 ML VIAL (2 MG) ONE (08:06)
[2018-02-25] MEDS ORDERED: fentaNYL* 50 MCG/ML 2 ML VIAL (100 MCG VIAL) IV PRN (08:37)
[2018-02-25] MEDS ORDERED: Naloxone* 0.4 MG/ML 1 ML VIAL IV PRN (08:37)
[2018-02-25] MEDS ORDERED: diPHENhydraMINE IV* 50 MG/ML 1 ml VIAL (BENADRYL) IV PRN (08:37)
[2018-02-25] MEDS ORDERED: ZOSYN 3.375 GM x ONE DOSE over 30 miuntes IVPB ×2 (09:00)
[2018-02-25] MEDS ORDERED: Magnesium Hydroxide LIQ* 30 ML UDC PO PRN (09:32)
[2018-02-25] MEDS: Losartan TAB* 25 MG PO SCH (09:35)
[2018-02-25] MEDS: CMCS: Rosuvastatin (NF) 10 MG TAB PO SCH (09:36)
[2018-02-25] MEDS: amLODIPine TAB* 5 MG PO SCH (09:37)
[2018-02-25] MEDS ORDERED: Piperacillin/Tazobac ADVAN(*) 3.375 GM in NS 0.9% 100 ML* 100 ML IVPB ONE (09:40)
[2018-02-25] MEDS: Omeprazole CAP* 20 MG PO SCH (09:41)
[2018-02-25] MEDS: Carvedilol TAB* 6.25 MG PO SCH ×2 (09:41→20:57)
[2018-02-25] MEDS ORDERED: Zosyn per Pharmacy* NOTE FOLLOW UP SCH (10:00)
--- NOTE | 2018-02-25 12:31 | OP ---
DATE OF OPERATION: 02/25/18 - ROOM #411 DATE OF : 49 SURGEON: Jovani Corona MD CRIMINAL ANALYST: ALBAN Dukes. An costumer assistant was needed for the procedure to aid in positioning of the arm and retraction. ANESTHESIOLOGIST: Francisco Enriquez MD ANESTHESIA: General. PRE-OP DIAGNOSES: 1. Infected right elbow. 2. Infected right wrist. POST-OP DIAGNOSES: 1. Infected right elbow. 2. Infected right wrist. OPERATIVE PROCEDURE: 1. Arthrotomy for incision and drainage of right elbow joint infection. 2. Arthrotomy for incision and drainage of right wrist joint infection. INDICATIONS: Raghavendra came in to the emergency room last night. I aspirated the elbow joint. The white count came back as 70,000. So, we sent him up for I and D first thing this morning. When I arrived this morning, the right wrist joint overnight had become extremely painful and swollen. I told him I would wash out the right wrist as well. There were no organisms on the Gram stain. ESTIMATED BLOOD LOSS: 2 mL. COMPLICATIONS: None. FINDINGS: Murky fluid in the elbow and to a lesser extent in the wrist. DESCRIPTION OF PROCEDURE: Raghavendra was seen in the preoperative holding area. The correct side, site, and procedure were identified. We came back to the operating room where the arm was prepped and draped in the usual fashion. A time-out was performed. I began by making a 5-cm incision over the lateral elbow. Dissection was carried out. Full-thickness flaps were raised off the retinaculum. I then made an arthrotomy through the lateral elbow, preserving the lateral ulnar collateral ligament. The anterior joint was exposed. The radiocapitellar joints were exposed. There was some murky fluid that came out. I sent cultures , aerobic, anaerobic, fungal, mycobacterial, and also sent the culture for crystal analysis. There was some tissue consistent with pseudogout crystals. I excised this and sent it for tissue examination for crystals. I then took the Cysto tubing, we irrigated out the joint copiously until there was just clear fluid coming out of the joint. I did place a Hemovac drain. The lateral elbow was then closed with 0 PDS and we turned our attention to the wrist. I made a dorsal longitudinal incision over the wrist. Dissection was carried down. The extensor retinaculum was opened over the third dorsal compartment. The septum between the third and fourth dorsal compartments was released. The tendons were retracted out of the way. Dorsal capsulotomy was made. There was again some fluid with what looked like precipitate in it. I took cultures and again some more tissue consistent with pseudogout was excised. I then irrigated the joint copiously with the Cysto tubing and saline. Once the fluid was coming back nice and clear, we closed up the extensor retinaculum with 0 PDS. Skin was closed with 4-0 nylon suture. Wounds were infiltrated with Marcaine and dressed with Xeroform, 4x4, sterile Webril, and a long-arm splint was applied. As the drapes were coming down, the Hemovac drain got pulled out. He was then woken up and taken to recovery room in stable condition. [id number]/[facility] #: [id number] MTDD
[2018-02-25] MEDS: Piperacillin/Tazobactam 13.5 GM IV 24 hour continuous infusion IVPB SCH ×2 (13:11)
[2018-02-25] MEDS: oxyCODONE/Acetamin 5/325 MG* TAB PO PRN ×2 (15:31→19:21)
[2018-02-25] MEDS: Warfarin TAB(*) 5 MG PO SCH (19:21)
[2018-02-25] MEDS: Magnesium Hydroxide LIQ* 30 ML UDC PO SCH (20:57)
[2018-02-26] MEDS ORDERED: Vancomycin Trough Check NOTE FOLLOW UP ONE (06:00)
[2018-02-26 06:05] LABS: EGFR Non-African American 84.5 (>60)
[2018-02-26 06:38] LABS: Vancomycin Trough 12.4 mcg/mL
[2018-02-26] MEDS: Vancomycin(*) 1,000 MG in NS 0.9% 250 ML* 250 ML IVPB SCH ×2 (06:47→13:21)
[2018-02-26] MEDS: Magnesium Hydroxide LIQ* 30 ML UDC PO SCH ×2 (08:40→20:42)
[2018-02-26] MEDS: Omeprazole CAP* 20 MG PO SCH (08:40)
[2018-02-26] MEDS: Carvedilol TAB* 6.25 MG PO SCH ×2 (08:41→20:42)
[2018-02-26] MEDS: Losartan TAB* 25 MG PO SCH (08:41)
[2018-02-26] MEDS: CMCS: Rosuvastatin (NF) 10 MG TAB PO SCH (08:42)
[2018-02-26] MEDS: amLODIPine TAB* 5 MG PO SCH (08:44)
[2018-02-26] MEDS: Morphine VIAL* 4 MG/ML VIAL (1 ml vial) IV PRN ×2 (08:55→16:35)
[2018-02-26 13:00] LABS: White Blood Count 7.4 10^3/ul (3.5-10.8)
[2018-02-26 13:06] LABS: INR 2.86 (0.77-1.02)
[2018-02-26] MEDS: Piperacillin/Tazobactam 13.5 GM IV 24 hour continuous infusion IVPB SCH ×2 (13:14)
[2018-02-26] MEDS: oxyCODONE TAB* 5 MG TAB PO PRN ×2 (13:16→19:51)
--- NOTE | 2018-02-26 13:32 | PN ---
Progress Note - Progress Note Date of Service: 02/26/18 SOAP: Subjective: [Pt was seen sitting up in bed this afternoon while eating lunch. He states that his right hand fingers are swollen and stiff. He states that pain is well controlled currently. He does not have any other complaints. Denies any n/v, n/t , chest pain or SOB. ] Objective: [General: alert, awake and oriented. NAD. Sitting up in bed quite comfortably and talking. MSK, RUE: Inspection reveals a splint covered in an SUSANA which is clean and dry. All digits of the right hand are moderately swollen when compared to the contralateral hand. He is able to flex and extend his digits at the MCP, PIP and DIP joints without pain. There is decreased ROM of all the digits due to the swelling. Cap refill of all digits is less than 2 seconds. Sensation to light touch is intact to all digits. ] Vital Signs Temp 97.9 F 02/26/18 07:47 Pulse 70 02/26/18 07:47 Resp 14 02/26/18 13:16 BP 133/73 02/26/18 07:47 Pulse Ox 97 02/26/18 08:00 Intake & Output 02/25/18 02/26/18 02/26/18 18:59 06:59 18:59 Intake Total 1590 1756 225 Balance 1590 1756 225 Intake: IV Fluids 600 1356 LR 600 1356 Oral 990 400 225 Other: Estimated Void Medium Medium # Bowel Movements 0 # Voids 1 3 Microbiology 02/25/18 08:28 Gram Stain - Final Misc Fluid (See Comment) - Wrist Right Body Fluid Culture - Preliminary No Growth Day 1 Skin and Soft Tissue MRSA/MSSA (PCR - Final Mrsa Negative S.aureus Negative 02/25/18 08:28 Gram Stain - Final Misc Fluid (See Comment) - Elbow Right Body Fluid Culture - Preliminary No Growth Day 1 Skin and Soft Tissue MRSA/MSSA (PCR - Final Mrsa Negative S.aureus Negative 02/25/18 08:28 Anaerobic Culture - Preliminary Wound - Elbow Right No Growth Day 1 Gram Stain - Final Wound Culture - Preliminary No Growth Day 1 02/25/18 08:28 Anaerobic Culture - Preliminary Wound - Wrist Right No Growth Day 1 Gram Stain - Final 02/24/18 17:38 Gram Stain - Final Joint Fluid(Synovial) Body Fluid Culture - Preliminary No Growth Day 2 Skin and Soft Tissue MRSA/MSSA (PCR - Final Mrsa Negative S.aureus Negative Assessment: [POD 1 I&D right elbow and right wrist ] Plan: [Continue with pain medication D/C percocet as the pt states it causes a reaction, pt states it makes him "go crazy" Continue with abx Dr. Awad will be consulted Pt advised to utilize ICE and elevation to help with swelling. Should he feel the splint is causing him discomfort we can be contacted and one of the providers can remove the splint. ]
[2018-02-26] MEDS: Warfarin TAB(*) 5 MG PO SCH (16:36)
--- NOTE | 2018-02-26 17:12 | CONS ---
CONSULTATION REPORT: DATE OF CONSULT: 02/26/18 REQUESTING PROVIDER: ALBAN Bonilla CONSULTING SERVICE: Infectious Disease. REASON FOR CONSULT: Right wrist and elbow effusion. IMPRESSION: 1. Effusion in the right wrist and elbow shortly after right shoulder pain with elevated inflammatory markers, no systemic symptoms. There was apparently not much in the way of cellulitis or soft tissue abnormality between the elbow and wrist. The differential diagnosis include the septic arthritis given there are 77,000 white cells in the fluid; however, I think it is less likely by the negative cultures, negative staphylococcus PCR, and negative constitutional symptoms as well as multiple joints involved without much in the way of intervening soft tissue infection. I think the more likely diagnoses are crystal arthropathies including pseudogout despite the negative fluid crystal analysis, which may be unreliable. Lyme arthritis was raised, that is a possibility, he just shows up a few months after the initial infection. He did not recall a febrile or flu-like illness or rash last fall or early winter; however, still possibility made less likely by the presence of multiple joints involved. 2. Atrial fibrillation, on anticoagulation. RECOMMENDATIONS: Stop vancomycin and Zosyn. The Lyme serology has been sent and is pending. Please ask Dr. Read to evaluate the patient for possibility of pseudogout and its treatment. HISTORY OF PRESENT ILLNESS: This is a 72-year-old man, otherwise healthy, recently admitted with right elbow pain. About 2 weeks ago, he started to have right shoulder pain that hurt so much he could not sleep on it, could not move the arm for a couple of weeks. It started to subside but about the same time, the right elbow started to become painful, swollen, and stiff. The pain was quite severe, so he saw Dr. Corona on 02/24/18. He aspirated 7 cc of cloudy fluid in the emergency room noting no purulence and a string sign at the time and elected to proceed with an incision and drainage the following morning. The initial fluid cultures and studies from the elbow showed 77,000 white cells , 80% neutrophils, no crystals. He was taken to the operating room the next morning. Interestingly, by that time, his right wrist became quite painful. The patient does not recall any swelling, pain, or redness in the area between the elbow and the wrist, just at the wrist that developed overnight and was quite bothersome the next day, so he had those washed out. Dr. Corona noted the changes grossly compatible with pseudogout intraoperatively. He is on vancomycin and Zosyn. He has had no fevers, chills, sweats, or diarrhea here. He had no fevers, chills, sweats, or weight loss while at home. He has not had infection requiring hospitalization in the past. PAST MEDICAL HISTORY: 1. Coronary artery disease, history of PCI. 2. History of stroke. 3. Atrial fibrillation, on anticoagulation. 4. Hypertension. 5. Obstructive sleep apnea. 6. Hyperlipidemia. 7. Status post ICD placement, history of infection and extraction, replaced 2013. 8. Status post bilateral knee arthroplasties. 9. History of carpal tunnel surgery. MEDICATIONS: 1. Tylenol. 2. Amlodipine. 3. Coreg. 4. Losartan. 5. Magnesium. 6. Omeprazole. 7. Zosyn by continuous infusion. 8. Vancomycin 1 g every 8 hours. 9. Warfarin. ALLERGIES: FLAGYL, NIACIN, TRAMADOL, LIPITOR, PERCOCET. FAMILY HISTORY: No apparent infections. SOCIAL HISTORY: He lives in [place]. 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 No travel or sick contacts. 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 He does not recall any tick bites in the last year. REVIEW OF SYSTEMS: All negative except 14-point review of systems except as noted above. PHYSICAL EXAM: Vital Signs: Temperature 36.6, heart rate 70, respiratory rate 14, blood pressure 130/70, oxygen saturation 97% on room air. General: He is awake, and not in distress. Neurologic: He is oriented x3. Follows all commands. HEENT: There is no conjunctival hemorrhage. Oropharynx without lesions. Neck: Supple without mass. Lymph Nodes: There is no inguinal, axillary, or epitrochlear lymphadenopathy. Heart: Regular rate and rhythm without murmurs, rubs, or gallops. Lungs: Clear to auscultation bilaterally. Abdomen: Soft, nontender, nondistended. There are bowel sounds present. Skin : There is no rash or splinter hemorrhages. Musculoskeletal: No spine tenderness to palpation or joint synovitis. Right arm wrapped, the fingers are edematous and with decreased range of motion, though warm. LABORATORY DATA: White blood cell count 10, hemoglobin 12, platelets 330. Creatinine was 0.9. CRP 74. Please see the impressions and recommendation as outlined above. Thanks for asking me to see Mr. Ordonez in consultation. [id number]/[facility] #: [id number] YURI
--- NOTE | 2018-02-26 18:20 | CONSULT ---
Consult Consult: Mr. Ordonez has had an additive oligoarticular inflammatory arthropathy involving his shoulder, then elbow and wrist. Radiographic appearance revealed chondrocalcinosis and presentation is consistent with pseudogout. Consider an underlying metabolic etiology as a cause of his flare although often it is idiopathic. An evolving connective tissue disorder is also possible but seems less likely. We will check serologies for this. Consider adding low dose colchicine at once or twice daily to help resolve inflammation
--- NOTE | 2018-02-26 20:30 | CONS ---
CONSULTATION REPORT: DATE OF CONSULT: 02/26/18 CONSULTING PHYSICIANS: Dr. Sanders; ALBAN Hair; and Dr. Read. REASON FOR CONSULTATION: Oligoarticular joint pain and swelling. HISTORY OF PRESENT ILLNESS: Mr. Ordonez is a 72-year-old male with a history of cerebrovascular disease and coronary artery disease. He has had no prior episodes of gout or pseudogout or even significant arthritis; however, about 2 weeks prior to admission, he began to have right upper shoulder discomfort, which progressed to the point that it was difficult to sleep on it and he could not put any pressure on the arm. It started to subside, but then the pain seemed to migrate to the right elbow to the point that the elbow was painful, swollen, and very stiff. It was quite severe. He had seen Dr. Corona on and an aspiration was done of 7 cc of cloudy fluid, but this showed no purulence and because of the concern for a possible septic arthritis, he had an incision and drainage. The cultures showed no growth, but there are 77,000 white cells, 80% neutrophils, no crystals. His right wrist also was painful at that time and progressed to the point that it was difficult to mobilize, so he had these washed out as well. The changes were consistent with possible pseudogout. He was initially placed on vancomycin and Zosyn, which had been tapered by Dr. Sanders as he was not felt to have an infectious process. He denies any fever, chills, or other symptoms. He denies any rash or significant back pain. He does have a history of knee osteoarthritis with prior joint surgery, but no recent surgery and he denied any chills, fevers, sweats, or night sweats. He has had no recent infection. PAST MEDICAL HISTORY: Includes: 1. History of cerebrovascular disease with a stroke. 2. History of coronary artery disease, history of PCI. 3. Atrial fibrillation, on anticoagulation. 4. Hypertension. 5. Obstructive sleep apnea. 6. Hyperlipidemia. 7. ICD placement, history of infection and extraction, replaced in 2013. PAST SURGICAL HISTORY: Includes: 1. Bilateral knee arthroplasties. 2. History of carpal tunnel surgery. MEDICATIONS: At home included: 1. Tylenol. 2. Amlodipine. 3. Coreg. 4. Losartan. 5. Magnesium. 6. Omeprazole. 7. Zosyn. 8. Vancomycin, which is being tapered. 9. He is on also on warfarin. Current medications, he is on: 1. Acetaminophen. 2. Amlodipine. 3. Carvedilol. 4. Losartan. 5. Morphine sulfate as needed. 6. Omeprazole. 7. Oxycodone as needed. 8. Crestor. 9. Coumadin. ALLERGIES: Include FLAGYL, NIACIN, TRAMADOL, LIPITOR, and PERCOCET. FAMILY HISTORY: Negative for lupus or rheumatoid arthritis. There is some arthritis in the family, but no recent infections in the family and no exposure to infectious agents. SOCIAL HISTORY: He lives in [place]. 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 He has had no recent travel or sick contacts. He does spend a lot of time outdoors. 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 REVIEW OF SYSTEMS: General: Denies acute symptoms of fatigue. HEENT: Denies iritis. Denies stroma to the eyes or dry mouth or dry eyes. Chest: Denies shortness of breath or chest pain. Cardiac: Denies chest wall pain. Denies pulmonary symptoms. GI: Denies abdominal pain. Denies nausea, vomiting. Musculoskeletal: As noted above. Skin: Denies rash. Neurologic: Denies any focal weakness. Currently, the right arm is in a brace. PHYSICAL EXAM: His temperature is 97.9, respiratory rate of 14, blood pressure 133/73, pulse ox 97%. In general, he is pleasant, alert and oriented, awake, sitting up in bed, comfortable and talking. On musculoskeletal exam, he had a diffuse swelling of the right hand, which is in a splint and cast so that it was difficult to mobilize, but it did have a diffuse swollen boxing glove appearance to it. All the digits were moderately swollen, but he was able to limitedly flex and extend his digits at the MCP and PIP joints. There was slightly decreased range of motion of the elbow as it was in a cast and the shoulder had slightly decreased range of motion, but no synovitis. Sensation to light touch is intact and motor strength is intact. His HEENT exam was normocephalic, atraumatic. Pupils equal, round, and reactive to light and accommodation. Extraocular movements are intact. Lungs are clear to auscultation bilaterally. Cardiovascular exam revealed a regular rate and rhythm. Normal S1 and S2. No S3 or S4. Point of maximum impulse nondisplaced. Abdomen: Soft, nontender, nondistended. Positive bowel sounds with no organomegaly. Extremities: No cyanosis, clubbing, or edema. Skin: He had mild scarring over his knees where he had prior knee replacements. : No CVA tenderness. Neurologic: Nonfocal. Motor strength is intact and normal except for the right upper extremity. Pulses were intact and normal. LABORATORY DATA/DIAGNOSTIC STUDIES: He had a Gram stain body fluid culture, which was negative. Spinal culture was negative. Anaerobic culture was negative. Otherwise, on labs, he had a white count of 10.9, hemoglobin of 12.5, ESR 103 which went to 113. Sodium of 134, creatinine of 0.97, glucose of 121 which improved to 93 with a calcium of 9. Uric acid was low at 3.7 with glucose of 121. CRP was elevated at 74.71. Albumin to globulin ratio was 0.9 and synovial fluid analysis showed 77,522 cells. He did have a shoulder x-ray on 02/24/18, which showed osteoarthritis with stigmata of chronic rotator cuff pathology and calcific tendinopathy. Forearm x -rays showed osteoarthritis with a joint effusion and loose bodies, negative for fracture, and elbow x-ray showing osteoarthritis with associated elbow effusion and loose bodies, negative for fracture. There was chondrocalcinosis present. ASSESSMENT AND PLAN: Mr. Ordonez has an oligoarticular inflammatory arthropathy with some elevated sedimentation rate and C-reactive protein. Cultures have been negative so far and his radiographic appearance and surgical appearance was consistent with some chondrocalcinosis which can lead to pseudogout considering underlying metabolic etiology, given his metabolic history; however , he is slightly anemic and his calcium level was normal. I would also check rheumatoid factor and connective tissue panel, although again symptoms and clinical presentation is most consistent with pseudogout. Consider adding low- dose colchicine at 0.6 mg daily, which can go up to 0.6 mg twice daily; there is some risk of an interaction with his blood thinner medication so the dose should be kept fairly low. We would probably avoid NSAIDs given his cardiac history. We discussed pseudogout and the possible underlying etiologies, which often are idiopathic. We would continue to follow daily. [id number]/[facility] #: [id number] [facility]
[2018-02-27] MEDS: oxyCODONE TAB* 5 MG TAB PO PRN (05:48)
[2018-02-27] MEDS: Carvedilol TAB* 6.25 MG PO SCH ×2 (08:27→21:23)
[2018-02-27] MEDS: amLODIPine TAB* 5 MG PO SCH (08:28)
[2018-02-27] MEDS: Omeprazole CAP* 20 MG PO SCH (08:28)
[2018-02-27] MEDS: Losartan TAB* 25 MG PO SCH (08:29)
[2018-02-27] MEDS: Magnesium Hydroxide LIQ* 30 ML UDC PO SCH ×2 (08:30→21:23)
[2018-02-27] MEDS: CMCS: Rosuvastatin (NF) 10 MG TAB PO SCH (08:46)
[2018-02-27] MEDS: Morphine VIAL* 4 MG/ML VIAL (1 ml vial) IV PRN ×2 (08:46→14:39)
--- NOTE | 2018-02-27 10:46 | PN ---
Progress Note - Progress Note Date of Service: 02/27/18 SOAP: Subjective: CC: right wrist and elbow effusion HPI: 72 year old man with right shoulder pain and stiffness then right elbow and wrist pain, swelling, and stiffness; had I&D of wrist and elbow which he tolerated well. R fingers less swollen. No fever, rash, or diarrhea. Objective: Vital Signs Temp 36.8 C 02/27/18 03:05 Pulse 71 02/27/18 03:05 Resp 16 02/27/18 08:46 BP 117/68 02/27/18 03:05 Pulse Ox 98 02/27/18 03:05 Intake & Output 02/26/18 02/27/18 02/27/18 18:59 06:59 18:59 Intake Total 1805 2931 360 Balance 1805 2931 360 Intake: IV Fluids 1930 LR 1930 Oral 1805 1000 360 Other: Estimated Void Medium Large # Bowel Movements 0 # Voids 2 1 Gen:awake,no distress HEENT: no thrush Heart:RRR no murmur Lungs:CTA BL Abd:+BS NTND soft Skin: no rash MSK: R arm wrapped; fingers swollen non tender Laboratory Results - last 24 hr 02/24/18 02/24/18 02/26/18 17:38 17:38 12:52 WBC 7.4 ESR 113 H INR (Anticoag Therapy) Ferritin PTH Intact Calcium (PTH Intact) Fluid Source Synovial Fluid Glucose 46 B. burgdorferi (PCR) Negative B. mayonii (PCR) Negative B.garinii/B.afzelii PCR Negative Lyme Specimen Source Synovial 02/26/18 02/26/18 02/26/18 12:52 19:51 19:51 WBC ESR INR (Anticoag Therapy) 2.86 H Ferritin 400.1 H PTH Intact 3.3 Calcium (PTH Intact) 8.0 L Fluid Source Fluid Glucose B. burgdorferi (PCR) B. mayonii (PCR) B.garinii/B.afzelii PCR Lyme Specimen Source Assessment: 1. Inflammatory polyarthropathy right shoulder, elbow, wrist; Pseudogout. Infectious etiologies including Lyme unlikely (Bb PCR neg) Plan: 1. continue to observe off of antibiotics; colchicine per Dr Read Discussed with Sharmila PHOENIX
--- NOTE | 2018-02-27 14:00 | PN ---
Progress Note - Progress Note Date of Service: 02/27/18 SOAP: Subjective: []Patient seen at bedside. He is very comfortable at this time and in no pain. Hand swelling has reduced somewhat. He denies fever or chills. Objective: [] Vital Signs Temp 97.9 F 02/27/18 07:36 Pulse 70 02/27/18 07:36 Resp 16 02/27/18 11:00 BP 123/81 02/27/18 07:36 Pulse Ox 98 02/27/18 08:00 Intake & Output 02/26/18 02/27/18 02/27/18 18:59 06:59 18:59 Intake Total 1805 2931 360 Balance 1805 2931 360 Intake: IV Fluids 1930 LR 193 Oral 1805 1000 360 Other: Estimated Void Medium Large # Bowel Movements 0 # Voids 2 1 Laboratory Last Values WBC 7.4 10^3/ul (3.5-10.8) 02/26/18 12:52 RBC 4.08 10^6/ul (4.0-5.4) 02/24/18 14:18 Hgb 12.5 g/dl (14.0-18.0) L 02/24/18 14:18 Hct 36 % (42-52) L 02/24/18 14:18 MCV 89 fL (80-94) 02/24/18 14:18 MCH 31 pg (27-31) 02/24/18 14:18 MCHC 34 g/dl (31-36) 02/24/18 14:18 RDW 13 % (10.5-15) 02/24/18 14:18 Plt Count 330 10^3/ul (150-450) 02/24/18 14:18 MPV 6.9 um3 (7.4-10.4) L 02/24/18 14:18 ESR 113 mm/Hr (0-40) H 02/26/18 12:52 INR (Anticoag Therapy) 2.86 (0.77-1.02) H 02/26/18 12:52 APTT 36.9 seconds (26.0-36.3) H 02/24/18 14:18 Sodium 134 mmol/L (139-145) L 02/26/18 05:37 Potassium 3.9 mmol/L (3.5-5.0) 02/26/18 05:37 Chloride 102 mmol/L (101-111) 02/26/18 05:37 Carbon Dioxide 28 mmol/L (22-32) 02/26/18 05:37 Anion Gap 4 mmol/L (2-11) 02/26/18 05:37 BUN 11 mg/dL (6-24) 02/26/18 05:37 Creatinine 0.89 mg/dL (0.67-1.17) 02/26/18 05:37 Est GFR ( Amer) 108.7 (>60) 02/26/18 05:37 Est GFR (Non-Af Amer) 84.5 (>60) 02/26/18 05:37 BUN/Creatinine Ratio 12.4 (8-20) 02/26/18 05:37 Glucose 93 mg/dL (70-100) 02/26/18 05:37 Uric Acid 3.7 mg/dL (4.4-7.6) L 02/24/18 14:18 Calcium 8.6 mg/dL (8.6-10.3) 02/26/18 05:37 Ferritin 400.1 ng/mL (24-336) H 02/26/18 19:51 Total Bilirubin 0.50 mg/dL (0.2-1.0) 02/24/18 14:18 AST 16 U/L (13-39) 02/24/18 14:18 ALT 14 U/L (7-52) 02/24/18 14:18 Alkaline Phosphatase 45 U/L (34-104) 02/24/18 14:18 Total Creatine Kinase 35 U/L (10-223) 02/24/18 14:18 C-Reactive Protein 74.71 mg/L (< 5.00) H 02/24/18 14:18 Total Protein 7.2 g/dL (6.4-8.9) 02/24/18 14:18 Albumin 3.4 g/dL (3.2-5.2) 02/24/18 14:18 Globulin 3.8 g/dL (2-4) 02/24/18 14:18 Albumin/Globulin Ratio 0.9 (1-3) L 02/24/18 14:18 PTH Intact 3.3 pmol/L (1.3-9.3) 02/26/18 19:51 Calcium (PTH Intact) 8.0 mg/dL (8.6-10.3) L 02/26/18 19:51 Fluid Source Synovial 02/24/18 17:38 Fluid Volume 8 mL 02/24/18 17:38 Fluid Color Yellow 02/24/18 17:38 Fluid Appearance Cloudy 02/24/18 17:38 Fluid WBC 57808 /mcL (0-750023) 02/24/18 17:38 Fluid RBC 3296 /mcL 02/24/18 17:38 Fluid Tot Cell Count 100 02/24/18 17:38 Fluid Neutrophils 83 % 02/24/18 17:38 Fluid Lymphocytes 5 % 02/24/18 17:38 Fluid Monocytes 12 % 02/24/18 17:38 Fluid Cell Count Rvw By 02/24/18 17:38 Fluid Crystals None seen (None Seen) 02/25/18 08:28 Fluid Crystal Interp Cancelled 02/24/18 17:38 Fluid Glucose 46 mg/dL 02/24/18 17:38 B. burgdorferi (PCR) Negative (Negative) 02/24/18 17:38 B. mayonii (PCR) Negative (Negative) 02/24/18 17:38 B.garinii/B.afzelii PCR Negative (Negative) 02/24/18 17:38 Vancomycin Trough 12.4 mcg/mL 02/26/18 05:37 Lyme Specimen Source Synovial 02/24/18 17:38 General: Well appearing, NAD, pleasant and coopertaive. RUE: Splint removed. All digits of the right hand are moderately swollen when compared to the contralateral hand. He is able to flex and extend his digits at the MCP, PIP and DIP joints without pain though decreased ROM of all the digits remains. Cap refill of all digits is less than 2 seconds. Sensation to light touch is intact to all digits. Wrist tender to palpation, remains swollen though no erythema. Unable to passively flex and extend at wrist, reportedly limited by pain. Forearm compressible and nontender. Elbow edematous but nonerythematous. elbow limited to ROM 70-90 degrees endpoints limited by. Both surgical incisions CDI with well approximated wound edges. Redressed with soft dressing. Assessment: []Right elbow and wrist pseudogout Plan: []Discussed this case and treatment with Dr Read. Due to interaction with cardiac meds, will not use colchicine. Will use medrol dose pack rather. ROM as tolerated PT/OT Daily dry sterile dressing changes
[2018-02-27] MEDS ORDERED: methylPREDNISolone TAB* 4 MG PO SCH (15:00)
[2018-02-27] MEDS: methylPREDNISolone TAB* 4 MG PO SCH ×3 (15:52→21:24)
[2018-02-27] MEDS: Warfarin TAB(*) 5 MG PO SCH (17:47)
--- NOTE | 2018-02-27 18:30 | PN ---
Subjective - Subjective Date of Service: 02/27/18 - Chief Complaint: joint swelling History: Overall Mr. Ordonez is starting to feel better. His elbow is improved and his Range of motion of his finger is improved. His shoulder is doing well and other joints feel well Current Medications: Current Medications Acetaminophen (Tylenol Tab*) 487.5 mg PO Q6H PRN PRN Reason: PAIN Amlodipine Besylate (Norvasc Tab*) 2.5 mg PO DAILY [facility] Last Admin: 02/27/18 08:28 Dose: 2.5 mg Carvedilol (Coreg Tab*) 12.5 mg PO BID [facility] Last Admin: 02/27/18 08:27 Dose: 12.5 mg Lactated Ringer's (Lactated Ringers 1000 Ml Bag*) 1,000 mls @ 100 mls/hr IV PER RATE [facility] Last Admin: 02/27/18 12:48 Dose: 100 mls/hr Losartan Potassium (Cozaar Tab*) 50 mg PO DAILY [facility] Last Admin: 02/27/18 08:29 Dose: 50 mg Magnesium Hydroxide (Milk Of Magnesia Liq*) 30 ml PO BID [facility] Last Admin: 02/27/18 08:30 Dose: 30 ml Magnesium Hydroxide (Milk Of Magnesia Liq*) 30 ml PO Q6H PRN PRN Reason: constipation Methylprednisolone (Medrol Tab*) 8 mg PO 1430,1730,2100 [facility] Stop: 02/27/18 21:01 Last Admin: 02/27/18 17:47 Dose: 8 mg Methylprednisolone (Medrol Tab*) 4 mg PO 0730,1300,1800 [facility] Stop: 02/28/18 18:01 Methylprednisolone (Medrol Tab*) 8 mg PO 2100 [facility] Stop: 02/28/18 21:01 Methylprednisolone (Medrol Tab*) 4 mg PO 0730,1300,1800,2100 [facility] Stop: 03/01/18 21:01 Methylprednisolone (Medrol Tab*) 4 mg PO 0730,1300,2100 [facility] Stop: 03/02/18 21:01 Methylprednisolone (Medrol Tab*) 4 mg PO 0730,2100 [facility] Stop: 03/03/18 21:01 Morphine Sulfate (Morphine Vial*) 4 mg IV Q2H PRN PRN Reason: PAIN Last Admin: 02/27/18 14:39 Dose: 4 mg Omeprazole (Prilosec Cap*) 40 mg PO DAILY [facility] Last Admin: 02/27/18 08:28 Dose: 40 mg Oxycodone HCl (Roxycodone Tab*) 5 mg PO Q6H PRN PRN Reason: PAIN Last Admin: 02/27/18 05:48 Dose: 5 mg Rosuvastatin Calcium (Crestor (Nf)) 10 mg PO DAILY [facility] Last Admin: 02/27/18 08:46 Dose: 10 mg Warfarin Sodium (Coumadin Tab(*)) 5 mg PO DAILY@1700 [facility] PRN Reason: Protocol Last Admin: 02/27/18 17:47 Dose: 5 mg - Review of Systems Constitutional Symptoms: No: Weight Gain, Weakness, Fatigue, Fever Dermatology: Normal: Yes HEENT: Yes Normal Eyes: Positive: Normal Thyroid: Positive: Normal Pulmonary: Positive: Normal Cardiology: Positive: Normal Gastroenterology: Positive: Normal Musculoskeletal: Positive: Joint Stiffness, Arthritis, Joint Deformities Endocrinology: Positive: Normal Psychiatry: Positive: Normal Home Medications: Home Medications Medication Instructions Recorded Confirmed Type Rosuvastatin (NF) [Crestor (NF)] 10 mg PO QPM 08/26/12 02/24/18 History Aspirin [Aspirin EC] 81 mg PO QAM 10/19/14 02/24/18 History Carvedilol 12.5 mg PO BID 07/06/15 02/24/18 History Irbesartan (NF) [Avapro (NF)] 150 mg PO QPM 07/06/15 02/24/18 History Nitroglycerin TAB 0.4 MG* 0.4 mg SL . NEEDED PRN 11/24/16 02/24/18 History Fyffe-3/Dha/Epa/Fish Oil [Fish Oil 1,000 mg PO DAILY 08/26/17 02/24/18 History 1,000 mg Softgel] Isosorbide Mononitrate ER TAB* 30 mg PO DAILY #30 tab.er 08/27/17 02/24/18 Rx [Imdur ER TAB*] Warfarin TAB(*) [Coumadin TAB(*)] 5 mg PO DAILY 11/21/17 02/24/18 History Omeprazole [Prilosec] 40 mg PO DAILY 12/03/17 02/24/18 History Multivitamin [Multivitamins] 1 cap PO DAILY 12/06/17 02/24/18 History amLODIPine TAB* [Norvasc 5 mg TAB*] 2.5 mg PO DAILY 12/06/17 02/24/18 History Warfarin TAB(*) [Coumadin TAB(*)] 1 mg PO WEEKLY 02/24/18 02/24/18 History Allergies: Allergies Allergy/AdvReac Type Severity Reaction Status Date / Time metronidazole Allergy Severe Anaphylatic Verified 12/06/17 11:05 Shock niacin Allergy Intermediate Rash Verified 12/06/17 11:05 tramadol [From Ultracet] Allergy Unknown Verified 12/06/17 11:05 Reaction Details atorvastatin AdvReac Severe Muscle Ache Verified 12/06/17 11:05 Objective - Vital Signs Vital Signs: Vital Signs 02/26/18 02/26/18 02/26/18 18:30 19:51 20:00 Temperature 98.7 F Pulse Rate 79 Respiratory 16 15 17 Rate Blood Pressure 115/65 (mmHg) O2 Sat by Pulse 95 Oximetry 02/26/18 02/26/18 02/27/18 22:48 23:38 00:00 Temperature 98.7 F Pulse Rate 71 Respiratory 17 16 Rate Blood Pressure 127/73 (mmHg) O2 Sat by Pulse 100 95 Oximetry 02/27/18 02/27/18 02/27/18 02:40 03:05 05:48 Temperature 98.3 F Pulse Rate 71 Respiratory 16 17 Rate Blood Pressure 117/68 (mmHg) O2 Sat by Pulse 95 98 Oximetry 02/27/18 02/27/18 02/27/18 07:36 08:00 08:46 Temperature 97.9 F Pulse Rate 70 Respiratory 16 16 16 Rate Blood Pressure 123/81 (mmHg) O2 Sat by Pulse 98 98 Oximetry 02/27/18 02/27/18 02/27/18 11:00 11:16 14:39 Temperature 97.9 F Pulse Rate 67 Respiratory 16 18 17 Rate Blood Pressure 117/70 (mmHg) O2 Sat by Pulse 99 Oximetry 02/27/18 02/27/18 02/27/18 15:41 16:00 16:30 Temperature 99.1 F Pulse Rate 67 Respiratory 18 18 Rate Blood Pressure 121/76 (mmHg) O2 Sat by Pulse 100 100 Oximetry - Intake and Output Intake and Output: Intake & Output 02/25/18 02/26/18 02/27/18 02/28/18 06:59 06:59 06:59 06:59 Intake Total 605 3346 4736 2157 Output Total 0 Balance 605 3346 4736 2157 Weight 193 lb 11.2 oz Intake: IV Fluids 605 1955 1931 1007 LR 6 1930 1007 NS (0.9%) 605 Oral 0 1390 2805 1150 Output: Urine 0 Other: Estimated Void Medium Large Medium # Bowel Movements 0 0 0 1 Estimated Stool Amount Large # Voids 0 3 1 4 ADLs: Meal Record Start: 02/24/18 20: 52 Freq: DAILY@0900,1400,1800 Status: Active Protocol: Document 02/25/18 09:00 [id number] (Rec: 02/25/18 11:54 [id number] MED-C11) Document 02/25/18 14:00 [id number] (Rec: 02/25/18 14:51 [id number] MED-C11) Document 02/25/18 18:00 [id number] (Rec: 02/25/18 18:21 [id number] MED-C14) Document 02/26/18 09:00 [id number] (Rec: 02/26/18 10:28 [id number] MED-C09) Document 02/26/18 13:41 [id number] (Rec: 02/26/18 13:43 [id number] MED-C11) Document 02/26/18 18:00 [id number] (Rec: 02/26/18 19:37 [id number] MED-C14) Document 02/27/18 09:00 [id number] (Rec: 02/27/18 10:34 [id number] MED-C11) Document 02/27/18 14:00 [id number] (Rec: 02/27/18 14:35 [id number] MED-C11) Intake and Output Start: 02/24/18 20: 52 Freq: DAILY@0600,1400,2200 Status: Cancelled Protocol: Document 02/24/18 21:31 [id number] (Rec: 02/24/18 21:32 [id number] MED-C09) Document 02/25/18 06:00 [id number] (Rec: 02/25/18 06:23 [id number] MED-C12) Intake and Output Start: 02/25/18 09: 33 Freq: 06,14,2200 Status: Active Protocol: Created 02/25/18 09:42 [id number] (Rec: 02/25/18 09:42 [facility] [id number]) Document 02/25/18 14:00 [id number] (Rec: 02/25/18 14:51 [id number] MED-C11) Document 02/25/18 22:00 [id number] (Rec: 02/25/18 22:08 [id number] MED-C14) Document 02/26/18 06:00 [id number] (Rec: 02/26/18 06:02 [id number] MED-C05) Document 02/26/18 13:41 [id number] (Rec: 02/26/18 13:43 [id number] MED-C11) Document 02/26/18 22:00 [id number] (Rec: 02/26/18 22:42 [id number] MED-C14) Document 02/27/18 05:08 [id number] (Rec: 02/27/18 05:08 [id number] MED-C11) Document 02/27/18 14:00 [id number] (Rec: 02/27/18 14:35 [id number] MED-C11) - Physical Exam General Physical Exam Comment: no acute distress, sitting up; his elbow remains wrapped; there is improvement in finger ROM Eye Exam: bilateral: PERRLA Thyroid Function: Clinically Euthyroid Lungs and Chest: Yes: Chest Expansion Full, Chest Expansion Symetrica, Percussion Note Resonant Heart Rate and Rhythm: Normal JVP: Not Elevated Disputanta Beat: Non Displaced Additional Cardiovascular: Yes: Disputanta Beat not Displaced, Normal Heart Sounds Abdominal Exam: Yes: Soft - Rheumotological System Joints: Joint Swelling - Improved ROM of his hand - Neuro Psychiatric: Normal Speech: Normal Results - Results Lab Results: Laboratory Results - last 24 hr 02/26/18 02/26/18 19:51 19:51 Ferritin 400.1 H PTH Intact 3.3 Calcium (PTH Intact) 8.0 L Assessment - Problem List Assessment: Patient Problems Afib (Acute) Anaphylactic reaction (Acute) CAD (coronary artery disease) (Acute) DVT prophylaxis (Acute) Diverticulitis (Acute) Full code status (Acute) Osteoarthritis of left knee (Acute 06/15/14) Plan: 1) Pseudogout: improved as his attack gradually subsides. I have spoken to inpatient pharmacy; while not absolutely contraindicated, there is concern that there could be a potential significant interaction with Colchicine and his cardiac medication. Therefore it was cancelled and not given. I have spoken to Sharmila Carrillo who will start a medrol dose pack 2) Elevated inflammatory markers: would follow for improvement 3) Hypocalcemia: would follow; if it stays low consider checking intact PTH 4) Elevated ferritin: checked as part of metabolic workup for chondrocalcinosis ; it is elevated but may be part of his acute inflammatory process. Would follow ferritin levels as he is improving. If ferritin stays elevated, consider an evaluation for hemochromatosis, although his liver tests last year were normal. Coordination of Care: Yes
[2018-02-28] MEDS ORDERED: Vancomycin Trough Check NOTE FOLLOW UP ONE (05:30)
[2018-02-28 06:29] LABS: EGFR Non-African American 101.4 (>60)
[2018-02-28] MEDS: amLODIPine TAB* 5 MG PO SCH (08:32)
[2018-02-28] MEDS: Losartan TAB* 25 MG PO SCH (08:33)
[2018-02-28] MEDS: Omeprazole CAP* 20 MG PO SCH (08:34)
[2018-02-28] MEDS: Carvedilol TAB* 6.25 MG PO SCH (08:35)
[2018-02-28] MEDS: methylPREDNISolone TAB* 4 MG PO SCH ×2 (08:36→13:34)
[2018-02-28] MEDS: CMCS: Rosuvastatin (NF) 10 MG TAB PO SCH (08:37)
[2018-02-28] MEDS: Magnesium Hydroxide LIQ* 30 ML UDC PO SCH (08:38)
[2018-02-28] MEDS ORDERED: Colchicine* 0.6 MG TAB PO SCH (09:00)
--- NOTE | 2018-02-28 10:04 | PN ---
Progress Note - Progress Note Date of Service: 02/28/18 SOAP: Subjective: CC: right wrist and elbow effusion HPI: 72 year old man with right shoulder pain and stiffness then right elbow and wrist pain, swelling, and stiffness; had I&D of wrist and elbow which he tolerated well. R fingers less swollen; wrist and elbow ROM improving. Objective: Vital Signs Temp 36.5 C 02/28/18 07:23 Pulse 70 02/28/18 07:23 Resp 17 02/28/18 08:00 BP 113/69 02/28/18 07:23 Pulse Ox 99 02/28/18 08:00 Intake & Output 02/27/18 02/28/18 02/28/18 18:59 06:59 18:59 Intake Total 2807 1419 Balance 2807 1419 Intake: IV Fluids 1007 1419 LR 1007 1419 Oral 1800 0 Other: Estimated Void Medium Large # Bowel Movements 1 0 Estimated Stool Amount Large Large # Voids 4 2 Gen:awake,no distress HEENT: no thrush Heart:RRR no murmur Lungs:CTA BL Abd:+BS NTND soft Skin: no rash MSK: R arm wrapped; fingers swollen non tender; R wrist and elbow active ROM decr but improved Assessment: 1. Inflammatory polyarthropathy right shoulder, elbow, wrist; Pseudogout. Infectious etiologies including Lyme unlikely (Bb PCR neg) Plan: 1. continue to observe off of antibiotics; colchicine/corticosteroids per Dr Read
--- NOTE | 2018-02-28 14:38 | PN ---
Progress Note - Progress Note Date of Service: 02/28/18 SOAP: Subjective: [] Patient seen at bedside. He feels well and is ready for discharge home. Denies fever, chills, CP, SOB, dizziness. Right elbow and wrist remain painful though much improved from yesterday. ROM elbow also reportedly much improved. Objective: [] Vital Signs Temp 97.7 F 02/28/18 07:23 Pulse 70 02/28/18 07:23 Resp 17 02/28/18 08:00 BP 113/69 02/28/18 07:23 Pulse Ox 99 02/28/18 08:00 Intake & Output 02/27/18 02/28/18 02/28/18 18:59 06:59 18:59 Intake Total 2807 1419 1420 Balance 2807 1419 1420 Intake: IV Fluids 1007 1419 LR 1007 1419 Oral 1800 0 1420 Other: Estimated Void Medium Large Medium # Bowel Movements 1 0 Estimated Stool Amount Large Large # Voids 4 2 3 Laboratory Last Values WBC 7.4 10^3/ul (3.5-10.8) 02/26/18 12:52 RBC 4.08 10^6/ul (4.0-5.4) 02/24/18 14:18 Hgb 12.5 g/dl (14.0-18.0) L 02/24/18 14:18 Hct 36 % (42-52) L 02/24/18 14:18 MCV 89 fL (80-94) 02/24/18 14:18 MCH 31 pg (27-31) 02/24/18 14:18 MCHC 34 g/dl (31-36) 02/24/18 14:18 RDW 13 % (10.5-15) 02/24/18 14:18 Plt Count 330 10^3/ul (150-450) 02/24/18 14:18 MPV 6.9 um3 (7.4-10.4) L 02/24/18 14:18 ESR 113 mm/Hr (0-40) H 02/26/18 12:52 INR (Anticoag Therapy) 2.86 (0.77-1.02) H 02/26/18 12:52 APTT 36.9 seconds (26.0-36.3) H 02/24/18 14:18 Sodium 134 mmol/L (139-145) L 02/26/18 05:37 Potassium 3.9 mmol/L (3.5-5.0) 02/26/18 05:37 Chloride 102 mmol/L (101-111) 02/26/18 05:37 Carbon Dioxide 28 mmol/L (22-32) 02/26/18 05:37 Anion Gap 4 mmol/L (2-11) 02/26/18 05:37 BUN 13 mg/dL (6-24) 02/28/18 05:07 Creatinine 0.76 mg/dL (0.67-1.17) 02/28/18 05:07 Est GFR ( Amer) 130.4 (>60) 02/28/18 05:07 Est GFR (Non-Af Amer) 101.4 (>60) 02/28/18 05:07 BUN/Creatinine Ratio 12.4 (8-20) 02/26/18 05:37 Glucose 93 mg/dL (70-100) 02/26/18 05:37 Uric Acid 3.7 mg/dL (4.4-7.6) L 02/24/18 14:18 Calcium 8.6 mg/dL (8.6-10.3) 02/26/18 05:37 Ferritin 400.1 ng/mL (24-336) H 02/26/18 19:51 Total Bilirubin 0.50 mg/dL (0.2-1.0) 02/24/18 14:18 AST 16 U/L (13-39) 02/24/18 14:18 ALT 14 U/L (7-52) 02/24/18 14:18 Alkaline Phosphatase 45 U/L (34-104) 02/24/18 14:18 Total Creatine Kinase 35 U/L (10-223) 02/24/18 14:18 C-Reactive Protein 74.71 mg/L (< 5.00) H 02/24/18 14:18 Total Protein 7.2 g/dL (6.4-8.9) 02/24/18 14:18 Albumin 3.4 g/dL (3.2-5.2) 02/24/18 14:18 Globulin 3.8 g/dL (2-4) 02/24/18 14:18 Albumin/Globulin Ratio 0.9 (1-3) L 02/24/18 14:18 PTH Intact 3.3 pmol/L (1.3-9.3) 02/26/18 19:51 Calcium (PTH Intact) 8.0 mg/dL (8.6-10.3) L 02/26/18 19:51 Fluid Source Unk 02/24/18 17:38 Fluid Volume 8 mL 02/24/18 17:38 Fluid Color Yellow 02/24/18 17:38 Fluid Appearance Cloudy 02/24/18 17:38 Fluid pH 6.9 02/24/18 17:38 Fluid WBC 72417 /mcL (0-997674) 02/24/18 17:38 Fluid RBC 3296 /mcL 02/24/18 17:38 Fluid Tot Cell Count 100 02/24/18 17:38 Fluid Neutrophils 83 % 02/24/18 17:38 Fluid Lymphocytes 5 % 02/24/18 17:38 Fluid Monocytes 12 % 02/24/18 17:38 Fluid Cell Count Rvw By 02/24/18 17:38 Fluid Crystals None seen (None Seen) 02/25/18 08:28 Fluid Crystal Interp Cancelled 02/24/18 17:38 Fluid Glucose 46 mg/dL 02/24/18 17:38 B. burgdorferi (PCR) Negative (Negative) 02/24/18 17:38 B. mayonii (PCR) Negative (Negative) 02/24/18 17:38 B.garinii/B.afzelii PCR Negative (Negative) 02/24/18 17:38 Vancomycin Trough 2.7 mcg/mL 02/28/18 05:07 Lyme Disease Serology Equivocal (Negative) 02/26/18 05:37 Lyme Specimen Source Synovial 02/24/18 17:38 General: Well appearing, NAD, pleasant and cooperative. RUE: Dressing changed. All digits of the right hand are moderately swollen with decreased swelling from yesterday. He is able to flex and extend his digits at the MCP, PIP and DIP joints without pain though decreased ROM of all the digits remains. Cap refill of all digits is less than 2 seconds. Sensation to light touch is intact to all digits. Wrist mildly tender to palpation, remains swollen though much improved from yesterday and no erythema. Now has some ability passively flex and extend at wrist, improved from yesterday. Forearm compressible and nontender. Elbow remains edematous, decreased from yesterday and nonerythematous. Elbow ROM much improved today, passive ROM 5-100. Both surgical incisions CDI with well approximated wound edges. Redressed with soft dressing. Assessment: []Right elbow and wrist pseudogout Plan: Patient is ready for discharge home. Daily dry sterile dressing changes Range of motion as tolerated Finish Medrol dose pack Follow up with Dr. Read early next week Follow up with Dr. Sanders to be scheduled by ID office. Follow up with Dr. Corona next week
[2018-02-28] MEDS ORDERED: methylPREDNISolone TAB* 4 MG PO ONE (15:35)
[2018-02-28] MEDS: Warfarin TAB(*) 5 MG PO SCH (17:18)
[2018-02-28 17:59] VITALS: BP 129/75
[2018-02-28] MEDS ORDERED: methylPREDNISolone TAB* 4 MG PO SCH (21:00)
--- NOTE | 2018-03-01 05:13 | DS ---
DISCHARGE SUMMARY: DATE OF ADMISSION: 02/24/18 DATE OF DISCHARGE: 02/28/18 SURGEON: Jovani Corona MD * (DICTATED BY ALBAN JOHNSTON) PIGMENT PRESSER: ALBAN Dukes PRE-OP DIAGNOSIS: Infected right elbow and an infected right wrist. OPERATIVE PROCEDURE: Arthrotomy for incision and drainage of the right elbow joint infection and arthrotomy for incision and drainage of the right wrist joint infection. HISTORY: Raghavendra came into the emergency room the night of 02/23/18. The elbow joint was aspirated. White count came back as 70,000 and the patient was set up to undergo an I and D first thing in the morning. Upon arrival in the morning, Dr. Corona found that the right wrist had also become extremely painful and swollen overnight and, therefore, elected to undergo an I and D of both the right wrist and right elbow. HOSPITAL COURSE: The patient was admitted to [facility] on . He underwent an arthrotomy for incision and drainage of right elbow joint infection and arthrotomy for incision and drainage of right wrist joint infection without complication. He recovered briefly in the PACU and then was transferred to the short-stay surgical unit in stable condition. Postop day 1, he was awake, alert, oriented. His right upper extremity revealed a splint covering Mo, which was clean and dry. All digits of the hand moderately swollen when compared to the contralateral side. He was able to flex and extend the digits at the MCP, PIP, and DIP joints without pain. There was decreased range of motion in all the joints due to swelling. Capillary refill of all digits is less than 2 seconds. Sensation to light touch was intact at all digits. He was seen by Infectious Disease who felt that the most likely diagnosis was a crystal arthropathy such as pseudogout. He was also seen in consultation by Dr. Samuel Read from Rheumatology, who felt that the patient was suffering from pseudogout and had initially recommended colchicine as a treatment, though due to the patient's cardiac comorbidities, he felt that Medrol Dosepak would be the more appropriate treatment at this time. On postop day 2, the patient's splint was removed. His incisions appeared clean, dry, and intact. He still had significant swelling throughout the right upper extremity, though he had no erythema throughout the elbow or the wrist area. On postop day 3, the patient is well appearing, in no acute distress. The dressing was again changed. Incisions were clean, dry, and intact. He had great improvement of range of motion at the elbow joint with range of motion now 5 to 100 degrees and at the wrist, he did gain some range of motion in flexion and extension. He again had no erythema throughout the right upper extremity. Sensation is intact throughout the entire extremity. The patient was deemed to be medically and orthopedically stable for discharge home. Laboratory studies on 02/26/18: White blood cell count was 7.4. Vital signs on 02/28/18: Temperature 97.7, pulse rate 70, respiratory rate 17, oxygen saturation 99%, and blood pressure 113/69. The patient was deemed to be medically and orthopedically stable for discharge home. DISCHARGE MEDICATIONS: 1. Crestor 10 mg p.o. q.p.m. 2. Aspirin 81 mg p.o. q.a.m. 3. Avapro 150 mg p.o. q.p.m. 4. Carvedilol 12.5 mg p.o. b.i.d. 5. Nitroglycerin 0.4 mg sublingual p.r.n. 6. Fish oil 1000 mg softgel. 7. Imdur ER 30 mg p.o. daily. 8. Warfarin 5 mg p.o. daily. 9. Omeprazole 40 mg p.o. daily. 10. Amlodipine 2.5 mg p.o. daily. 11. Multivitamin. 12. Methylprednisolone 4 mg. 13. Finish Medrol Dosepak. The patient started Medrol Dosepak 2 days ago and on 03/01/18, he will take 16 mg; on 03/02/18, he will take 12 mg, and on , he will take 8 mg. DISCHARGE PLAN: Dry sterile dressing changes to both elbow and wrist with gauze , Mo wrap and tape. Ice and elevate the right arm. After postoperative day 3 , he may gently wash around the incision sites, letting water to run over the area. Do not submerge the wound. Range of motion as tolerated. Finish Medrol Dosepak; 03/01/18, take 16 mg; 03/02/18, take 12 mg; 03/03/18, take 8 mg. Resume all home medications. Medication is available for pickup at [facility]. Please call for followup appointments: Follow up with Rheumatology, Dr. Read, early next week. Follow up with Infectious Disease, Dr. Sanders, appt will be scheduled at the ID Office and follow up with Orthopedics, Dr. Corona, in 1 week. The patient may use Tylenol p.r.n. for pain control, max daily dose of Tylenol 4000 mg daily. ALBAN JOHNSTON [id number]/[facility] #: [id number] [facility]
[2018-03-01] MEDS ORDERED: methylPREDNISolone TAB* 4 MG PO SCH (07:30)
[2018-03-02] MEDS ORDERED: methylPREDNISolone TAB* 4 MG PO SCH (07:30)
[2018-03-03] MEDS ORDERED: methylPREDNISolone TAB* 4 MG PO SCH (07:30)
--- NOTE | 2018-03-05 08:57 | ED ---
Anirudh Trujillo Tiffany, scribed for Dayday Roe MD on 02/24/18 at 1345 . Upper Extremity Pain - HPI Summary HPI Summary: The patient is a 72 year old male presenting to [facility] accompanied by complains of right shoulder pain that began two weeks ago, worse since . Describes the pain as jabbing. The patient rates the pain 8/10 in severity. The most pain comes from the radial aspect of right FOREarm. Symptoms aggravated by movement. Symptoms alleviated by nothing. Patient reports right arm pain and swelling, right hand pain and swelling, insomnia. Denies tingliness , numbness, neck pain, recent trauma. Has treated with pain with aspirin [employer]ER without relief. Hx of tendonitis. Patient is taking cholesterol medication. - History of Current Complaint Chief Complaint: EDShoulderClavicleInj Stated Complaint: RT ARM PAIN Time Seen by Provider: 02/24/18 12:48 Hx Obtained From: Patient Mechanism Of Injury: Other - NO RECENT TRAUMA Onset/Duration: Started Weeks Ago - 2 weeks, Still Present, Worse Since - Timing: Constant Severity Currently: Severe - 8/10 Pain Location: Shoulder - right, Arm - right, Elbow - right, Hand - right Aggravating Factor(s): Movement Alleviating Factor(s): Nothing Associated Signs & Symptoms: Positive: Negative - Recent trauma, Other - right arm pain and swelling, right elbow pain, right hand pain and swelling, insomnia.. Negative: Numbness/Tingling, Neck Pain - Allergies/Home Medications Allergies/Adverse Reactions: Allergies Allergy/AdvReac Type Severity Reaction Status Date / Time metronidazole Allergy Severe Anaphylatic Verified 12/06/17 11:05 Shock niacin Allergy Intermediate Rash Verified 12/06/17 11:05 acetaminophen [From Ultracet] Allergy Unknown Verified 12/06/17 11:05 Reaction Details tramadol [From Ultracet] Allergy Unknown Verified 12/06/17 11:05 Reaction Details atorvastatin AdvReac Severe Muscle Ache Verified 12/06/17 11:05 Home Medications: Home Medications Warfarin TAB(*) [Coumadin TAB(*)] 1 mg PO WEEKLY 02/24/18 [History Confirmed ] PMH/Surg Hx/FS Hx/Imm Hx Previously Healthy: No Endocrine/Hematology History: Denies: Hx Anticoagulant Therapy, Hx Diabetes, Hx Sickle Cell Disease Cardiovascular History: Reports: Hx Angina, Hx Auto Implanted Cardiovert Defib, Hx Coronary Artery Disease - stents, Hx Hypercholesterolemia, Hx Hypertension - ON MEDICATION FOR, Hx Myocardial Infarction, Hx Pacemaker/ICD - 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-, Hx Valvular Heart Disease, Other Cardiovascular Problems/Disorders - IRREGULAR HEART BEAT / HX OF A-FIB Denies: Hx Congestive Heart Failure, Hx Hypotension Respiratory History: Reports: Hx Sleep Apnea - NO MACHINE FOR Denies: Hx Asthma, Hx Chronic Obstructive Pulmonary Disease (COPD), Other Respiratory Problems/Disorders GI History: Reports: Hx Gastroesophageal Reflux Disease - PRN ROLAIDS FOR- STATES WATCHES HIS DIET Denies: Other GI Disorders History: Denies: Hx Renal Disease, Other Problems/Disorders Musculoskeletal History: Reports: Hx Arthritis - BOTH KNEES, BOTH HANDS, Hx Tendonitis Sensory History: Reports: Hx Contacts or Glasses, Hx Hearing Aid Opthamlomology History: Reports: Hx Contacts or Glasses Neurological History: Reports: Hx Headaches - NONE IN A WHILE, Hx Transient Ischemic Attacks (TIA), Other Neuro Impairments/Disorders - Cancer History Hx Chemotherapy: No - Surgical History Surgery Procedure, Year, and Place: 2008 - AICD placement-[facility]. CARDIAC STENT - 1993, [place]. 1999 ATRIAL SEPTAL REPAIR, [facility]. EGD WITH CLOSED BIOPSY. [place] [facility] [place] [facility] [place]. [place] LEFT KNEE ARTHROSCOPIC SURGERY WITH WASHOUT [place] HEMOT[place] [facility] [place] [facility] [place]x Anesthesia Reactions: No - Immunization History Date of Tetanus Vaccine: 2010 Date of Influenza Vaccine: Fall 2016 Immunizations Up to Date: Yes Infectious Disease History: No Infectious Disease History: Reports: Hx Shingles Denies: Traveled Outside the [place] in Last 30 Days - Family History Known Family History: Positive: Cardiac Disease - MD - Social History Occupation: Employed Full-time - [employer] Alcohol Use: Weekly Alcohol Amount: EVERY OTHER DAY - SEVERAL DRINKS Hx Substance Use: No Substance Use Type: Reports: None Hx Tobacco Use: Yes Smoking Status (MU): Former Smoker Type: Cigarettes Amount Used/How Often: X 1 YEAR Length of Time of Smoking/Using Tobacco: 1 YEAR (1964) Have You Smoked in the Last Year: No Review of Systems Constitutional: Negative - recent trauma Negative: Fever, Chills Negative: Erythema Negative: Sore Throat Negative: Chest Pain Negative: Shortness Of Breath, Cough Negative: Abdominal Pain, Vomiting, Nausea Negative: dysuria, hematuria Musculoskeletal: Negative - neck pain Positive: Other - right shoulder pain, right arm pain and swelling, right elbow pain, right hand pain and swelling. Negative: Myalgia, Edema Negative: Rash Neurological: Negative - Dizziness, tingliness Negative: Numbness Positive: Other - Insomnia All Other Systems Reviewed And Are Negative: Yes Physical Exam - Summary Physical Exam Summary: Constitutional: Well-developed, Well-nourished, Alert. (-) Distressed Skin: Warm, Dry HENT: Normocephalic; Atraumatic Eyes: Conjunctiva normal Neck: Musculoskeletal ROM normal neck. (-) JVD, (-) Stridor, (-) Tracheal deviation Cardio: Rhythm regular, rate normal, Heart sounds normal; Intact distal pulses; The pedal pulses are 2+ and symmetric. Radial pulses are 2+ and symmetric. (-) Murmur Pulmonary/Chest wall: Effort normal. (-) Respiratory distress, (-) Wheezes, (-) Rales Abd: Soft, (-) Tenderness, (-) Distension, (-) Guarding, (-) Rebound Musculoskeletal: Right forearm pain with active passive ROM of the elbow and wist. No renetta tenderness, swelling, warmth of right upper extremity. No discoloration. Lymph: (-) Cervical adenopathy Neuro: Alert, Oriented x3 Psych: Mood and affect Normal Triage Information Reviewed: Yes Vital Signs On Initial Exam: Initial Vitals Temp Pulse Resp BP Pulse Ox 97.2 F 63 18 119/73 100 02/24/18 11:56 02/24/18 11:56 02/24/18 11:56 02/24/18 11:56 02/24/18 11:56 Vital Signs Reviewed: Yes Diagnostics - Vital Signs Vital Signs Temp Pulse Resp BP Pulse Ox 02/24/18 11:56 97.2 F 63 18 119/73 100 - Laboratory Lab Results: Lab Results 02/24/18 02/24/18 02/24/18 Range/Units 14:18 14:18 14:18 WBC 10.9 H (3.5-10.8) 10^3/ul RBC 4.08 (4.0-5.4) 10^6/ul Hgb 12.5 L (14.0-18.0) g/dl Hct 36 L (42-52) % MCV 89 (80-94) fL MCH 31 (27-31) pg MCHC 34 (31-36) g/dl RDW 13 (10.5-15) % Plt Count 330 (150-450) 10^3/ul MPV 6.9 L (7.4-10.4) um3 ESR 103 H (0-40) mm/Hr INR (Anticoag Therapy) 2.49 H (0.77-1.02) APTT 36.9 H (26.0-36.3) seconds Sodium 132 L (139-145) mmol/L Potassium 3.9 (3.5-5.0) mmol/L Chloride 99 L (101-111) mmol/L Carbon Dioxide 27 (22-32) mmol/L Anion Gap 6 (2-11) mmol/L BUN 16 (6-24) mg/dL Creatinine 0.97 (0.67-1.17) mg/dL Est GFR ( Amer) 98.4 (>60) Est GFR (Non-Af Amer) 76.5 (>60) BUN/Creatinine Ratio 16.5 (8-20) Glucose 121 H (70-100) mg/dL Calcium 9.0 (8.6-10.3) mg/dL Total Bilirubin 0.50 (0.2-1.0) mg/dL AST 16 (13-39) U/L ALT 14 (7-52) U/L Alkaline Phosphatase 45 (34-104) U/L Total Creatine Kinase 35 (10-223) U/L C-Reactive Protein 74.71 H (< 5.00) mg/L Total Protein 7.2 (6.4-8.9) g/dL Albumin 3.4 (3.2-5.2) g/dL Globulin 3.8 (2-4) g/dL Albumin/Globulin Ratio 0.9 L (1-3) Result Diagrams: 02/24/18 14:18 02/24/18 14:18 Lab Statement: Any lab studies that have been ordered have been reviewed, and results considered in the medical decision making process. - Radiology Shoulder XR Radiology Interpretation Completed By: Radiologist - Osteoarthritis, stigmata of chronic rotator cuff pathology, and calcific tendinopathy. ED Physician has reviewed this report. Elbow XR Radiology Interpretation Completed By: Radiologist - IMPRESSION: Osteoarthritis. Associated elbow joint effusion and loose bodies. Negative for fracture at the elbow or forearm. ED Physician has reviewed this report. Forearm XR Radiology Interpretation Completed By: Radiologist - Osteoarthritis. Associated elbow joint effusion and loose bodies. Negative for fracture at the elbow or forearm. ED Physician has reviewed this report. Re-Evaluation - Re-Evaluation Second Eval Re-Evaluation Time: 16:19 Change: Improved Comment: After 2 doses of pain medicaiton, pain now localizes at the right elbow , which is warm to the touch. Course/Dx - Course Course Of Treatment: 72 y/o M complains of right shoulder pain that began two weeks ago, worse since 02/17/18. Patient reports right arm pain and swelling, right hand pain and swelling, insomnia. Fluid from elbow jt is obtained and sent to lab with the assistance of Dr. Corona. Results are discussed Dr. Corona. Pt will be admitted by Dr. Corona, for a wash out tomorrow. NPO until midnight. Pt is given IV Vancomycin. Lyme disease is considered. - Diagnoses Differential Diagnosis/HQI/PQRI: Positive: Other - Myositis, tendonitis, muscle strain, do not suspect DVT Provider Diagnoses: Elbow effusion - Physician Notifications Discussed Care of Patient With: Jovani Corona Time Discussed With Above Provider: 16:22 Instructed by Provider To: Other - Dr. Corona (ortho) agrees to come in to see the patient. Discharge - Sign-Out/Discharge Documenting (check all that apply): Discharge/Admit/Transfer - admit - Discharge Plan Condition: Stable Disposition: ADMITTED TO [facility] Referrals: Ministerio Winters MD [Primary Care Provider] - The documentation as recorded by the Anirudh samson Tiffany accurately reflects the service I personally performed and the decisions made by , Dayday Roe MD.
--- NOTE | 2018-03-14 23:35 | HP ---
HISTORY AND PHYSICAL: DATE OF ADMISSION: 02/24/18 CHIEF COMPLAINT: Right arm pain. HISTORY OF PRESENT ILLNESS: Raghavendra is 72 years old. He has a 2-week history of right arm pain. Pain is worse with activity. It is relieved by not moving the arm. Initially, the pain started up in the shoulder area and more recently it has moved down to the elbow. It has become more difficult for him to use the arm. He has never had anything like this before. He denies any fevers or constitutional symptoms. The pain became so severe over the last couple of days and was not responding to Tylenol and so he came in for evaluation. PAST MEDICAL HISTORY: Coronary artery disease, he does have a stent. 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 He has AFib, he has an ICD in place. He has a history of hypertension, sleep apnea, and hyperlipidemia. PAST SURGICAL HISTORY: ICD placement, left total knee replacement, carpal tunnel surgery. MEDICATIONS: 1. Crestor. 2. Carvedilol. 3. Aspirin. 4. Amlodipine. 5. Fish oil. 6. Irbesartan. 7. Ranitidine. 8. Nitrostat. FAMILY HISTORY: He is not able to recall if family history is significant for gout or other inflammatory arthritis. SOCIAL HISTORY: He lives with his spouse. He does not smoke or drink significant alcohol. REVIEW OF SYSTEMS: A full 14-point review of systems was conducted and is negative except for the right arm pain mentioned above. He denies neck pain. He denies any neurological symptoms, fevers, or constitutional symptoms. PHYSICAL EXAMINATION GENERAL: Awake and alert, very pleasant. MUSCULOSKELETAL: The left upper arm and bilateral lower extremity exam is unremarkable. The right wrist and hand move fairly well without much pain. There are no focal masses that are palpable. The right shoulder moves reasonably well with minimal pain. The right elbow is quite painful with any movement. I cannot get him to passively flex it through an 80-degree motion arc. Pronation and supination are full with minimal pain. There is not a lot of joint line tenderness and effusion is palpable. The upper arm and forearm exams are unremarkable. SKIN: Intact. There are no rashes or lesions or erythema. DIAGNOSTIC STUDIES: X-rays of the right shoulder show some degenerative changes, significant calcific tendinitis, but otherwise negative. X-rays of the right elbow show arthritis with significant chondrocalcinosis consistent with pseudogout. Forearm x-rays were unremarkable. The visualized wrist was unremarkable. IMPRESSION: Right elbow pain for 2 weeks. I think this is most likely due to pseudogout. PLAN: I aspirated the elbow in the ER. I got 7 cc of cloudy fluid. It did not look purulent. There was a good string sign. We will send it off for cell count, Gram stain and cultures as well as crystal analysis. I will check it for fungus as well. Additionally, we will have him do serology for Lyme disease. I think there is a low chance of this being due to a bacterial infection. I think it is pseudogout, potentially Lyme disease. The result of the aspirate did come back to 70,000. Gram stain is negative. No crystals were seen. We will admit the patient to the hospital and plan for incision and drainage of the right elbow first thing in the morning. [id number]/CPS #: [id number] YURI
== END 2018-02-28 16:00 | disposition home or self-care (01) | DRG 506 ==
LOC: ED 11:52 → MED 19:45
PROVIDERS: ADMIT Orthopaedic Surgery Hand Surgery; ATTEND Orthopaedic Surgery Hand Surgery
PROC: 0R9L3ZX Drainage of Right Elbow Joint, Percutaneous Approach, Diagnostic (ICD-10-PCS; 2018-02-24)
PROC: 0R9N0ZZ Drainage of Right Wrist Joint, Open Approach (ICD-10-PCS; 2018-02-25)
PROC: 0R9L0ZZ Drainage of Right Elbow Joint, Open Approach (ICD-10-PCS; principal; 2018-02-25 07:30)
DX: M11.221 Other chondrocalcinosis, right elbow (principal); M11.231 Other chondrocalcinosis, right wrist; I48.91 Unspecified atrial fibrillation; I25.10 Atherosclerotic heart disease of native coronary artery without angina pectoris; K57.90 Diverticulosis of intestine, part unspecified, without perforation or abscess without bleeding; M17.12 Unilateral primary osteoarthritis, left knee; M19.011 Primary osteoarthritis, right shoulder; M19.021 Primary osteoarthritis, right elbow; G47.33 Obstructive sleep apnea (adult) (pediatric); E78.5 Hyperlipidemia, unspecified; Z96.653 Presence of artificial knee joint, bilateral; Z86.73 Personal history of transient ischemic attack (TIA), and cerebral infarction without residual deficits; Z95.810 Presence of automatic (implantable) cardiac defibrillator; Z79.1 Long term (current) use of non-steroidal anti-inflammatories (NSAID); Z79.01 Long term (current) use of anticoagulants; Z79.899 Other long term (current) drug therapy; Z88.8 Allergy status to other drugs, medicaments and biological substances; Z82.61 Family history of arthritis; Z79.82 Long term (current) use of aspirin
CPT/HCPCS: 36415; 80048; 80053; 80202; 82550; 82565; 82728; 82945; 83970; 83986; 84520; 84550; 85027; 85048; 85610; 85652; 85730; 86038; 86140; 86200; 86431; 86617; 86618; 87070; 87073; 87102; 87205; 87476; 87640; 87641; 87798; 88304; 88312; 88313; 89051; 89060; 99284; A9270-GY; G8978-GP-CI; G8979-GP-CI; G8980-GP-CI; G8987-GO-CK; G8988-GO-CH; J2250; J2270; J2543; J2704; J3010; J3370; J7509

== ENCOUNTER 2018-10-27 09:31 | Emergency (ER) | payer MEDICARE, OTHER ==
[2018-10-27] MEDS ORDERED: Morphine VIAL* 4 MG/ML VIAL (1 ml vial) IV ONE (10:03)
[2018-10-27] MEDS ORDERED: Ondansetron INJ* 2 MG/ML VIAL IV ONE (10:03)
--- NOTE | 2018-10-27 10:06 | ED ---
HPI Chest Pain - HPI Summary HPI Summary: The patient is a 73 y/o M presenting to [facility] with a chief complaint of a constant deep, sharp, pressure chest pain that starts in the right lateral region, extends across the chest, and radiates to his back starting last night. The pain is currently rated 8/10 in severity. He is concerned because he's been experiencing severe SOB especially with deep breathing. He states he was cleaning out a car yesterday but isn't sure if he pulled a muscle, although there is tenderness in the right chest wall. He denies any trauma. He takes Coumadin due to TIAs and Carvedilol for HTN. - History of Current Complaint Chief Complaint: EDChestWallPain Time Seen by Provider: 10/27/18 09:52 Hx Obtained From: Patient Onset/Duration: Started Hours Ago - last night, Still Present Timing: Constant, Lasting Hours Initial Severity: Moderate Current Severity: Moderate Pain Intensity: 8 Pain Scale Used: 0-10 Numeric Chest Pain Location: Right Lateral Chest Pain Radiates: Yes Chest Pain Radiates To:: Back, Other - across chest to left side Character: Pressure/Squeezing, Sharp/Stabbing, Other: - deep Aggravating Factor(s): Nothing Alleviating Factor(s): Nothing Associated Signs and Symptoms: Positive: Shortness of Breath, Other: - tenderness in right chest wall - Additional Pertinent History Primary Care Physician: [id number] - Allergy/Home Medications Allergies/Adverse Reactions: Allergies Allergy/AdvReac Type Severity Reaction Status Date / Time metronidazole Allergy Severe Anaphylatic Verified 10/27/18 09:39 Shock niacin Allergy Intermediate Rash Verified 10/27/18 09:39 tramadol [From Ultracet] Allergy Unknown Verified 10/27/18 09:39 Reaction Details atorvastatin AdvReac Severe Muscle Ache Verified 10/27/18 09:39 Home Medications: Home Medications Amitriptyline TAB* [Elavil TAB*] 1 tab PO DAILY 10/27/18 [History Confirmed ] PMH/Surg Hx/FS Hx/Imm Hx Endocrine/Hematology History: Denies: Hx Anticoagulant Therapy, Hx Diabetes, Hx Sickle Cell Disease Cardiovascular History: Reports: Hx Angina, Hx Auto Implanted Cardiovert Defib, Hx Coronary Artery Disease - stents, Hx Hypercholesterolemia, Hx Hypertension - ON MEDICATION FOR, Hx Myocardial Infarction, Hx Pacemaker/ICD - 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-, Hx Valvular Heart Disease, Other Cardiovascular Problems/Disorders - IRREGULAR HEART BEAT / HX OF A-FIB Denies: Hx Congestive Heart Failure, Hx Hypotension Respiratory History: Reports: Hx Sleep Apnea - NO MACHINE FOR Denies: Hx Asthma, Hx Chronic Obstructive Pulmonary Disease (COPD), Hx Seasonal Allergies, Other Respiratory Problems/Disorders GI History: Reports: Hx Gastroesophageal Reflux Disease - PRN ROLAIDS FOR- STATES WATCHES HIS DIET Denies: Other GI Disorders History: Denies: Hx Renal Disease, Other Problems/Disorders Musculoskeletal History: Reports: Hx Arthritis - BOTH KNEES, BOTH HANDS, Hx Tendonitis, Other Musculoskeletal History - Bilateral knee replacements Sensory History: Reports: Hx Contacts or Glasses, Hx Hearing Aid Opthamlomology History: Reports: Hx Contacts or Glasses Neurological History: Reports: Hx Headaches - NONE IN A WHILE, Hx Transient Ischemic Attacks (TIA), Other Neuro Impairments/Disorders - Cancer History Hx Chemotherapy: No - Surgical History Surgery Procedure, Year, and Place: 2008 - AICD placement-[facility]. CARDIAC STENT - 1993, [place]. 1999 ATRIAL SEPTAL REPAIR, EGD WITH CLOSED BIOPSY. 2012 RIGHT TOTAL K[place]EE [place]PLACEMENT, [facility] [place]. 2013 LEFT [place]PLACEMENT, [facility] [place]. 10/2014 LEFT KNEE ARTHROSCOPIC SURGERY WITH WASHOUT OF HEMOTOMA AND SYNOVIAL BIOPSY, [facility] [place]. 06/2015 RIGHT CARPAL TUNNEL RELEASE, [facility] [place] Hx Anesthesia Reactions: No - Immunization History Date of Tetanus Vaccine: 2010 Date of Influenza Vaccine: Fall 2016 Infectious Disease History: No Infectious Disease History: Reports: Hx Shingles Denies: Traveled Outside the [place] in Last 30 Days - Family History Known Family History: Positive: Cardiac Disease - [place] - Social History Alcohol Use: Weekly Alcohol Amount: EVERY OTHER DAY - SEVERAL DRINKS Hx Substance Use: No Substance Use Type: Reports: None Hx Tobacco Use: Yes Smoking Status (MU): Former Smoker Type: Cigarettes Amount Used/How Often: X 1 YEAR Length of Time of Smoking/Using Tobacco: 1 YEAR (1964) Have You Smoked in the Last Year: No Review of Systems Negative: Fever, Chills Negative: Erythema Negative: Sore Throat Positive: Chest Pain - deep pressure starting in right lateral chest radiating across the chest to his back Positive: Shortness Of Breath - occurs with deep breathing. Negative: Cough Negative: Abdominal Pain, Vomiting, Nausea Negative: dysuria, hematuria Positive: Myalgia - tenderness in right chest wall. Negative: Edema Negative: Rash Neurological: Other - NEGATIVE: dizziness All Other Systems Reviewed And Are Negative: Yes Physical Exam - Summary Physical Exam Summary: Constitutional: Well-developed, Well-nourished, Alert. (-) Distressed Skin: Warm, Dry HENT: Normocephalic; Atraumatic Eyes: Conjunctiva normal Neck: Musculoskeletal ROM normal neck. (-) JVD, (-) Stridor, (-) Tracheal deviation Cardio: Rhythm regular, rate normal, Heart sounds normal; Intact distal pulses; The pedal pulses are 2+ and symmetric. Radial pulses are 2+ and symmetric. (-) Murmur Pulmonary/Chest wall: Right sided chest pain and tenderness that is reproducible with motions of sitting forward and lying back. Effort normal. (-) Respiratory distress, (-) Wheezes, (-) Rales Abd: Soft, (-) epigastric tenderness, (-) Distension, (-) Guarding, (-) Rebound Musculoskeletal: (-) Edema Lymph: (-) Cervical adenopathy Neuro: Alert, Oriented x3 Psych: Mood and affect Normal Triage Information Reviewed: Yes Vital Signs On Initial Exam: Initial Vitals Temp Pulse Resp BP Pulse Ox 96.7 F 77 24 115/77 100 10/27/18 09:44 10/27/18 09:44 10/27/18 09:44 10/27/18 09:44 10/27/18 09:44 Vital Signs Reviewed: Yes Diagnostics - Vital Signs Vital Signs Temp Pulse Resp BP Pulse Ox 10/27/18 09:44 96.7 F 77 24 115/77 100 - Laboratory Result Diagrams: 10/27/18 10:08 10/27/18 10:02 Lab Statement: Any lab studies that have been ordered have been reviewed, and results considered in the medical decision making process. - Radiology CXR Radiology Interpretation Completed By: Radiologist Summary of Radiographic Findings: No radiographic evidence for acute cardiopulmonary abnormality on this portable chest x-ray. ED physician has reviewed this report. - CT Chest/Thorax CTA CT Interpretation Completed By: Radiologist Summary of CT Findings: 1. No CT of evidence of pulmonary embolism or other acute cardiothoracic abnormality. 2. Chronic, degenerative and iatrogenic findings described in the body the report. ED physician has reviewed this report. - EKG 0959 Cardiac Rate: NL - 72 BPM EKG Rhythm: Sinus Rhythm Summary of EKG Findings: No STEMI. Re-Evaluation - Re-Evaluation First Eval Re-Evaluation Time: 10:25 Change: Improved Comment: He is feeling better after medication but still has pain. We will do a CTA Chest. Second Eval Re-Evaluation Time: 12:27 Change: Improved Comment: He states his pain has improved. Third Eval Re-Evaluation Time: 14:25 Change: Improved Comment: Upon re-examination, the patient's pain has improved. His pain is reproducible with movement. His abd is completely nontender, and there is no concern for cholecystitis. We discussed discharge home. Chest Pain Course/Dx - Course Course Of Treatment: The patient is a 73 y/o M presenting to [facility] with a chief complaint of a deep pressure chest pain that starts in the right lateral region , extends across the chest, and radiates to his back starting last night. Hes been experiencing severe SOB especially with deep breathing. He states he was cleaning out a car yesterday but isn't sure if he pulled a muscle, although there is tenderness in the right chest wall. He denies any trauma. He takes Coumadin due to TIAs and Carvedilol for HTN. Upon physical exam, the patient exhibits right sided chest pain and tenderness that is reproducible with motions of sitting forward and lying back. In the ED course, the patient was administered Zofran, Morphine, Visipaque (for CTA), and Valium. Blood work, EKG , CXR, and CTA Chest/Thorax are unremarkable. At re-evaluation at 14:25, the patients pain has improved but is reproducible with movement. The abd is completely nontender, and there is no concern for cholecystitis at this time. He is diagnosed with musculoskeletal CP. He will be discharged home with prescription for Lidocaine patch and Percocet, education materials, and follow up with PCP in 2-3 days. He agrees with this plan and understands the need for return to the ED for any new or worsening symptoms. - Diagnoses Provider Diagnoses: Musculoskeletal chest pain Discharge - Sign-Out/Discharge Documenting (check all that apply): Patient Departure - Patient will be discharged home. - Discharge Plan Condition: Stable Disposition: HOME Prescriptions: Lidocaine PATCH 5%* [Lidoderm 5% Patch*] 1 patch TRANSDERM DAILY #7 patch oxyCODONE/Acetamin 5/325 MG* [Percocet 5/325 TAB*] 1 tab PO Q4H PRN #12 tab MDD 6 PRN Reason: Pain - Moderate To Severe Patient Education Materials: Chest Pain (ED) Referrals: Ministerio Winters MD [Primary Care Provider] - 3 Days Additional Instructions: Please take medications as prescribed. Follow up with your primary care provider in 2-3 days. Return to the emergency department for any changing or worsening symptoms. - Billing Disposition and Condition Condition: STABLE Disposition: Home - Attestation Statements Document Initiated by Orestesibe: Yes Documenting Scribe: Keisha Putnam Provider For Whom Fernandez is Documenting (Include Credential): Dr. Dayday Roe MD Scribe Attestation: Keisha Trujillo scribed for Dr. Dayday Roe MD on 10/27/18 at 1429. Scribe Documentation Reviewed: Yes Provider Attestation: The documentation as recorded by the Keisha samson accurately reflects the service I personally performed and the decisions made by me, Dr. Dayday Roe MD Status of Scribe Document: Viewed
[2018-10-27 10:28] LABS: Albumin 4.2 g/dL (3.2-5.2); Albumin/Globulin Ratio 1.4 (1-3); Calcium 9.5 mg/dL (8.6-10.3); EGFR Non-African American 59.7 (>60); Total Bilirubin 0.8 mg/dL (0.2-1.0); Total Protein 7.2 g/dL (6.4-8.9)
[2018-10-27 10:34] LABS: ABS Basophils 0.1 10^3/ul (0-0.2); ABS Eosinophils 0.1 10^3/ul (0-0.6); ABS Lymphocytes 1.3 10^3/ul (1.0-4.8); ABS Monocytes 0.6 10^3/ul (0-0.8); ABS Nucleated RBC 0 10^3/ul; Eosinophil % 1.8 %; Hematocrit 44 % (42-52); Hemoglobin 14.9 g/dl (14.0-18.0); Lymphocyte % 15.8 %; Mean Corpuscular HGB Conc 34 g/dl (31-36); Mean Corpuscular Hemoglobin 31 pg (27-31); Mean Corpuscular Volume 91 fL (80-94); Mean Platelet Volume 7.2 fL (7.4-10.4); Nucleated Red Blood Cells % 0; Platelet Count 248 10^3/ul (150-450); Red Blood Count 4.79 10^6/ul (4.00-5.40); Red Cell Distribution Width 14 % (10.5-15)
[2018-10-27] MEDS ORDERED: Diazepam SYRINGE* 5 MG/ML 2 ML SYRINGE (10 MG total) IV ONE (10:56)
[2018-10-27] MEDS ORDERED: Diazepam TAB(*) 5 MG PO ONE (11:15)
[2018-10-27] MEDS ORDERED: Iodixanol* (CONTRAST) 320 MG/ML 100 ML SDV IV ONE (11:57)
[2018-10-27 14:41] VITALS: BP 140/86
== END 2018-10-27 14:40 | disposition home or self-care (01) ==
LOC: ED 09:31
DX: R07.89 Other chest pain (principal); I25.119 Atherosclerotic heart disease of native coronary artery with unspecified angina pectoris; I10 Essential (primary) hypertension; Z95.1 Presence of aortocoronary bypass graft; Z95.810 Presence of automatic (implantable) cardiac defibrillator; Z96.653 Presence of artificial knee joint, bilateral; Z82.49 Family history of ischemic heart disease and other diseases of the circulatory system; Z87.891 Personal history of nicotine dependence
CPT/HCPCS: 36415; 71045; 71275; 80053; 83605; 84484; 85025; 93005; 96374; 96375; 99282; A9270-GY; J2270; J2405; J3360; Q9967

== ENCOUNTER 2019-11-14 16:54 | Emergency (ER) | payer MEDICARE, OTHER ==
[2019-11-14] MEDS ORDERED: Aspirin 81 mg CHEW TAB* 81 MG TAB.CHEW PO ONE (17:11)
[2019-11-14 17:24] LABS: ABS Eosinophils 0.2 10^3/ul (0-0.6); ABS Lymphocytes 1.8 10^3/ul (1.0-4.8); ABS Monocytes 0.7 10^3/ul (0-0.8); ABS Neutrophils 4.1 10^3/ul (1.5-7.7); Eosinophil % 3.1 %; Hematocrit 45 % (42-52); Hemoglobin 15.2 g/dL (14.0-18.0); Lymphocyte % 26.2 %; Mean Corpuscular HGB Conc 34 g/dL (31-36); Mean Corpuscular Hemoglobin 31 pg (27-31); Mean Corpuscular Volume 92 fL (80-94); Mean Platelet Volume 7.2 fL (7.4-10.4); Nucleated Red Blood Cells % 0.1; Platelet Count 255 10^3/uL (150-450); Red Blood Count 4.86 10^6 /uL (4.18-5.48); Red Cell Distribution Width 13 % (10-15); White Blood Count 6.8 10^3/uL (3.5-10.8)
--- NOTE | 2019-11-14 17:24 | ED ---
Shortness of Breath - HPI Summary HPI Summary: Patient is a 74 y/o M presenting to the ED via EMS for a chief complaint of shortness of breath. Per EMS, patient had a brief episode of SOB around 08:30 on 11/14/19 that lasted for 3-4 hours after talking a short walk. Patient went to his PCP, Dr. Winters, who called EMS. The shortness of breath has since resolved. He describes an abdominal tightness" and a sore throat on 11/10/19 that has since resolved. Patient denies nausea, diaphoresis, chest pain, or bilateral LE edema or pain. He denies his current symptoms feel like a prior MO he has had in the past. PMHx is significant for 3 MO and atrial fibrillation. Last cardiac stress test was one year ago and last echocardiogram was 3 weeks ago. He denies history of blood clots, but notes a 2 hour flight during the holidays. Patient denies tobacco or drug use, but admits alcohol use of 1-2 mixed drinks a night. He takes 81 mg aspirin daily. He sees Dr. Abraham. Allergies noted. Medications reviewed. - History of Current Complaint Chief Complaint: EDShortnessOfBreath Time Seen by Provider: 11/14/19 17:10 Hx Obtained From: Patient Onset/Duration: Sudden Onset, Resolved Dyspnea At: Exertion Aggravating Factors: Nothing Alleviating Factors: Spontaneous Resolution - Allergy/Home Medications Allergies/Adverse Reactions: Allergies Allergy/AdvReac Type Severity Reaction Status Date / Time metronidazole Allergy Severe Anaphylatic Verified 11/14/19 17:19 Shock niacin Allergy Intermediate Rash Verified 11/14/19 17:19 tramadol [From Ultracet] Allergy Unknown Verified 11/14/19 17:19 Reaction Details atorvastatin AdvReac Severe Muscle Ache Verified 11/14/19 17:19 Home Medications: Home Medications Aspirin EC TAB* [Ecotrin EC Low Dose 81 MG*] 81 mg PO DAILY 11/14/19 [History Confirmed 11/14/19] Carvedilol TAB* [Coreg TAB*] 12.5 mg PO BID 11/14/19 [History Confirmed 11/14/19 ] Multivitamins/Minerals TAB* [Theragran/minerals TAB*] 1 tab PO DAILY 11/14/19 [ History Confirmed 11/14/19] Nitroglycerin TAB 0.4 MG* 0.4 mg SL Q5M PRN 11/14/19 [History Confirmed 11/14/19 ] Omeprazole CAP (NF) [Prilosec CAP* 20 MG] 20 mg PO DAILY 11/14/19 [History Confirmed 11/14/19] PMH/Surg Hx/FS Hx/Imm Hx Previously Healthy: Yes Endocrine/Hematology History: Denies: Hx Anticoagulant Therapy, Hx Diabetes, Hx Sickle Cell Disease Cardiovascular History: Reports: Hx Angina, Hx Auto Implanted Cardiovert Defib, Hx Coronary Artery Disease - stents, Hx Hypercholesterolemia, Hx Hypertension - ON MEDICATION FOR, Hx Myocardial Infarction, Hx Pacemaker/ICD - [facility] ICD - NO MRIs, Hx Valvular Heart Disease, Other Cardiovascular Problems/Disorders - IRREGULAR HEART BEAT / HX OF A-FIB Denies: Hx Congestive Heart Failure, Hx Hypotension Respiratory History: Reports: Hx Sleep Apnea - NO MACHINE FOR Denies: Hx Asthma, Hx Chronic Obstructive Pulmonary Disease (COPD), Hx Seasonal Allergies, Other Respiratory Problems/Disorders GI History: Reports: Hx Gastroesophageal Reflux Disease - PRN ROLAIDS FOR- STATES WATCHES HIS DIET Denies: Other GI Disorders History: Denies: Hx Renal Disease, Other Problems/Disorders Musculoskeletal History: Reports: Hx Arthritis - BOTH KNEES, BOTH HANDS, Hx Tendonitis, Other Musculoskeletal History - Bilateral knee replacements Sensory History: Reports: Hx Contacts or Glasses, Hx Hearing Aid Denies: Hx Legally Blind, Hx Deafness Opthamlomology History: Reports: Hx Contacts or Glasses Denies: Hx Legally Blind EENT History: Denies: Hx Deafness Neurological History: Reports: Hx Headaches - NONE IN A WHILE, Hx Transient Ischemic Attacks (TIA), Other Neuro Impairments/Disorders - Cancer History Hx Chemotherapy: No - Surgical History Surgical History: Yes Surgery Procedure, Year, and Place: / & 04/18/[address] [facility] - ICD/ PACEMAKER - NO MRIs. CARDIAC STENT- 1993, [place]. 1999 ATRIAL SEPTAL REPAIR, [facility]. EGD WITH CLOSED BIOPSY. 2012 RIGHT TOTAL KNEE REPLAC[place], [facility] [place]. [place] LEFT TOTAL KNEE REPLACEMENT, [facility] [place]. 10/2014 LEFT KNEE ARTHROSCOPIC SURGERY WITH WASHOUT OF HEMOTOMA AND SYNOVIAL BIOPSY, [facility] [place]. 06/2015 RIGHT CARPAL TUNNEL RELEASE, [facility] [place] Hx Anesthesia Reactions: No - Immunization History Date of Tetanus Vaccine: 2010 Date of Influenza Vaccine: Fall 2016 Infectious Disease History: No Infectious Disease History: Reports: Hx Shingles Denies: Traveled Outside the [place] in Last 30 Days - Family History Known Family History: Positive: Cardiac Disease - [place] - Social History Occupation: Retired Lives: With Family Alcohol Use: Daily Alcohol Amount: EVERY OTHER DAY - SEVERAL DRINKS Hx Substance Use: No Substance Use Type: Reports: None Hx Tobacco Use: Yes Smoking Status (MU): Former Smoker Type: Cigarettes Amount Used/How Often: X 1 YEAR Length of Time of Smoking/Using Tobacco: 1 YEAR (1964) Have You Smoked in the Last Year: No Review of Systems Negative: Skin Diaphoresis Positive: Sore Throat - Resolved Negative: Chest Pain Positive: Shortness Of Breath - Resolved Negative: Nausea Negative: Myalgia - Bilateral LE, Edema - Bilateral LE All Other Systems Reviewed And Are Negative: Yes Physical Exam - Summary Physical Exam Summary: Constitutional: Well-developed, Well-nourished, Alert. (-) Distressed Skin: Warm, Dry HENT: Normocephalic; Atraumatic Eyes: Conjunctiva normal Neck: Musculoskeletal ROM normal neck. (-) JVD, (-) Stridor, (-) Tracheal deviation Cardio: Rhythm regular, rate normal, Heart sounds normal; Intact distal pulses; Radial pulses are 2+ and symmetric. (-) Murmur Pulmonary/Chest wall: Effort normal. (-) Respiratory distress, (-) Wheezes, (-) Rales Abd: Soft, (-) tenderness, (-) Distension, (-) Guarding, (-) Rebound Musculoskeletal: (-) Edema Lymph: (-) Cervical adenopathy Neuro: Alert, Oriented x3 Psych: Mood and affect Normal Triage Information Reviewed: Yes Vital Signs On Initial Exam: Initial Vitals Temp Pulse Resp BP Pulse Ox 97.8 F 59 16 159/103 97 11/14/19 17:15 11/14/19 17:15 11/14/19 17:15 11/14/19 17:15 11/14/19 17:15 Vital Signs Reviewed: Yes Procedures - Sedation Patient Received Moderate/Deep Sedation with Procedure: No Diagnostics - Vital Signs Vital Signs Temp Pulse Resp BP Pulse Ox 11/14/19 17:15 97.8 F 59 16 159/103 97 - Laboratory Result Diagrams: 11/14/19 17:19 11/14/19 17:19 Lab Statement: Any lab studies that have been ordered have been reviewed, and results considered in the medical decision making process. - Radiology Chest X-ray Radiology Interpretation Completed By: Radiologist Summary of Radiographic Findings: Chest X-ray IMPRESSION: NO EVIDENCE FOR ACTIVE CARDIOPULMONARY DISEASE. Reviewed by Dr. Whelan. - EKG 17:20 Cardiac Rate: NL - 60 BPM EKG Rhythm: Sinus Rhythm ST Segment: Normal Ectopy: None EKG Comparison: No Significant Change Summary of EKG Findings: EKG at 17:20 shows normal sinus rhythm with 60 BPM, T wave inversions in V4-V6 and aVL, ST elevation in lead I. Unchanged from prior EKG. Reviewed and interpreted by Dr. Whelan. Course/Dx - Course Course Of Treatment: Patient is here roughly 8 hours after having an episode of exertional shortness of breath. Patient had no chest pain without did have this vague abdominal pain. Should symptoms resolved and is overall well- appearing. Patient had an EKG which showed no changes from his prior. His story is not consistent with PE and has a well score of 0. Patient is not consistent with aortic dissection as well. Patient had chest x-ray which was grossly unremarkable. Patient had a troponin which was negative. Patient's troponin would've been +8 hours after symptom onset this is cardiac in nature. Patient was encouraged to call his city director in follow-up as soon as possible. - Diagnoses Provider Diagnoses: Exertional shortness of breath Discharge ED - Sign-Out/Discharge Documenting (check all that apply): Patient Departure - Discharge - Discharge Plan Condition: Stable Disposition: HOME Patient Education Materials: Shortness of Breath (ED) Referrals: Ministerio Winters MD [Primary Care Provider] - Additional Instructions: PLEASE RETURN TO EMERGENCY DEPARTMENT FOR RECURRENT CHEST PAIN, TROUBLE BREATHING, OR ANY NEW OR WORSENING SYMPTOMS. Please follow up with your primary care physician. Follow up with Dr. Abraham. Please make all follow-ups in 1-3 days unless I advise you otherwise. Continue to take your aspirin and medications. - Billing Disposition and Condition Condition: STABLE Disposition: Home - Attestation Statements Document Initiated by Scribe: Yes Documenting Scribe: Theresa Velazco Provider For Whom Scribe is Documenting (Include Credential): Pasha Whelan MD Scribe Attestation: ITheresa, scribed for Pasha Whelan MD on 11/14/19 at 1945. Scribe Documentation Reviewed: Yes Provider Attestation: The documentation as recorded by the scribe, Theresa Velazco accurately reflects the service I personally performed and the decisions made by me, Pasha Whelan MD Status of Scribe Document: Viewed
[2019-11-14 17:41] LABS: Albumin 4.1 g/dL (3.2-5.2); Albumin/Globulin Ratio 1.3 (1-3); BUN/Creatinine Ratio 14.7 (8-20); EGFR African American 86.9 (>60); EGFR Non-African American 71.8 (>60); Globulin 3.2 g/dL (2-4); Potassium 3.8 mmol/L (3.5-5.0); Total Bilirubin 0.6 mg/dL (0.2-1.0); Total Protein 7.3 g/dL (6.4-8.9)
[2019-11-14 17:43] LABS: Troponin I 0.01 ng/mL (<0.03)
[2019-11-14 18:48] VITALS: BP 156/96
== END 2019-11-14 18:47 | disposition home or self-care (01) ==
LOC: ED 16:54
DX: R06.02 Shortness of breath (principal); I48.91 Unspecified atrial fibrillation; I25.2 Old myocardial infarction; I25.10 Atherosclerotic heart disease of native coronary artery without angina pectoris; E78.00 Pure hypercholesterolemia, unspecified; I10 Essential (primary) hypertension; K21.9 Gastro-esophageal reflux disease without esophagitis; Z86.73 Personal history of transient ischemic attack (TIA), and cerebral infarction without residual deficits; Z95.810 Presence of automatic (implantable) cardiac defibrillator; Z96.653 Presence of artificial knee joint, bilateral; Z87.891 Personal history of nicotine dependence; Z79.82 Long term (current) use of aspirin; Z79.899 Other long term (current) drug therapy; Z88.1 Allergy status to other antibiotic agents; Z88.5 Allergy status to narcotic agent; Z88.8 Allergy status to other drugs, medicaments and biological substances
CPT/HCPCS: 36415; 71046; 80053; 84484; 85025; 93005; 99283; A9270-GY

== ENCOUNTER 2021-03-22 14:58 | Inpatient (IN) ==
[2021-03-22] MEDS ORDERED: NS 0.9% 1000 ml BAG 1,000 ML IV ONE (15:46)
[2021-03-22 16:46] LABS: ABS Lymphocytes 0.6 10^3/ul (1.0-4.8); ABS Monocytes 0.6 10^3/ul (0-0.8); ABS Neutrophils 3.1 10^3/ul (1.5-7.7); Eosinophil % 0.2 %; Hematocrit 42 % (42-52); Hemoglobin 14.3 g/dL (14.0-18.0); Lymphocyte % 14.6 %; Mean Corpuscular HGB Conc 34 g/dL (31-36); Mean Corpuscular Hemoglobin 32 pg (27-31); Mean Corpuscular Volume 93 fL (80-94); Mean Platelet Volume 7.7 fL (7.4-10.4); Nucleated Red Blood Cells % 0.1; Platelet Count 174 10^3/uL (150-450); Red Blood Count 4.48 10^6 /uL (4.18-5.48); Red Cell Distribution Width 13 % (10-15); White Blood Count 4.4 10^3/uL (3.5-10.8)
[2021-03-22 17:04] LABS: Troponin I 0.01 ng/mL (<0.03)
[2021-03-22 17:05] LABS: Activated Partial Thrombo Time 32.7 seconds (26.0-38.0); INR 1.68 (0.82-1.09)
[2021-03-22 17:14] LABS: Albumin/Globulin Ratio 1.4 (1-3); Calcium 8.8 mg/dL (8.6-10.3); EGFR African American 82.6 (>60); EGFR Non-African American 68.3 (>60); Globulin 2.9 g/dL (2-4); Potassium 4.1 mmol/L (3.5-5.0); Total Bilirubin 0.6 mg/dL (0.2-1.0); Total Protein 6.9 g/dL (6.4-8.9)
[2021-03-22 23:00] LABS: Urine Appearance Clear; Urine Bilirubin Negative (Negative); Urine Blood 1+ (Negative); Urine Color Straw; Urine Glucose Negative (Negative); Urine Ketones Trace (Negative); Urine Nitrite Negative (Negative); Urine Protein Negative (Negative); Urine Specific Gravity 1.008 (1.002-1.030); Urine Urobilinogen Negative (Negative)
[2021-03-22 23:13] LABS: Urine Bacteria Absent (Absent); Urine Red Blood Cell Trace(0-2/hpf) (Absent); Urine White Blood Cell Absent (Absent)
[2021-03-23 07:41] LABS: Hematocrit 43 % (42-52); Mean Corpuscular HGB Conc 35 g/dL (31-36); Mean Corpuscular Hemoglobin 32 pg (27-31); Mean Corpuscular Volume 93 fL (80-94); Mean Platelet Volume 7.7 fL (7.4-10.4); Platelet Count 164 10^3/uL (150-450); Red Blood Count 4.62 10^6 /uL (4.18-5.48); Red Cell Distribution Width 13 % (10-15); White Blood Count 4.1 10^3/uL (3.5-10.8)
[2021-03-23 07:49] LABS: Activated Partial Thrombo Time 32.1 seconds (26.0-38.0); INR 1.49 (0.82-1.09)
[2021-03-23 07:50] LABS: Calcium 8.6 mg/dL (8.6-10.3); EGFR African American 79.2 (>60); EGFR Non-African American 65.4 (>60); Magnesium 1.9 mg/dL (1.9-2.7); Potassium 3.9 mmol/L (3.5-5.0)
[2021-03-23 08:51] LABS: Troponin I 0.02 ng/mL (<0.03)
[2021-03-23] MEDS ORDERED: Heparin DRIP 25,000 UNITS BAG 25,000 UNITS/500 ML BAG IV SCH (09:15)
[2021-03-23] MEDS ORDERED: Perflutren Lipid Microsphere 3 ML VIAL ONE (09:30)
[2021-03-23] MEDS ORDERED: Heparin 5000 UNITS/ML 1 mL VIAL IV SCH (10:00)
[2021-03-23] MEDS: Aspirin EC 81 mg TAB.EC (enteric coated) PO SCH (10:00)
[2021-03-23] MEDS: Multivitamins/Minerals TAB PO SCH (10:00)
[2021-03-23 10:23] LABS: C Reactive Protein 78.38 mg/L (<8.01)
[2021-03-23 10:54] LABS: ABS Lymphocytes 0.4 10^3/ul (1.0-4.8); ABS Monocytes 0.4 10^3/ul (0-0.8); ABS Neutrophils 2.9 10^3/ul (1.5-7.7); Eosinophil % 0.1 %; Hematocrit 47 % (42-52); Hemoglobin 15.9 g/dL (14.0-18.0); Mean Corpuscular HGB Conc 34 g/dL (31-36); Mean Corpuscular Hemoglobin 32 pg (27-31); Mean Corpuscular Volume 94 fL (80-94); Mean Platelet Volume 7.8 fL (7.4-10.4); Nucleated Red Blood Cells % 0.1; Platelet Count 151 10^3/uL (150-450); Red Blood Count 5.02 10^6 /uL (4.18-5.48); Red Cell Distribution Width 13 % (10-15); White Blood Count 3.7 10^3/uL (3.5-10.8)
[2021-03-23 11:00] LABS: EGFR African American 82.6 (>60); EGFR Non-African American 68.3 (>60)
[2021-03-23 14:59] LABS: Influenza A Molecular Negative (Negative); Influenza B Molecular Negative (Negative)
[2021-03-23 15:02] LABS: TSH Ultra Thyroid Stim Horm 0.92 mcIU/mL (0.34-5.60)
[2021-03-23 15:06] LABS: Free T4 0.66 ng/dL (0.61-1.12)
[2021-03-23] MEDS ORDERED: Calcium Carb (TUMS) 500 mg CHEW TAB PO ONE (21:47)
[2021-03-24 03:43] LABS: ABS Lymphocytes 0.8 10^3/ul (1.0-4.8); ABS Monocytes 0.5 10^3/ul (0-0.8); ABS Neutrophils 2.5 10^3/ul (1.5-7.7); Eosinophil % 0.2 %; Hematocrit 42 % (42-52); Hemoglobin 14.4 g/dL (14.0-18.0); Lymphocyte % 21.5 %; Mean Corpuscular HGB Conc 34 g/dL (31-36); Mean Corpuscular Hemoglobin 32 pg (27-31); Mean Corpuscular Volume 94 fL (80-94); Mean Platelet Volume 7.6 fL (7.4-10.4); Nucleated Red Blood Cells % 0.1; Platelet Count 153 10^3/uL (150-450); Red Blood Count 4.46 10^6 /uL (4.18-5.48); Red Cell Distribution Width 13 % (10-15); White Blood Count 3.8 10^3/uL (3.5-10.8)
[2021-03-24 03:59] LABS: Albumin 3.5 g/dL (3.2-5.2); Albumin/Globulin Ratio 1.3 (1-3); Calcium 8.3 mg/dL (8.6-10.3); EGFR African American 81.7 (>60); EGFR Non-African American 67.6 (>60); Globulin 2.8 g/dL (2-4); Potassium 4.1 mmol/L (3.5-5.0); Total Bilirubin 0.5 mg/dL (0.2-1.0); Total Protein 6.3 g/dL (6.4-8.9)
[2021-03-24] MEDS: Multivitamins/Minerals TAB PO SCH (10:18)
[2021-03-24] MEDS: Aspirin EC 81 mg TAB.EC (enteric coated) PO SCH (10:18)
[2021-03-24 12:25] LABS: HIV 4th Generation Nonreactive (Nonreactive)
[2021-03-25 06:36] LABS: ABS Lymphocytes 0.8 10^3/ul (1.0-4.8); ABS Monocytes 0.5 10^3/ul (0-0.8); ABS Neutrophils 2.5 10^3/ul (1.5-7.7); Eosinophil % 0.4 %; Hematocrit 41 % (42-52); Hemoglobin 14.1 g/dL (14.0-18.0); Lymphocyte % 21.3 %; Mean Corpuscular HGB Conc 35 g/dL (31-36); Mean Corpuscular Hemoglobin 32 pg (27-31); Mean Corpuscular Volume 92 fL (80-94); Mean Platelet Volume 7.8 fL (7.4-10.4); Platelet Count 143 10^3/uL (150-450); Red Blood Count 4.42 10^6 /uL (4.18-5.48); Red Cell Distribution Width 13 % (10-15); White Blood Count 3.9 10^3/uL (3.5-10.8)
[2021-03-25 06:46] LABS: Activated Partial Thrombo Time 30.2 seconds (26.0-38.0)
[2021-03-25 06:53] LABS: Albumin 3.4 g/dL (3.2-5.2); Calcium 8.1 mg/dL (8.6-10.3); Potassium 4.2 mmol/L (3.5-5.0); Total Bilirubin 0.5 mg/dL (0.2-1.0)
[2021-03-25 06:59] LABS: Albumin/Globulin Ratio 1.2 (1-3); EGFR African American 89.4 (>60); EGFR Non-African American 73.9 (>60); Globulin 2.9 g/dL (2-4); Total Protein 6.3 g/dL (6.4-8.9)
[2021-03-25] MEDS: Multivitamins/Minerals TAB PO SCH (10:22)
[2021-03-25] MEDS: Aspirin EC 81 mg TAB.EC (enteric coated) PO SCH (10:22)
[2021-03-25 10:45] LABS: INR 1.42 (0.82-1.09)
[2021-03-25 17:27] LABS: C Reactive Protein 119.5 mg/L (<8.01)
[2021-03-25] MEDS ORDERED: Polyethylene Glycol 3350 17 GM PACKET PO ONE (20:43)
[2021-03-25] MEDS ORDERED: Senna/Docusate 8.6/50 mg (NF) TAB PO PRN (20:44)
[2021-03-25] MEDS ORDERED: Senna TAB 8.6 mg TAB PO PRN (20:50)
[2021-03-26 07:46] LABS: ABS Lymphocytes 0.8 10^3/ul (1.0-4.8); ABS Monocytes 0.6 10^3/ul (0-0.8); ABS Neutrophils 4.2 10^3/ul (1.5-7.7); Eosinophil % 0.4 %; Hematocrit 40 % (42-52); Hemoglobin 13.7 g/dL (14.0-18.0); Lymphocyte % 14.6 %; Mean Corpuscular HGB Conc 34 g/dL (31-36); Mean Corpuscular Hemoglobin 32 pg (27-31); Mean Corpuscular Volume 92 fL (80-94); Mean Platelet Volume 7.8 fL (7.4-10.4); Platelet Count 152 10^3/uL (150-450); Red Blood Count 4.32 10^6 /uL (4.18-5.48); Red Cell Distribution Width 13 % (10-15); White Blood Count 5.6 10^3/uL (3.5-10.8)
[2021-03-26 08:30] LABS: Albumin 3.3 g/dL (3.2-5.2); Albumin/Globulin Ratio 1.1 (1-3); Calcium 8.1 mg/dL (8.6-10.3); EGFR African American 99.8 (>60); EGFR Non-African American 82.5 (>60); Globulin 2.9 g/dL (2-4); Potassium 4.1 mmol/L (3.5-5.0); Total Bilirubin 0.6 mg/dL (0.2-1.0); Total Protein 6.2 g/dL (6.4-8.9)
[2021-03-26] MEDS: Multivitamins/Minerals TAB PO SCH (10:21)
[2021-03-26] MEDS: Aspirin EC 81 mg TAB.EC (enteric coated) PO SCH (10:21)
[2021-03-26 17:26] VITALS: BP 104/68
[2021-03-28 02:28] LABS: Anaplasma phagocytophilum Negative (Negative); B. miyamotoi PCR, B Negative (Negative); Babesia divergens/MO-1 Negative (Negative); Babesia ducani Negative (Negative); Ehrlichia chaffeensis Negative (Negative); Ehrlichia ewingii/canis Negative (Negative); Ehrlichia muris eauclairensis Negative (Negative)
[2021-03-29 17:23] LABS: Anaplasma phagocytophilium <1:64 titer (<1:64); Ehrlichia chaffeensis IgG AB <1:64 titer (<1:64); Lyme Disease Serology Positive (Negative)
[2021-03-31 00:19] LABS: IgG Immunoblot Negative (Negative); IgM Immunoblot Negative (Negative)
== END 2021-03-26 18:00 | disposition home or self-care (01) | DRG 313 ==
LOC: ED 14:58 → MEDTELE 14:58 → OBSVTOIN 22:39
PROVIDERS: ADMIT Internal Medicine; ATTEND Internal Medicine